=== PATIENT | male | born 1955 | race Hispanic/Latino ===

== ENCOUNTER 2017-01-11 10:29 | Emergency (ER) | payer MEDICARE, OTHER ==
[2017-01-11 10:30] VITALS: BMI 24.4
[2017-01-11 10:41] VITALS: BP 145/70; PULSE 89; RESP 20; TEMP 97.8; O2SAT 99
--- NOTE | 2017-01-11 11:17 | ED PDOC ---
Lower Extremity Pain/Injury Time Seen by Provider: 01/11/17 10:45 Chief Complaint (Nursing): Lower Extremity Problem/Injury Chief Complaint (Provider): Right Leg Pain History Per: Patient History/Exam Limitations: no limitations Current Symptoms Are (Timing): Still Present Additional Complaint(s): Delano Stone, a 61 year old male, who had a below the knee left leg amputation 6 weeks ago presents to the ED complaining of right foot pain. He states that he was at home when the pain started. The patient states he has gangrene in his right foot and pain in his right toes. Denies any other medical problems. PMD: Sudhakar Wesley Past Medical History Reviewed: Historical Data, Nursing Documentation, Vital Signs Vital Signs: Last Vital Signs Temp 97.8 F 01/11/17 10:40 Pulse 89 01/11/17 10:40 Resp 20 01/11/17 10:40 BP 145/70 01/11/17 10:40 Pulse Ox 99 01/11/17 10:40 - Medical History PMH: Anemia, Anxiety, Diabetes, HTN, Hypercholesterolemia, Peripheral Edema ( rle +1) Denies: Alzheimer's Disease, Depression, HIV, Chronic Kidney Disease Other PMH: Left leg below the knee amputation. - Surgical History Surgical History: CABG Other surgeries: 3 way bypass surgery. - Family History Family History: States: Unknown Family Hx - Social History Current smoker - smoking cessation education provided: Yes SMOKER/PACKS PER DAY:: 1 (1 pack per day for 42 years) Alcohol: None Drugs: Denies - Home Medications Home Medications: Ambulatory Orders Medication Instructions Recorded Oxycodone HCl [Oxycontin] 20 mg PO Q12 01/07/17 Zolpidem [Ambien] 10 mg PO HS 01/07/17 metFORMIN [glucOPHAGE] 500 mg PO BID 01/07/17 traMADol [Ultram] 50 mg PO Q8 PRN 01/07/17 Doxycycline Hyclate [Doryx] 100 mg PO Q12 #14 cap 01/09/17 Lisinopril [Zestril] 2.5 mg PO DAILY #30 tab 01/09/17 levoFLOXacin [Levaquin] 750 mg PO DAILY #7 tab 01/09/17 - Allergies Allergies/Adverse Reactions: Allergies Allergy/AdvReac Type Severity Reaction Status Date / Time No Known Allergies Allergy Verified 01/11/17 10:46 Review of Systems Musculoskeletal: Positive for: Foot Pain (Right foot pain) Physical Exam - Reviewed Nursing Documentation Reviewed: Yes Vital Signs Reviewed: Yes - Physical Exam Appears: Positive for: Non-toxic, No Acute Distress Head Exam: Positive for: ATRAUMATIC, NORMAL INSPECTION, NORMOCEPHALIC Skin: Positive for: Normal Color, Warm, Dry Eye Exam: Positive for: Normal appearance, EOMI, PERRL ENT: Positive for: Normal ENT Inspection (Edentulous) Neck: Positive for: Normal, Painless ROM, Supple Cardiovascular/Chest: Positive for: Regular Rate, Rhythm, Chest Non Tender. Negative for: Tachycardia Respiratory: Positive for: Normal Breath Sounds. Negative for: Wheezing, Respiratory Distress Gastrointestinal/Abdominal: Positive for: Normal Exam, Bowel Sounds, Soft. Negative for: Tenderness, Distended, Guarding, Rebound Back: Positive for: Normal Inspection Extremity: Positive for: Normal ROM, Other (Left leg below the knee amputation, no induration;No edema; Toes positive for gangrene). Negative for: Tenderness, Pedal Edema, Deformity, Swelling Neurologic/Psych: Positive for: Alert, Oriented - Laboratory Results Result Diagrams: 01/11/17 11:59 01/11/17 12:00 - ECG O2 Sat by Pulse Oximetry: 99 (RA) Pulse Ox Interpretation: Normal Medical Decision Making Medical Decision Makin Initial Impression: 61 year old male presenting with right foot pain Initial Plan: * EKG * Comp Metabolic Panel * CBC * Erythrocyte Sedimentation Rate * Partial thromboplastin time * Prothrombonin time * Toradol 30mg IV * Blood culture * [id number] * RAD right foot * Reevaluation Scribe Attestation Documented by Kanika King acting as a scribe for Charu Patel MD. Provider Attestation: All medical record entries made by the Scribe were at my direction and personally dictated by me. I have reviewed the chart and agree that the record accurately reflects my personal performance of the history, physical exam, medical decision making, and the department course for this patient. I have also personally directed, reviewed, and agree with the discharge instructions and disposition. Disposition - Clinical Impression Clinical Impression: Diabetic neuropathy - Patient ED Disposition Is Patient to be Admitted: No Doctor Will See Patient In The: Office Counseled Patient/Family Regarding: Diagnosis, Need For Followup - Disposition Referrals: Stew Murphy DO [Family Provider] - Disposition: Routine/Home Disposition Time: 16:43 Condition: STABLE Instructions: Diabetic Neuropathy (ED), Peripheral Artery Disease (ED) - POA Present On Arrival: None
[2017-01-11] MEDS ORDERED: Sodium Chloride 0.9% 1,000 ML IV STA (11:22)
[2017-01-11 12:03] LABS: BASO # 0.1 K/uL (0.0-0.2); EOS # 0.5 K/uL (0.0-0.7); EOS % 6.1 % (0.0-4.0); HEMOGLOBIN 11.2 g/dL (12.0-18.0); LYMPH # 1.8 K/uL (1.0-4.3); LYMPH % 22.6 % (20.0-40.0); MEAN CELL VOLUME 88.4 fl (80.0-94.0); MEAN CORPUSCULAR HEMOGLOBIN 29.6 pg (27.0-31.0); MEAN CORPUSCULAR HGB CONC 33.5 g/dL (33.0-37.0); MEAN PLATELET VOLUME 9.3 fl (7.2-11.7); MONO # 0.7 K/uL (0.0-0.8); MONO % 8.3 % (0.0-10.0); NEUT # 4.9 K/uL (1.8-7.0); NRBC % 0.1 % (0.0-0.0); RBC 3.79 Mil/uL (4.40-5.90); RED CELL DISTRIBUTION WIDTH 14.1 % (11.5-14.5)
[2017-01-11 12:10] LABS: ALB/GLOB RATIO 1.1 (1.0-2.1); ALBUMIN 3.6 g/dL (3.5-5.0); ALT/SGPT 33 U/L (21-72); AST/SGOT 22 U/L (17-59); BLOOD UREA NITROGEN 20 mg/dl (9-20); CALCIUM 8.9 mg/dL (8.4-10.2); GFR AFRICAN-AMERICAN > 60; GFR NON-AFRICAN AMERICAN > 60
[2017-01-11 12:45] LABS: PARTIAL THROMBOPLASTIN TIME 30.4 Seconds (25.6-37.1); PROTHROMBIN TIME 11.2 Seconds (9.8-13.1)
--- NOTE | 2017-01-11 14:47 | RAD ---
PROCEDURE: Right Foot Radiographs. HISTORY: pain COMPARISON: Comparison made with radiographs right foot 08/31/2016. The the the the FINDINGS: BONES: No evidence of acute displaced fracture nor dislocation. Questionable localized destructive changes of the medial aspect distal tuft distal phalanx great toe. There also appears to be localized soft tissue loss at this level region as well. Rule out ulceration. Osteomyelitis must be excluded. Mild overgrowth of the head of the 1st metatarsal and moderate DJD 1st MTP joint. There also moderate degenerative changes of the DIP joint 1st toe. Hammertoe deformities 2nd 3rd and 4th digits preclude adequate evaluation of the distal phalanges of these digits. Plantar and posterior calcaneal enthesophyte formation. JOINTS: As above SOFT TISSUES: As above OTHER FINDINGS: None. IMPRESSION: No evidence of acute displaced fracture nor dislocation. Questionable localized destructive changes of the medial aspect distal tuft distal phalanx great toe. There also appears to be localized soft tissue loss at this level region as well. Rule out ulceration. Osteomyelitis must be excluded consider followup MRI. Note this report was placed in PA review folder for followup.
== END 2017-01-11 17:19 | disposition home or self-care (01) ==
LOC: H.ER 10:29
DX: Z89.512 Acquired absence of left leg below knee (principal); E11.40 Type 2 diabetes mellitus with diabetic neuropathy, unspecified; F17.210 Nicotine dependence, cigarettes, uncomplicated; I10 Essential (primary) hypertension; Z79.84 Long term (current) use of oral hypoglycemic drugs; Z95.1 Presence of aortocoronary bypass graft
CPT/HCPCS: 73630; 80053; 82948; 85025; 85610; 85651; 85730; 87040; 96360; 99282; J1885; J7040

== ENCOUNTER 2017-02-02 18:59 | Observation (INO) | payer MEDICARE, OTHER ==
[2017-02-02] MEDS ORDERED: Piperacillin/Tazobact 3.375 GM in Sodium Chloride 0.9% 100 ML IVPB STA (19:29)
--- NOTE | 2017-02-02 19:51 | ED PDOC ---
HPI: General Adult Time Seen by Provider: 02/02/17 19:20 Chief Complaint (Nursing): Lower Extremity Problem/Injury Chief Complaint (Provider): Right foot and left shoulder pain History Per: Patient History/Exam Limitations: no limitations Onset/Duration Of Symptoms: Days (x 5) Current Symptoms Are (Timing): Still Present Additional Complaint(s): Delano is a 61 y/o male who states for the past 5 days hes had pain to the right foot, and that he currently has ulcers there. He is currently under the care of Dr. Bojorquez for diabetic foot ulcer, but is not on antibiotics. Further he states that 1 hour prior to arrival he had sudden onset of atraumatic left shoulder pain which is non-radiating. Denies chest pain, shortness of breath, and palpitations. PMD: Dr. Bojorquez Past Medical History Reviewed: Historical Data, Nursing Documentation, Vital Signs Vital Signs: Last Vital Signs Temp 98.2 F 02/02/17 19:04 Pulse 83 02/02/17 19:04 Resp 16 02/02/17 19:04 BP 141/73 02/02/17 19:04 Pulse Ox 100 02/02/17 21:40 - Medical History PMH: Anemia, Anxiety, Diabetes, HTN, Hypercholesterolemia, Peripheral Edema ( rle +1) Denies: Alzheimer's Disease, Depression, HIV, Chronic Kidney Disease - Surgical History Surgical History: CABG (x 3) Other surgeries: stress test done in 06/2016 - Family History Family History: States: Unknown Family Hx - Home Medications Home Medications: Ambulatory Orders Medication Instructions Recorded Oxycodone HCl [Oxycontin] 20 mg PO Q12 01/07/17 Zolpidem [Ambien] 10 mg PO HS 01/07/17 traMADol [Ultram] 50 mg PO Q8 PRN 01/07/17 Aspirin [Aspirin Chewable] 81 mg PO DAILY #14 01/26/17 Isosorbide Mononitrate [Imdur] 60 mg PO DAILY #14 tab 01/26/17 Lisinopril [Zestril] 2.5 mg PO DAILY #14 tab 01/26/17 Metformin HCl [Glucophage] 500 mg PO BID #30 tablet 01/26/17 - Allergies Allergies/Adverse Reactions: Allergies Allergy/AdvReac Type Severity Reaction Status Date / Time No Known Allergies Allergy Verified 01/25/17 14:21 Review of Systems ROS Statement: Except As Marked, All Systems Reviewed And Found Negative Cardiovascular: Negative for: Chest Pain, Palpitations Respiratory: Negative for: Shortness of Breath Musculoskeletal: Positive for: Shoulder Pain (Left), Foot Pain (Right) Physical Exam - Reviewed Nursing Documentation Reviewed: Yes Vital Signs Reviewed: Yes - Physical Exam Appears: Positive for: Non-toxic, No Acute Distress Head Exam: Positive for: ATRAUMATIC, NORMOCEPHALIC Skin: Positive for: Normal Color, Warm, Dry Eye Exam: Positive for: EOMI, Normal appearance, PERRL Neck: Positive for: Normal, Painless ROM, Supple Cardiovascular/Chest: Positive for: Regular Rate, Rhythm. Negative for: Murmur Respiratory: Positive for: Normal Breath Sounds. Negative for: Accessory Muscle Use, Respiratory Distress Pulses-Dorsalis Pedis (R): 2+ Gastrointestinal/Abdominal: Positive for: Normal Exam, Soft. Negative for: Tenderness Back: Positive for: Normal Inspection. Negative for: L CVA Tenderness, R CVA Tenderness, Vertebral Tenderness Extremity: Positive for: Deformity (Left BKA), Other (Wet gangrene on R 4th toe ; dry gangrene on right great toe) Neurologic/Psych: Positive for: Alert, Oriented - Laboratory Results Result Diagrams: 02/02/17 20:34 02/02/17 20:34 - ECG O2 Sat by Pulse Oximetry: 100 (RA) Pulse Ox Interpretation: Normal - Radiology X-Ray: Interpreted by Me (CXR, L shoulder x-ray) X-Ray Interpretation: No Acute Disease - Progress ED Course And Treament: Pt. evaluated by Mikki, podiatry resident, who spoke with Dr. Ríos and states R 4th toe gangrene is wet and pt. requires admission. Case d/w Dr. Gustafson, hospitalist, and arrangements made for admission. Medical Decision Making Medical Decision Making: Time: 19:29 Initial Plan: --Labs --CXR --EKG --Started Vancomycin and Zosyn --Pending X-Ray Right Foot and Left Shoulder Scribe Attestation: Documented by Jocelyne Joya, acting as a scribe for Tyrone Young PA-C. Provider Scribe Attestation: All medical record entries made by the Scribe were at my direction and personally dictated by me. I have reviewed the chart and agree that the record accurately reflects my personal performance of the history, physical exam, medical decision making, and the department course for this patient. I have also personally directed, reviewed, and agree with the discharge instructions and disposition. Disposition - Clinical Impression Clinical Impression: Toe gangrene - Patient ED Disposition Is Patient to be Admitted: No - Disposition Disposition Time: 21:38 Condition: STABLE
[2017-02-02 20:39] LABS: BASO # 0.1 K/uL (0.0-0.2); BASO % 0.5 % (0.0-2.0); EOS # 0.4 K/uL (0.0-0.7); EOS % 4.1 % (0.0-4.0); HEMATOCRIT 36.9 % (35.0-51.0); LYMPH # 1.8 K/uL (1.0-4.3); LYMPH % 17.6 % (20.0-40.0); MEAN CORPUSCULAR HEMOGLOBIN 29.9 pg (27.0-31.0); MEAN PLATELET VOLUME 10.1 fl (7.2-11.7); MONO # 0.7 K/uL (0.0-0.8); MONO % 6.3 % (0.0-10.0); NEUT # 7.5 K/uL (1.8-7.0); NEUT % 71.5 % (50.0-75.0); RED CELL DISTRIBUTION WIDTH 14.2 % (11.5-14.5); WHITE BLOOD COUNT 10.4 K/uL (4.8-10.8)
[2017-02-02 20:48] LABS: ALB/GLOB RATIO 1.1 (1.0-2.1); ALKALINE PHOSPHATASE 87 U/L (38-126); ALT/SGPT 30 U/L (21-72); AST/SGOT 22 U/L (17-59); BILIRUBIN,TOTAL 0.5 mg/dl (0.2-1.3); BLOOD UREA NITROGEN 29 mg/dl (9-20); CALCIUM 9.7 mg/dL (8.4-10.2); CARBON DIOXIDE 24 mmol/L (22-30); CHLORIDE 109 mmol/L (98-107); GFR AFRICAN-AMERICAN > 60; GLUCOSE,RANDOM 138 mg/dL (75-110); POTASSIUM 4.8 MMOL/L (3.6-5.0); SODIUM 142 mmol/l (132-148); TOTAL PROTEIN 7.9 G/DL (6.3-8.2)
[2017-02-02] MEDS ORDERED: Piperacillin/Tazobact 3.375 gm Inj IVPB ONE (20:56)
[2017-02-02] MEDS ORDERED: Vancomycin 1 g Inj ONE (20:56)
--- NOTE | 2017-02-02 21:09 | CP.PCM.CON ---
History of Present Illness - History of Present Illness History of Present Illness: 61 y/o male with PMHx of CAD s/p CABG, IVDA, Hepatitis C, DM, osteomyelitis, and L BKA seen at bedside today podiatry consult. Pt is well known to podiatry service at [facility] and was [place] [facility] [place] and advised to follow-up at the wound care center. He was also seen on 01/26 by podiatry at [place] and confirmed his appointment to follow up with his pulper operator Dr. Colunga. Patient states he came to [facility] today because he was in the area and he experienced sudden onset left arm pain. Pt seen resting comfortably in the bed at time of visit this afternoon. Pt complains of tenderness and pain to the right foot today, specifically the 4th digit. Pt denies F/C/N/V/SOB. Social: denies EtOH. Admits to 1 pack cigarettes/day. Denies illicit drug use. All: NKDA Review of Systems - Review of Systems All systems: reviewed and no additional remarkable complaints except (per HPI) Past Patient History - Infectious Disease Hx of Infectious Diseases: None - Tetanus Immunizations Tetanus Immunization: Up to Date (07/2014) - Past Medical History & Family History Past Medical History?: Yes - Past Social History Smoking Status: Current Some Days Smoker - CARDIAC Hx Hypercholesterolemia: Yes Hx Hypertension: Yes Hx Peripheral Edema: Yes (rle +1) - PULMONARY Hx Respiratory Disorders: Yes Other/Comment: smoke 1PPD - NEUROLOGICAL Hx Alzheimer's Disease: No - HEENT Hx HEENT Problems: No - RENAL Hx Chronic Kidney Disease: No - ENDOCRINE/METABOLIC Hx Endocrine Disorders: Yes Hx Diabetes Mellitus Type 2: Yes - HEMATOLOGICAL/ONCOLOGICAL Hx Anemia: Yes Hx Human Immunodeficiency Virus (HIV): No - INTEGUMENTARY Hx Dermatological Problems: Yes (SKIN DISCOLORATION) Other/Comment: l bka,rt 3RD,4TH TOES AND grt TOE - MUSCULOSKELETAL/RHEUMATOLOGICAL Hx Musculoskeletal Disorders: Yes Hx Falls: Yes Hx Osteomyelitis: Yes Hx Unsteady Gait: Yes Other/Comment: lbka - GASTROINTESTINAL Hx Gastrointestinal Disorders: No - GENITOURINARY/GYNECOLOGICAL Hx Genitourinary Disorders: Yes Hx Prostate Problems: Yes (PROSTATE ca) - PSYCHIATRIC Hx Anxiety: Yes Hx Depression: No - SURGICAL HISTORY Hx Coronary Artery Bypass Graft: Yes (x 3) - ANESTHESIA Hx Anesthesia: Yes Hx Anesthesia Reactions: No Hx Malignant Hyperthermia: No Meds Allergies/Adverse Reactions: Allergies Allergy/AdvReac Type Severity Reaction Status Date / Time No Known Allergies Allergy Verified 01/25/17 14:21 Physical Exam - Constitutional Appears: Well, Non-toxic, No Acute Distress - Extremities Exam Additional comments: Lower extremity focused examination: Left: BKA stump Right: Vasc: DP and PT pulses palpable 2/4, temperature gradient warm to cold from proximal to distal. CFT < 3 sec to all digits, no pedal edema Neuro: protective sensation grossly diminished Derm: Dry eschar on distal aspect of right hallux. No fluctuance, no malodor, no drainage, no erythema. Wet ulceration noted to distal aspect of 4th toe with fibronecrotic base. Localized erythema noted to 4th digit distally surrounding wound. No purulence, no fluctuance, no ascending cellulitis Ortho: Moderate pain on palpation to 4th digit. No tenderness to palpation of hallux - Neurological Exam Neurological exam: Alert, Oriented x3 - Psychiatric Exam Psychiatric exam: Normal Affect, Normal Mood Results - Vital Signs Recent Vital Signs: Last Vital Signs Temp 98.2 F 02/02/17 19:04 Pulse 83 02/02/17 19:04 Resp 16 02/02/17 19:04 BP 141/73 02/02/17 19:04 Pulse Ox 100 02/02/17 19:52 - Labs Result Diagrams: 02/02/17 20:34 02/02/17 20:34 Labs: Laboratory Results - last 24 hr 02/02/17 20:34 WBC 10.4 RBC 4.20 L Hgb 12.5 Hct 36.9 MCV 88.0 MCH 29.9 MCHC 34.0 RDW 14.2 Plt Count 324 MPV 10.1 Neut % (Auto) 71.5 Lymph % (Auto) 17.6 L [place] % (Auto) 6.3 Eos % (Auto) 4.1 H Baso % (Auto) 0.5 Neut # 7.5 H Lymph # 1.8 Price # 0.7 Eos # 0.4 Baso # 0.1 Assessment & Plan - Assessment and Plan (Free Text) Assessment: 61 year old male with right foot dry gangrene to hallux and diabetic foot ulceration to 4th toe Plan: Pt seen and evaluated in ED Discussed plan in detail with attending Dr. Rivreo Chart, labs and vitals were reviewed: afebrile, WBC 10.4 Stat dose of Vanco/Zosyn dispensed by ED Betadine and DSD applied to right foot wounds. Dressing to be kept C/D/I Pt to be admitted for left arm pain F/U ID for IV abx - recommendations appreciated Podiatry will continue to monitor closely while in house
[2017-02-02] MEDS ORDERED: Sodium Chloride 0.9% 1,000 ML IV STA (21:11)
[2017-02-02 21:14] LABS: VENOUS BLOOD GAS BASE EXCESS -10.3 mmol/L (0.0-2.0); VENOUS BLOOD GAS PCO2 63 mmHg (40-60); VENOUS BLOOD PH 7.11 (7.32-7.43)
--- NOTE | 2017-02-02 21:47 | CP.PCM.HP ---
History of Present Illness - History of Present Illness History of Present Illness: PCP: Dr Bojorquez Chief Complaint: Left shoulder and right foot pain HPI: 61 years old Homeless male who was discharged from [facility] on 01/23 diagnosed with Dry gangrene of the right foot has hx of PVD, DM II and diabetic foot ulcers, HLD, Smoker, CAD s/p CABG comes to the ED with one hr of sudden unset, non-radiating left shoulder pain which was continuous. He took no medication. He also complained of 5 days of right foot and leg pain, area of his ulceration. He is being followed by Dr Bojorquez for his Diabetic foot ulcer. No fever, Chills, Chest pain, SOB nor Palpitations. PMH: Anemia, Anxiety, DM II with Diabetic Neuropathy and Diabetic foot Ulcers; HTN; HLD; Peripheral Edema (rle +1); Hepatitis C; CAD; Osteomyelitis; Prostate Ca PSH: CABG x3 vessel disease; Left BKA SH: Hx Cocaine and IVDA; ETOH abuse; 1PPD smoking of cigarettes; Homeless FH: Unknown family Hx Allergies: NKDA Present on Admission - Present on Admission Any Indicators Present on Admission: No History of DVT/PE: No History of Uncontrolled Diabetes: No Urinary Catheter: No Decubitus Ulcer Present: No Review of Systems - Constitutional Constitutional: absent: Anorexia, Fever, Malaise, Night Sweats, Snoring - EENT Eyes: Requires Corrective Lenses. absent: Blurred Vision, Diplopia, Photophobia Ears: absent: Ear Pain, Tinnitus Nose/Mouth/Throat: absent: Epistaxis, Nasal Congestion, Nasal Discharge - Cardiovascular Cardiovascular: absent: Chest Pain, Dyspnea, Leg Edema - Respiratory Respiratory: absent: Cough, Dyspnea, Wheezing - Gastrointestinal Gastrointestinal: absent: Abdominal Pain, Constipation, Diarrhea, Nausea, Vomiting - Genitourinary Genitourinary: absent: Dysuria, Flank Pain, Hematuria - Musculoskeletal Additional comments: Pain to the right leg andfoor. left shoulder pain - Integumentary Integumentary: Skin Pain, Skin Ulcer - Neurological Neurological: absent: Confusion, Dizziness, Focal Weakness, Headaches - Psychiatric Psychiatric: Anxiety. absent: Depression, Panic Attacks - Endocrine Endocrine: absent: Palpitations, Polydipsia, Polyphagia, Polyuria - Hematologic/Lymphatic Hematologic: absent: Easy Bleeding, Easy Bruising Past Patient History - Infectious Disease Hx of Infectious Diseases: None - Tetanus Immunizations Tetanus Immunization: Up to Date (07/2014) - Past Medical History & Family History Past Medical History?: Yes - Past Social History Smoking Status: Current Some Days Smoker Chewing Tobacco Use: No Cigar Use: No Drugs: Cocaine, Opiates Home Situation {Lives}: Homeless - CARDIAC Hx Hypercholesterolemia: Yes Hx Hypertension: Yes Hx Peripheral Edema: Yes (rle +1) - PULMONARY Hx Respiratory Disorders: Yes Other/Comment: smoke 1PPD - NEUROLOGICAL Hx Alzheimer's Disease: No - HEENT Hx HEENT Problems: No - RENAL Hx Chronic Kidney Disease: No - ENDOCRINE/METABOLIC Hx Endocrine Disorders: Yes Hx Diabetes Mellitus Type 2: Yes - HEMATOLOGICAL/ONCOLOGICAL Hx Anemia: Yes Hx Human Immunodeficiency Virus (HIV): No - INTEGUMENTARY Hx Dermatological Problems: Yes (SKIN DISCOLORATION) Other/Comment: l bka,rt 3RD,4TH TOES AND grt TOE - MUSCULOSKELETAL/RHEUMATOLOGICAL Hx Musculoskeletal Disorders: Yes Hx Falls: Yes Hx Osteomyelitis: Yes Hx Unsteady Gait: Yes Other/Comment: lbka - GASTROINTESTINAL Hx Gastrointestinal Disorders: No - GENITOURINARY/GYNECOLOGICAL Hx Genitourinary Disorders: Yes Hx Prostate Problems: Yes (PROSTATE ca) - PSYCHIATRIC Hx Anxiety: Yes Hx Depression: No - SURGICAL HISTORY Hx Coronary Artery Bypass Graft: Yes (x 3) - ANESTHESIA Hx Anesthesia: Yes Hx Anesthesia Reactions: No Hx Malignant Hyperthermia: No Meds Allergies/Adverse Reactions: Allergies Allergy/AdvReac Type Severity Reaction Status Date / Time No Known Allergies Allergy Verified 01/25/17 14:21 Physical Exam - Constitutional Appears: No Acute Distress - Head Exam Head Exam: ATRAUMATIC, NORMAL INSPECTION, NORMOCEPHALIC - Eye Exam Eye Exam: EOMI, Normal appearance Pupil Exam: NORMAL ACCOMODATION, PERRL - ENT Exam ENT Exam: Mucous Membranes Dry, Normal Exam - Neck Exam Neck exam: Positive for: Full Rom, Normal Inspection. Negative for: Lymphadenopathy, Tenderness - Respiratory Exam Respiratory Exam: Clear to Auscultation Bilateral. absent: Rales, Rhonchi, Wheezes - Cardiovascular Exam Cardiovascular Exam: REGULAR RHYTHM, RRR, +S1, +S2 - GI/Abdominal Exam GI & Abdominal Exam: Normal Bowel Sounds, Soft. absent: Mass, Organomegaly - Rectal Exam Rectal Exam: Deferred - Extremities Exam Additional comments: L BKA Right foot and distal leg with wound dressing, clean and dry. recently done by Podiatry. - Back Exam Back exam: NORMAL INSPECTION. absent: CVA tenderness (L), CVA tenderness (R) - Neurological Exam Additional comments: Sleepy , arousable with pain but falls back to sleep. Says that he is tired. No facial droop, moving both upper extremities, Clear speech. - Skin Skin Exam: Intact, Normal Color, Warm Results - Vital Signs Recent Vital Signs: Last Vital Signs Temp 98.2 F 02/02/17 19:04 Pulse 83 02/02/17 19:04 Resp 16 02/02/17 19:04 BP 141/73 02/02/17 19:04 Pulse Ox 100 02/02/17 21:40 - Labs Result Diagrams: 02/02/17 20:34 02/02/17 20:34 Labs: Laboratory Results - last 24 hr 02/02/17 02/02/17 02/02/17 20:34 20:34 20:47 WBC 10.4 RBC 4.20 L Hgb 12.5 Hct 36.9 MCV 88.0 MCH 29.9 MCHC 34.0 RDW 14.2 Plt Count 324 MPV 10.1 Neut % (Auto) 71.5 Lymph % (Auto) 17.6 L [place] % (Auto) 6.3 Eos % (Auto) 4.1 H Baso % (Auto) 0.5 Neut # 7.5 H Lymph # 1.8 [place] # 0.7 Eos # 0.4 Baso # 0.1 pO2 VBG pH VBG pCO2 VBG HCO3 VBG Total CO2 VBG O2 Sat (Calc) VBG Base Excess Glucose Lactate FiO2 Crit Value Called To Crit Value Called By Crit Value Read Back Blood Gas Notified Time Sodium 142 Potassium 4.8 Chloride 109 H Carbon Dioxide 24 Anion Gap 14 BUN 29 H Creatinine 1.0 Est GFR ( Amer) > 60 Est GFR (Non-Af Amer) > 60 Random Glucose 138 H Calcium 9.7 Total Bilirubin 0.5 AST 22 ALT 30 Alkaline Phosphatase 87 Troponin I 0.0360 Total Protein 7.9 Albumin 4.2 Globulin 3.7 Albumin/Globulin Ratio 1.1 02/02/17 21:04 WBC RBC Hgb Hct MCV MCH MCHC RDW Plt Count MPV Neut % (Auto) Lymph % (Auto) [place] % (Auto) Eos % (Auto) Baso % (Auto) Neut # Lymph # [place] # Eos # Baso # pO2 36 VBG pH 7.11 L* VBG pCO2 63 H VBG HCO3 15.5 VBG Total CO2 21.9 L VBG O2 Sat (Calc) 60.9 VBG Base Excess -10.3 L Glucose 136 H Lactate 1.9 FiO2 21.0 Crit Value Called To Pepito persaud Crit Value Called By 23 Crit Value Read Back Y Blood Gas Notified Time 2112 Sodium 123.0 L Potassium Chloride 107.0 Carbon Dioxide Anion Gap BUN Creatinine Est GFR ( Amer) Est GFR (Non-Af Amer) Random Glucose Calcium Total Bilirubin AST ALT Alkaline Phosphatase Troponin I Total Protein Albumin Globulin Albumin/Globulin Ratio Assessment & Plan - Assessment and Plan (Free Text) Plan: 61 years old Homeless male who was discharged from [facility] on diagnosed with Dry gangrene of the right foot has hx of PVD, DM II and diabetic foot ulcers, HLD, Smoker, CAD s/p CABG comes to the ED with one hr of sudden unset, non-radiating left shoulder pain which was continuous.He also complained of 5 days of right foot and leg pain, area of his ulceration. #. Shoulder Pain r/o CAD as patient has significant hx of CAD, but probably it is muscular - Observation in Telemetry - Consult Dr Hidalgo cardiology - Serial Troponin - Serial EKG - ASA - Imdur #. Diabetic Foot Ulcee r/o Osteomyelitis - Consult Dr Ríos Podiatry - Vancomycin - zosyn - Tramadol for pain - Podiatry following #. DM II with diabetic neuropathy - Diabetic Diet - Regular Insulin sliding scall according to accucheck - Metformin - Follow HbA1c #. Dehydration - IV Fluids #. Hx of Hepatitis C #. Nicotine addiction - nicotine patch - DVT Prophylaxis with Lovenox #. Code Status: Full - Date & Time Date: 02/02/17 Time: 21:46
[2017-02-02] MEDS ORDERED: Naloxone 0.4 mg/ml Inj (Adult) IVP STA (22:01)
[2017-02-02] MEDS ORDERED: Sodium Chloride 0.45% 1,000 ML IV SCH (23:00)
[2017-02-03 02:05] VITALS: BMI 24.1
[2017-02-03] MEDS ORDERED: Piperacillin/Tazobact 3.375 GM in Sodium Chloride 0.9% 100 ML IVPB SCH (04:00)
[2017-02-03 05:20] LABS: BASO # 0.1 K/uL (0.0-0.2); BASO % 0.8 % (0.0-2.0); EOS # 0.5 K/uL (0.0-0.7); EOS % 6.3 % (0.0-4.0); HEMATOCRIT 33.2 % (35.0-51.0); LYMPH # 1.9 K/uL (1.0-4.3); LYMPH % 22.4 % (20.0-40.0); MEAN CELL VOLUME 88.8 fl (80.0-94.0); MEAN CORPUSCULAR HEMOGLOBIN 29.3 pg (27.0-31.0); MEAN PLATELET VOLUME 9.9 fl (7.2-11.7); MONO # 0.7 K/uL (0.0-0.8); MONO % 7.9 % (0.0-10.0); NEUT # 5.3 K/uL (1.8-7.0); NEUT % 62.6 % (50.0-75.0); RED CELL DISTRIBUTION WIDTH 13.9 % (11.5-14.5); WHITE BLOOD COUNT 8.5 K/uL (4.8-10.8)
[2017-02-03 05:31] LABS: BLOOD UREA NITROGEN 26 mg/dl (9-20); CALCIUM 8.7 mg/dL (8.4-10.2); CARBON DIOXIDE 22 mmol/L (22-30); CHLORIDE 110 mmol/L (98-107); GFR AFRICAN-AMERICAN > 60; GLUCOSE,RANDOM 132 mg/dL (75-110); POTASSIUM 4.1 MMOL/L (3.6-5.0); SODIUM 140 mmol/l (132-148)
[2017-02-03 05:46] LABS: PARTIAL THROMBOPLASTIN TIME 26.4 Seconds (25.6-37.1)
[2017-02-03] MEDS: Insulin Regular 100 units/ml SC SCH ×2 (06:30→11:43)
[2017-02-03 08:23] VITALS: RESP 12
--- NOTE | 2017-02-03 08:25 | CP.PCM.PN ---
Subjective - Date & Time of Evaluation Date of Evaluation: 02/03/17 Time of Evaluation: 08:00 - Subjective Subjective: 61 year old male seen at bedside today for right hallux and 4th digit dry gangrene. Patient seen resting comfortably, AAO x3 and in NAD. Patient states that he is in a lot of pain today to the right foot. Denies n/v/sob/cp/chills or f. No other pedal complaint at this time. Objective - Vital Signs/Intake and Output Vital Signs (last 24 hours): Temp Pulse Resp BP Pulse Ox 97.5 F L 60 12 158/75 H 99 02/03/17 08:00 02/03/17 08:11 02/03/17 08:00 02/03/17 08:11 02/03/17 08:00 Intake and Output: 02/03/17 02/03/17 06:59 18:59 Intake Total 1250 Output Total 500 Balance 750 - Medications Medications: Current Medications Aspirin (Ecotrin) 81 mg PO DAILY [facility] Last Admin: 02/03/17 08:10 Dose: 81 mg Enoxaparin Sodium (Lovenox) 40 mg SC DAILY [facility] PRN Reason: Protocol Sodium Chloride (Sodium Chloride 0.45%) 1,000 mls @ 100 mls/hr IV .Q10H [facility] Stop: 02/03/17 22:52 Last Admin: 02/03/17 01:00 Dose: 100 mls/hr Insulin Human Regular (Humulin R) 0 units SC ACHS [facility] PRN Reason: Protocol Last Admin: 02/03/17 06:30 Dose: Not Given Isosorbide Mononitrate (Imdur) 60 mg PO DAILY [facility] Last Admin: 02/03/17 08:10 Dose: 60 mg Ketorolac Tromethamine (Toradol) 15 mg IVP Q6 PRN PRN Reason: Pain, severe (8-10) Lisinopril (Zestril) 2.5 mg PO DAILY [facility] Last Admin: 02/03/17 08:11 Dose: 2.5 mg Metformin HCl (Glucophage) 500 mg PO BID [facility] Last Admin: 02/03/17 08:10 Dose: 500 mg Nicotine (Nicoderm Cq) 1 patch TD DAILY [facility] Last Admin: 02/03/17 08:10 Dose: 1 patch Tramadol HCl (Ultram) 50 mg PO Q8 PRN PRN Reason: Pain (4-10) Last Admin: 02/02/17 23:45 Dose: 50 mg - Labs Labs: 02/03/17 04:20 02/03/17 04:20 PT 11.4 Seconds (9.8-13.1) 02/03/17 04:20 INR 1.0 (0.9-1.2) 02/03/17 04:20 APTT 26.4 Seconds (25.6-37.1) 02/03/17 04:20 - Constitutional Appears: Well, Non-toxic, No Acute Distress - Extremities Exam Additional comments: Vasc: DP and PT pulses palpable 2/4, temperature gradient warm to cold from proximal to distal. IRON MINER < 3 sec to all digits, no edema noted Neuro: protective sensation grossly diminished Derm: Dry eschar noted to the distal aspect of right hallux. No fluctuance, no malodor, no drainage, no erythema, no purulence noted. Wet ulceration noted to distal aspect of 4th toe with fibronecrotic base. Localized erythema noted to 4th digit distally surrounding wound. No purulence, no fluctuance, no ascending cellulitis Ortho: Moderate pain on palpation to 4th digit. No tenderness to palpation of hallux - Neurological Exam Neurological Exam: Alert, Awake, Oriented x3 - Psychiatric Exam Psychiatric exam: Normal Affect, Normal Mood Assessment and Plan - Assessment and Plan (Free Text) Assessment: 61 year old male with right foot dry gangrene to hallux and diabetic foot ulceration to 4th toe Plan: Pt seen and evaluated at bedside Discussed plan in detail with attending Dr. Rivero Chart, labs and vitals were reviewed: afebrile, WBC 8.5 Betadine and DSD applied to right foot wounds. Dressing to be kept C/D/I X-rays reviewed- no gas noted, no bony abnormalities noted at the area of concern Podiatry will continue to follow while in house
[2017-02-03 08:30] LABS: RBC URINE 32 /hpf (0-3); URINE BACTERIA RARE (<OCC); URINE BILIRUBIN NEGATIVE (NEGATIVE); URINE BLOOD MODERATE (NEGATIVE); URINE COLOR YELLOW (YELLOW); URINE GLUCOSE (UA) 50 mg/dL (Normal); URINE KETONE NEGATIVE (NEGATIVE); URINE LEUKOCYTE ESTERASE LARGE Leu/uL (Negative); URINE PROTEIN 30 mg/dL (NEGATIVE); URINE UROBILINOGEN 0.2-1.0 mg/dL (0.2-1.0); WBC URINE 364 /hpf (0-5)
[2017-02-03] MEDS ORDERED: Enoxaparin 40 mg Syringe SC SCH (09:00)
[2017-02-03] MEDS ORDERED: Patient's Own Med (Lisinopril [Zestril] 2.5 MG) PO SCH (09:00)
--- NOTE | 2017-02-03 09:04 | CP.PCM.DIS ---
Provider - Provider Date of Admission: 02/02/17 19:28 Attending physician: Eric Gustafson Primary care physician: Dr. Abraham Consults: podiatry consult Time Spent in preparation of Discharge (in minutes): 15 Hospital Course - Lab Results Lab Results: Most Recent Lab Values WBC 8.5 K/uL (4.8-10.8) 02/03/17 04:20 RBC 3.73 Mil/uL (4.40-5.90) L 02/03/17 04:20 Hgb 10.9 g/dL (12.0-18.0) L 02/03/17 04:20 Hct 33.2 % (35.0-51.0) L 02/03/17 04:20 MCV 88.8 fl (80.0-94.0) 02/03/17 04:20 MCH 29.3 pg (27.0-31.0) 02/03/17 04:20 MCHC 33.0 g/dL (33.0-37.0) 02/03/17 04:20 RDW 13.9 % (11.5-14.5) 02/03/17 04:20 Plt Count 261 K/uL (130-400) 02/03/17 04:20 MPV 9.9 fl (7.2-11.7) 02/03/17 04:20 Neut % (Auto) 62.6 % (50.0-75.0) 02/03/17 04:20 Lymph % (Auto) 22.4 % (20.0-40.0) 02/03/17 04:20 [place] % (Auto) 7.9 % (0.0-10.0) 02/03/17 04:20 Eos % (Auto) 6.3 % (0.0-4.0) H 02/03/17 04:20 Baso % (Auto) 0.8 % (0.0-2.0) 02/03/17 04:20 Neut # 5.3 K/uL (1.8-7.0) 02/03/17 04:20 Lymph # 1.9 K/uL (1.0-4.3) 02/03/17 04:20 [place] # 0.7 K/uL (0.0-0.8) 02/03/17 04:20 Eos # 0.5 K/uL (0.0-0.7) 02/03/17 04:20 Baso # 0.1 K/uL (0.0-0.2) 02/03/17 04:20 PT 11.4 Seconds (9.8-13.1) 02/03/17 04:20 INR 1.0 (0.9-1.2) 02/03/17 04:20 APTT 26.4 Seconds (25.6-37.1) 02/03/17 04:20 pO2 36 mm/Hg (30-55) 02/02/17 21:04 VBG pH 7.11 (7.32-7.43) L* 02/02/17 21:04 VBG pCO2 63 mmHg (40-60) H 02/02/17 21:04 VBG HCO3 15.5 mmol/L 02/02/17 21:04 VBG Total CO2 21.9 mmol/L (22-28) L 02/02/17 21:04 VBG O2 Sat (Calc) 60.9 % (40-65) 02/02/17 21:04 VBG Base Excess -10.3 mmol/L (0.0-2.0) L 02/02/17 21:04 Sodium 123.0 mmol/L (132-148) L 02/02/17 21:04 Chloride 107.0 mmol/L (98-107) 02/02/17 21:04 Glucose 136 mg/dL (75-110) H 02/02/17 21:04 Lactate 1.9 mmol/L (0.7-2.1) 02/02/17 21:04 FiO2 21.0 % 02/02/17 21:04 Crit Value Called To Pepito persaud 02/02/17 21:04 Crit Value Called By 23 02/02/17 21:04 Crit Value Read Back Y 02/02/17 21:04 Blood Gas Notified Time 211202/02/17 21:04 Sodium 140 mmol/l (132-148) 02/03/17 04:20 Potassium 4.1 MMOL/L (3.6-5.0) 02/03/17 04:20 Chloride 110 mmol/L (98-107) H 02/03/17 04:20 Carbon Dioxide 22 mmol/L (22-30) 02/03/17 04:20 Anion Gap 12 (10-20) 02/03/17 04:20 BUN 26 mg/dl (9-20) H 02/03/17 04:20 Creatinine 1.0 mg/dL (0.8-1.5) 02/03/17 04:20 Est GFR ( Amer) > 60 02/03/17 04:20 Est GFR (Non-Af Amer) > 60 02/03/17 04:20 POC Glucose (mg/dL) 124 mg/dL (65-110) H 02/03/17 04:30 Random Glucose 132 mg/dL (75-110) H 02/03/17 04:20 Calcium 8.7 mg/dL (8.4-10.2) 02/03/17 04:20 Total Bilirubin 0.5 mg/dl (0.2-1.3) 02/02/17 20:34 AST 22 U/L (17-59) 02/02/17 20:34 ALT 30 U/L (21-72) 02/02/17 20:34 Alkaline Phosphatase 87 U/L (38-126) 02/02/17 20:34 Troponin I 0.0420 ng/mL (0.00-0.120) 02/03/17 04:20 Total Protein 7.9 G/DL (6.3-8.2) 02/02/17 20:34 Albumin 4.2 g/dL (3.5-5.0) 02/02/17 20:34 Globulin 3.7 gm/dL (2.2-3.9) 02/02/17 20:34 Albumin/Globulin Ratio 1.1 (1.0-2.1) 02/02/17 20:34 Urine Color Yellow (YELLOW) 02/03/17 07:30 Urine Clarity Cloudy (Clear) 02/03/17 07:30 Urine pH 5.0 (5.0-8.0) 02/03/17 07:30 Ur Specific [place] 1.020 (1.003-1.030) 02/03/17 07:30 Urine Protein 30 mg/dL (NEGATIVE) 02/03/17 07:30 Urine Glucose (UA) 50 mg/dL (Normal) 02/03/17 07:30 Urine Ketones Negative mg/dL (NEGATIVE) 02/03/17 07:30 Urine Blood Moderate (NEGATIVE) 02/03/17 07:30 Urine Nitrate Negative (NEGATIVE) 02/03/17 07:30 Urine Bilirubin Negative (NEGATIVE) 02/03/17 07:30 Urine Urobilinogen 0.2-1.0 mg/dL (0.2-1.0) 02/03/17 07:30 Ur Leukocyte Esterase Large Brandon/uL (Negative) 02/03/17 07:30 Urine RBC (Auto) 32 /hpf (0-3) H 02/03/17 07:30 Urine Microscopic WBC 364 /hpf (0-5) H 02/03/17 07:30 Ur Squamous Epith Cells < 1 /hpf (0-5) 02/03/17 07:30 Urine Bacteria Rare (<OCC) 02/03/17 07:30 Urine Yeast (Budding) Few /hpf (NEGATIVE) H 02/03/17 07:30 - Hospital Course Hospital Course: 61 years old male with PMH of PVD, DM II and diabetic foot ulcers, HLD, Smoker , CAD s/p CABG who was discharged from [facility] on 01/27 for chest pain after ruling out ACS and 01/23 for foot pain and chronic Dry gangrene of the right foot , came to ER with sudden onset of non-radiating left shoulder pain which was continuous.He also complained of right foot and leg pain, that is chronic. Due to his history of CAD patient was placed under observation for shoulder pain / chest pain to rule out ACS Troponin x2 were negative, EKG showed NSR with no ST-T wave changes. patient with no pain at present, hemodynamically stable Left shoulder Xray showed no acute pathology , no fracture no dislocation Podiatry was consulted for right foot dry gangrene and case was discussed . patient will need to follow up with her drying can worker as out patient . no surgical intervention or IV antibiotics needed at this time patient is hemodynamically stable for discharge Advise follow up with his drying can worker and PMD 1. ACS ruled out 2. Shoulder Pain probably is muscular 3. Diabetic Foot Ulcer-- chronic dry gangrene no need for any surgicakl intervention or IV antibiotics. Follow up with his drying can worker 4. DM II with diabetic neuropathy 5. History left BKA 6. Hx of Hepatitis C 7. Nicotine addiction - nicotine patch Discharge Exam - Head Exam Head Exam: ATRAUMATIC, NORMAL INSPECTION, NORMOCEPHALIC - Eye Exam Eye Exam: EOMI, Normal appearance, PERRL Pupil Exam: NORMAL ACCOMODATION - ENT Exam ENT Exam: Mucous Membranes Moist, Normal Exam - Neck Exam Neck exam: Full Rom, Normal Inspection - Respiratory Exam Respiratory Exam: Clear to PA & Lateral, NORMAL BREATHING PATTERN. absent: Rhonchi, Wheezes, Respiratory Distress - Cardiovascular Exam Cardiovascular Exam: REGULAR RHYTHM, RRR, +S1, +S2. absent: JVD - GI/Abdominal Exam GI & Abdominal Exam: Normal Bowel Sounds, Soft. absent: Distended, Guarding, Rebound, Tenderness - Rectal Exam Rectal Exam: Deferred - Extremities Exam Additional comments: left BKA Dry eschar to the distal aspect of right hallux. No fluctuance, no malodor, no drainage, no erythema, no purulence noted. Wet ulceration noted to distal aspect of 4th toe with fibronecrotic base. Localized erythema noted to 4th digit distally surrounding wound. No purulence, no fluctuance, no ascending cellulitis Moderate pain on palpation to 4th digit. No tenderness to palpation of hallux - Neurological Exam Neurological exam: Alert, CN II-XII Intact, Oriented x3 - Psychiatric Exam Psychiatric exam: Agitated, Flat Affect - Skin Skin Exam: Dry, Warm Discharge Plan - Follow Up Plan Condition: STABLE Disposition: HOME/ ROUTINE Patient education suggested?: Yes Referrals: Isidro Colunga DPM [Non-Staff] -
--- NOTE | 2017-02-03 10:13 | RAD ---
PROCEDURE: CHEST RADIOGRAPH, 1 VIEW HISTORY: L shoulder pain COMPARISON: None available. FINDINGS: LUNGS: Clear. PLEURA: No pneumothorax or pleural fluid seen. CARDIOVASCULAR: No radiographic findings to suggest acute or significant cardiovascular disease.Incidental Finding(s): Postoperative changes related to sternotomy. OSSEOUS STRUCTURES: No significant abnormalities. Healed left clavicular fracture VISUALIZED UPPER ABDOMEN: Normal. OTHER FINDINGS: None. IMPRESSION: No active disease.
--- NOTE | 2017-02-03 11:59 | RAD ---
PROCEDURE: Radiographs of the Left Shoulder HISTORY: pain COMPARISON: No prior. FINDINGS: BONES: No acute fracture. Old, healed clavicular fracture. JOINTS: Normal. Glenohumeral and acromioclavicular joints preserved. No osteoarthritis. SOFT TISSUES: Normal. OTHER FINDINGS: None. IMPRESSION: No acute findings related to/accounting for the clinical presentation. Additional benign and/or incidental findings described above. No preliminary report provided by emergency department personnel.
[2017-02-03 12:27] VITALS: TEMP 98.1; O2SAT 100
--- NOTE | 2017-02-03 13:14 | RAD ---
PROCEDURE: Right Foot Radiographs. HISTORY: pain COMPARISON: None. FINDINGS: BONES: No acute fractures. Plantar and Achilles Tendon insertion calcaneal spurs. Erosive changes distal phalanx 1st digit. Hammertoe deformities noted. JOINTS: Normal. SOFT TISSUES: Normal. OTHER FINDINGS: None. IMPRESSION: No acute findings related to/accounting for the clinical presentation. No preliminary report provided by emergency department personnel.
[2017-02-03 14:38] VITALS: BP 135/62; PULSE 100
--- NOTE | 2017-02-04 18:10 | CARD ---
APPROVED REPORT EKG Measurement Heart [id number] <Conclusion> Sinus bradycardia Otherwise normal ECG
--- NOTE | 2017-02-04 18:22 | CARD ---
APPROVED REPORT EKG Measurement Heart [id number] <Conclusion> Normal sinus rhythm Normal ECG
== END 2017-02-03 14:39 | disposition home or self-care (01) ==
LOC: H.ER 18:59 → H.ERHOLD 19:28 → INTOOBSV 19:28 → OBSVTOIN 19:28 → H.EROBSV 19:28 → H.ICU/CCU 02-03 00:03
PROVIDERS: ADMIT Internal Medicine; ATTEND Internal Medicine
DX: E11.52 Type 2 diabetes mellitus with diabetic peripheral angiopathy with gangrene (principal); Z86.19 Personal history of other infectious and parasitic diseases; E11.40 Type 2 diabetes mellitus with diabetic neuropathy, unspecified; E11.621 Type 2 diabetes mellitus with foot ulcer; L97.519 Non-pressure chronic ulcer of other part of right foot with unspecified severity; Z89.512 Acquired absence of left leg below knee; E78.00 Pure hypercholesterolemia, unspecified; E78.5 Hyperlipidemia, unspecified; F17.200 Nicotine dependence, unspecified, uncomplicated; I10 Essential (primary) hypertension; I25.10 Atherosclerotic heart disease of native coronary artery without angina pectoris; Z59.0 Homelessness; Z85.46 Personal history of malignant neoplasm of prostate; Z95.1 Presence of aortocoronary bypass graft; D64.9 Anemia, unspecified; F10.10 Alcohol abuse, uncomplicated; F41.9 Anxiety disorder, unspecified; Z79.84 Long term (current) use of oral hypoglycemic drugs; M25.512 Pain in left shoulder; R26.81 Unsteadiness on feet
CPT/HCPCS: 71010; 73030; 73630; 80048; 80053; 81003; 82803; 82948; 83036; 84484; 85025; 85610; 85730; 87040; 87081; 93005; 99285; G0378; J1885; J2543; J7030; J7040

== ENCOUNTER 2017-02-28 09:48 | Inpatient (IN) | payer MEDICARE, OTHER ==
[2017-02-28 09:48] VITALS: BMI 24.1
[2017-02-28] MEDS ORDERED: Sodium Chloride 0.9% 1,000 ML IV STA (10:15)
--- NOTE | 2017-02-28 10:20 | ED PDOC ---
Lower Extremity Pain/Injury Time Seen by Provider: 02/28/17 09:53 Chief Complaint (Nursing): Lower Extremity Problem/Injury Chief Complaint (Provider): Lower Extremity Problem/Injury History Per: Patient History/Exam Limitations: no limitations Onset/Duration Of Symptoms: Days (x3 days) Current Symptoms Are (Timing): Still Present Additional Complaint(s): 61 y/o female with a past medical history of diabetes who presents to the emergency department with a complaint of pain and swelling to the right foot and toes x3 days. Associated with drainage. Denies fever. Past Medical History Reviewed: Historical Data, Nursing Documentation, Vital Signs Vital Signs: Last Vital Signs Temp 98 F 02/28/17 09:51 Pulse 81 02/28/17 09:51 Resp BP 165/72 H 02/28/17 09:51 Pulse Ox 98 02/28/17 09:51 - Medical History PMH: Anemia, Anxiety, CAD, Diabetes, HTN, Hypercholesterolemia, Peripheral Edema Denies: Alzheimer's Disease, Depression, HIV, Chronic Kidney Disease - Surgical History Surgical History: CABG (x 3) - Family History Family History: States: Unknown Family Hx - Immunization History Hx Influenza Vaccination: No - Home Medications Home Medications: Ambulatory Orders Medication Instructions Recorded metFORMIN [glucOPHAGE] 500 mg PO BID tab 02/09/17 metFORMIN [glucOPHAGE] 500 mg PO BID #60 tab 02/25/17 traZODone [Desyrel] 50 mg PO HS #30 tab 02/25/17 - Allergies Allergies/Adverse Reactions: Allergies Allergy/AdvReac Type Severity Reaction Status Date / Time No Known Allergies Allergy Verified 02/28/17 10:00 Review of Systems ROS Statement: Except As Marked, All Systems Reviewed And Found Negative Constitutional: Negative for: Fever Musculoskeletal: Positive for: Foot Pain (Right foot and toes with swelling and drainage) Physical Exam - Reviewed Nursing Documentation Reviewed: Yes Vital Signs Reviewed: Yes - Physical Exam Appears: Positive for: Non-toxic, No Acute Distress Head Exam: Positive for: ATRAUMATIC, NORMAL INSPECTION, NORMOCEPHALIC Skin: Positive for: Normal Color, Warm, Dry Extremity: Positive for: Normal ROM, Swelling (Swelling of the right foot), Other (1st and 4th toes with necrotic and drainage with foul smelling discharge. ) Neurologic/Psych: Positive for: Alert, Oriented (x3) - ECG O2 Sat by Pulse Oximetry: 98 (RA) Pulse Ox Interpretation: Normal Medical Decision Making Medical Decision Making: Time: 09:57 Initial impression: Right foot pain and swelling Initial plan: --VBG --CMP --CBC w/ diff --Blood Culture --Reevaluation Scribe Attestation: Documented by Kristie Owens, acting as a scribe for Costa Billings MD. Provider Scribe Attestation: All medical record entries made by the Scribe were at my direction and personally dictated by me. I have reviewed the chart and agree that the record accurately reflects my personal performance of the history, physical exam, medical decision making, and the department course for this patient. I have also personally directed, reviewed, and agree with the discharge instructions and disposition. Disposition - Clinical Impression Clinical Impression: Diabetes, Diabetic foot infection - Patient ED Disposition Is Patient to be Admitted: Yes - Disposition Disposition Time: 10:26 Condition: FAIR - Pt Status Changed To: Hospital Disposition Of: Inpatient - Admit Certification Admit to Inpatient:: After my assessment, the patient will require hospitalization for at least two midnights. This is because of the severity of symptoms shown, intensity of services needed, and/or the medical risk in this patient being treated as an outpatient. - POA Present On Arrival: Poor Glycemic Control
[2017-02-28 10:40] LABS: VENOUS BLOOD GAS BASE EXCESS 0.6 mmol/L (0.0-2.0); VENOUS BLOOD GAS PCO2 55 mmHg (40-60); VENOUS BLOOD PH 7.31 (7.32-7.43)
[2017-02-28 10:45] LABS: BASO # 0.1 K/uL (0.0-0.2); BASO % 0.6 % (0.0-2.0); EOS # 0.5 K/uL (0.0-0.7); EOS % 4.6 % (0.0-4.0); HEMATOCRIT 33.7 % (35.0-51.0); LYMPH # 1.3 K/uL (1.0-4.3); LYMPH % 13.5 % (20.0-40.0); MEAN CELL VOLUME 87.9 fl (80.0-94.0); MEAN CORPUSCULAR HEMOGLOBIN 29.6 pg (27.0-31.0); MEAN CORPUSCULAR HGB CONC 33.6 g/dL (33.0-37.0); MEAN PLATELET VOLUME 8.8 fl (7.2-11.7); MONO # 0.6 K/uL (0.0-0.8); NEUT # 7.4 K/uL (1.8-7.0); NEUT % 75.3 % (50.0-75.0); WHITE BLOOD COUNT 9.9 K/uL (4.8-10.8)
[2017-02-28 10:58] LABS: ALKALINE PHOSPHATASE 77 U/L (38-126); ALT/SGPT 20 U/L (21-72); AST/SGOT 23 U/L (17-59); BILIRUBIN,TOTAL 0.3 mg/dl (0.2-1.3); BLOOD UREA NITROGEN 33 mg/dl (9-20); CALCIUM 9.3 mg/dL (8.4-10.2); CARBON DIOXIDE 26 mmol/L (22-30); CHLORIDE 101 mmol/L (98-107); GFR AFRICAN-AMERICAN > 60; GLUCOSE,RANDOM 158 mg/dL (75-110); POTASSIUM 4.7 MMOL/L (3.6-5.0); SODIUM 136 mmol/l (132-148); TOTAL PROTEIN 7.7 G/DL (6.3-8.2)
[2017-02-28] MEDS ORDERED: Vancomycin 1 g Inj ONE (10:58)
--- NOTE | 2017-02-28 11:10 | RAD ---
HISTORY: COMPARISON: 02/02/2017. TECHNIQUE: Chest PA and lateral FINDINGS: LINES AND TUBES: None. LUNG AND PLEURA: The lungs are well inflated and clear. HEART AND MEDIASTINUM: The heart is not enlarged. Status post CABG. The hilar and mediastinal contours are within normal limits. SKELETAL STRUCTURES: The bony structures are within normal limits for the patient's age. VISUALIZED UPPER ABDOMEN: Normal. OTHER FINDINGS: None. IMPRESSION: No active pulmonary disease.
--- NOTE | 2017-02-28 11:15 | RAD ---
PROCEDURE: Right Foot Radiographs. HISTORY: cellulitis COMPARISON: 02/02/2017. FINDINGS: BONES: There is diffuse bone demineralization. There is no acute fracture or bone destruction. There is a large plantar calcaneal spur. JOINTS: Normal. SOFT TISSUES: There is moderate soft tissue swelling at the dorsal foot. OTHER FINDINGS: None. IMPRESSION: Moderate dorsal soft tissue swelling most compatible with cellulitis with the stated clinical history. No radiographic evidence for osteomyelitis. If clinically indicated, an MRI may be performed.
--- NOTE | 2017-02-28 12:58 | CP.PCM.CON ---
History of Present Illness - History of Present Illness History of Present Illness: 61 y/o male with PMHx of seen at bedside in ED complaining of pain and swelling in his right lower extremity. Patient appears in NAD. Patient is a poor historian is not responding to verbal commands. Patient appears to be sleeping for the most of the time. Patient states that he follows up with Dr. Colunga at [facility] for his foot pain. Patient denied of any recent F/N/V/C/SOB today. PMHx: PSHx: Allergies: N.K.D.A Review of Systems - EENT Eyes: As Per HPI Past Patient History - Infectious Disease Hx of Infectious Diseases: None - Tetanus Immunizations Tetanus Immunization: Up to Date (07/2014) - Past Medical History & Family History Past Medical History?: Yes - Past Social History Smoking Status: Heavy Smoker > 10 Cigarettes Daily - CARDIAC Hx Cardiac Disorders: Yes (CABG, HTN, HIGH CHOLESTEROL) - PULMONARY Hx Respiratory Disorders: No - NEUROLOGICAL Hx Alzheimer's Disease: No - HEENT Hx HEENT Problems: No - RENAL Hx Chronic Kidney Disease: No - ENDOCRINE/METABOLIC Hx Endocrine Disorders: Yes (DM) - HEMATOLOGICAL/ONCOLOGICAL Hx Blood Disorders: Yes (ANEMIA) - INTEGUMENTARY Hx Dermatological Problems: Yes (SKIN DISCOLORATION) Other/Comment: l bka,rt 3RD,4TH TOES AND grt TOE - MUSCULOSKELETAL/RHEUMATOLOGICAL Hx Musculoskeletal Disorders: Yes (degenerative disorder) - GASTROINTESTINAL Hx Gastrointestinal Disorders: No - GENITOURINARY/GYNECOLOGICAL Hx Genitourinary Disorders: Yes (Prrostate CA) - PSYCHIATRIC Hx Psychophysiologic Disorder: Yes (anxiety) - SURGICAL HISTORY Hx Coronary Artery Bypass Graft: Yes (x 3) - ANESTHESIA Hx Anesthesia: Yes Hx Anesthesia Reactions: No Hx Malignant Hyperthermia: No Meds Allergies/Adverse Reactions: Allergies Allergy/AdvReac Type Severity Reaction Status Date / Time No Known Allergies Allergy Verified 02/28/17 10:00 - Medications Medications: Current Medications Sodium Chloride (Sodium Chloride 0.9%) 1,000 mls @ 100 mls/hr IV .Q10H [facility] Stop: 02/28/17 20:14 Last Admin: 02/28/17 11:05 Dose: 100 mls/hr Physical Exam - Constitutional Appears: Well, Non-toxic, No Acute Distress - Extremities Exam Additional comments: VASC: DP/PT pulses are palpable 1/4 on the right, STAPLE CUTTER: > 3 sec to digits, TG: cool to cool from proximal to distal, +1 pitting edema noted on the dorsum of the right foot DERM: Distal tip of right hallux as well as 4th digit is necrotic with no active drainage, no malodor and appears dry, on the medial aspect of the 4th digit, very minimal serous/purulent drainage on the medial aspect of the 4th digit in the interspace with distal medial tip maceration, dorsal digits appears to be erythematous, no probe to bone, no undermining, no tunneling NEURO: Protective sensation mildly diminished ORTHO: Pain on palpation of the distal tip of the 1st and 4th digit on the right , left BKA - Psychiatric Exam Psychiatric exam: Normal Affect, Normal Mood Results - Vital Signs Recent Vital Signs: Last Vital Signs Temp 97.2 F L 02/28/17 12:36 Pulse 59 L 02/28/17 12:36 Resp 16 02/28/17 12:36 BP 167/77 H 02/28/17 12:36 Pulse Ox 100 02/28/17 12:36 - Labs Result Diagrams: 02/28/17 10:40 02/28/17 10:40 Labs: Laboratory Results - last 24 hr 02/28/17 02/28/17 10:40 10:40 WBC 9.9 RBC 3.83 L Hgb 11.3 L Hct 33.7 L MCV 87.9 MCH 29.6 MCHC 33.6 RDW 14.0 Plt Count 287 MPV 8.8 Neut % (Auto) 75.3 H Lymph % (Auto) 13.5 L Dixon % (Auto) 6.0 Eos % (Auto) 4.6 H Baso % (Auto) 0.6 Neut # 7.4 H Lymph # 1.3 Dixon # 0.6 Eos # 0.5 Baso # 0.1 Sodium 136 Potassium 4.7 Chloride 101 Carbon Dioxide 26 Anion Gap 14 BUN 33 H Creatinine 1.1 Est GFR ( Amer) > 60 Est GFR (Non-Af Amer) > 60 Random Glucose 158 H Calcium 9.3 Total Bilirubin 0.3 AST 23 ALT 20 L D Alkaline Phosphatase 77 Total Protein 7.7 Albumin 3.8 Globulin 3.8 Albumin/Globulin Ratio 1.0 Assessment & Plan - Assessment and Plan (Free Text) Assessment: 61 y/o male seen at bedside in ED for 1st and 4th digit dry gangrene with cellulitis Plan: Patient evaluated and chart reviewed Patient discussed in details with attending Dr. Almazan Labs and vitals reviewed (afebrile, WBC @ 9.9) Dressing applied using betadine, DSD Patient to receive oral abx augmentin 875mg PO BID for 10 days Patient to follow up in wound care center Patient educated to return to ED if any systemic symptoms arises Patient demonstrated verbal understanding Thank you for the podiatry consult - Date & Time Date: 02/28/17 Time: 11:50
[2017-02-28] MEDS: Sodium Chloride 0.45% 1,000 ML IV SCH (17:18)
[2017-02-28] MEDS: Piperacillin/Tazobact 3.375 GM in Sodium Chloride 0.9% 100 ML IVPB SCH (17:28)
[2017-02-28] MEDS ORDERED: Pneumococcal 23-Valent Vaccine IM ONE (21:00)
[2017-03-01] MEDS: Piperacillin/Tazobact 3.375 GM in Sodium Chloride 0.9% 100 ML IVPB SCH ×3 (01:32→17:12)
[2017-03-01] MEDS: Sodium Chloride 0.45% 1,000 ML IV SCH ×2 (01:36→10:21)
--- NOTE | 2017-03-01 08:08 | CP.PCM.HP ---
History of Present Illness - History of Present Illness History of Present Illness: CC: PAin and Swelling of Right Foot History of Present Illness: A 61 y/o male with PMHx of seen at bedside in ED complaining of pain and swelling in his right foot with necrotic distal tip of the 1st and 4th digit. Patient appears in NAD. Patient is a poor historian. Patient states that he follows up with Dr. Colunga at [place] for his foot pain. Patient denied of any recent F/N/V/C/SOB today. Heavy Tobacco use 1 PPD. Present on Admission - Present on Admission Any Indicators Present on Admission: No Review of Systems - Review of Systems All systems: reviewed and no additional remarkable complaints except Past Patient History - Infectious Disease Hx of Infectious Diseases: None - Tetanus Immunizations Tetanus Immunization: Up to Date (07/2014) - Past Medical History & Family History Past Medical History?: Yes Past Family History: Reviewed and not pertinent - Past Social History Smoking Status: Heavy Smoker > 10 Cigarettes Daily Alcohol: None Drugs: Cannabis - CARDIAC Hx Cardiac Disorders: Yes (CABG, HTN, HIGH CHOLESTEROL) Hx Hypercholesterolemia: Yes Hx Hypertension: Yes Other/Comment: Cardiac stress test 06/20. ABG-3 vessels - PULMONARY Hx Respiratory Disorders: Yes Other/Comment: smokes 1 pack per day - NEUROLOGICAL Hx Neurological Disorder: No Hx Alzheimer's Disease: No - HEENT Hx HEENT Problems: No - RENAL Hx Chronic Kidney Disease: No - ENDOCRINE/METABOLIC Hx Endocrine Disorders: Yes (DM) Hx Diabetes Mellitus Type 2: Yes - HEMATOLOGICAL/ONCOLOGICAL Hx Blood Disorders: Yes (ANEMIA) Hx AIDS: No Hx Anemia: Yes Hx Cancer: Yes (PROSTATE) Hx Hepatitis C: Yes Hx Human Immunodeficiency Virus (HIV): No - INTEGUMENTARY Hx Dermatological Problems: Yes (SKIN DISCOLORATION) Other/Comment: l bka,rt 3RD,4TH TOES AND grt TOE - MUSCULOSKELETAL/RHEUMATOLOGICAL Hx Musculoskeletal Disorders: Yes (degenerative disorder) Hx Falls: Yes Hx Osteomyelitis: Yes - GASTROINTESTINAL Hx Gastrointestinal Disorders: No - GENITOURINARY/GYNECOLOGICAL Hx Genitourinary Disorders: Yes (Prostate CA) Hx Prostate Cancer: Yes Hx Prostate Problems: Yes - PSYCHIATRIC Hx Psychophysiologic Disorder: Yes (anxiety) Hx Anxiety: Yes Hx Substance Use: Yes - SURGICAL HISTORY Hx Surgeries: Yes Hx Amputation: Yes (LBKA) Hx Coronary Artery Bypass Graft: Yes (x 3) Hx Femoral-Popliteal Bypass Graft: Yes - ANESTHESIA Hx Anesthesia: Yes Hx Anesthesia Reactions: No Hx Malignant Hyperthermia: No Has any member of the family had a problem w/ anesthesia?: No Meds Allergies/Adverse Reactions: Allergies Allergy/AdvReac Type Severity Reaction Status Date / Time No Known Allergies Allergy Verified 02/28/17 10:00 Physical Exam - Constitutional Appears: Well, No Acute Distress - Head Exam Head Exam: ATRAUMATIC, NORMAL INSPECTION, NORMOCEPHALIC - Eye Exam Eye Exam: EOMI, Normal appearance, PERRL Pupil Exam: NORMAL ACCOMODATION, PERRL - ENT Exam Additional comments: Poor oral Hygiene - Neck Exam Neck exam: Positive for: Normal Inspection - Respiratory Exam Respiratory Exam: Clear to Auscultation Bilateral, NORMAL BREATHING PATTERN - Cardiovascular Exam Cardiovascular Exam: REGULAR RHYTHM, +S1, +S2 - GI/Abdominal Exam GI & Abdominal Exam: Normal Bowel Sounds, Soft. absent: Tenderness - Rectal Exam Rectal Exam: NORMAL INSPECTION - Exam Bimanual exam: NORMAL BIMANUAL EXAM - Extremities Exam Additional comments: -Distal tip of right Hallux as well as 4th digit is necrotic with no active drainage, no malodor and appears dry, on the medial aspect of the 4th digit, very minimal serous/purulent drainage on the medial aspect of the 4th digit in the inter-space with distal medial tip maceration, dorsal digits appears to be erythematous, no probe to bone, no undermining, no tunneling -Left BKA - Back Exam Back exam: NORMAL INSPECTION. absent: CVA tenderness (L), CVA tenderness (R) - Neurological Exam Neurological exam: Alert, CN II-XII Intact, Normal Gait, Oriented x3, Reflexes Normal - Psychiatric Exam Psychiatric exam: Normal Affect, Normal Mood - Skin Skin Exam: Normal Color Results - Vital Signs Recent Vital Signs: Last Vital Signs Temp 98.3 F 03/01/17 01:00 Pulse 71 03/01/17 01:00 Resp 18 03/01/17 01:00 BP 138/76 03/01/17 01:00 Pulse Ox 97 03/01/17 01:00 - Labs Result Diagrams: 02/28/17 10:40 02/28/17 10:40 Labs: Laboratory Results - last 24 hr 02/28/17 02/28/17 02/28/17 10:40 10:40 16:08 WBC 9.9 RBC 3.83 L Hgb 11.3 L Hct 33.7 L MCV 87.9 MCH 29.6 MCHC 33.6 RDW 14.0 Plt Count 287 MPV 8.8 Neut % (Auto) 75.3 H Lymph % (Auto) 13.5 L [place] % (Auto) 6.0 Eos % (Auto) 4.6 H Baso % (Auto) 0.6 Neut # 7.4 H Lymph # 1.3 [place] # 0.6 Eos # 0.5 Baso # 0.1 Sodium 136 Potassium 4.7 Chloride 101 Carbon Dioxide 26 Anion Gap 14 BUN 33 H Creatinine 1.1 Est GFR ( Amer) > 60 Est GFR (Non-Af Amer) > 60 POC Glucose (mg/dL) 136 H Random Glucose 158 H Calcium 9.3 Total Bilirubin 0.3 AST 23 ALT 20 L D Alkaline Phosphatase 77 Total Protein 7.7 Albumin 3.8 Globulin 3.8 Albumin/Globulin Ratio 1.0 02/28/17 03/01/17 21:24 06:41 WBC RBC Hgb Hct MCV MCH MCHC RDW Plt Count MPV Neut % (Auto) Lymph % (Auto) [place] % (Auto) Eos % (Auto) Baso % (Auto) Neut # Lymph # [place] # Eos # Baso # Sodium Potassium Chloride Carbon Dioxide Anion Gap BUN Creatinine Est GFR ( Amer) Est GFR (Non-Af Amer) POC Glucose (mg/dL) 103 86 Random Glucose Calcium Total Bilirubin AST ALT Alkaline Phosphatase Total Protein Albumin Globulin Albumin/Globulin Ratio - Imaging and Cardiology Right Foot X-Ray: Status: Report reviewed by me Additional comment: IMPRESSION: Moderate dorsal soft tissue swelling most compatible with cellulitis with the stated clinical history. No radiographic evidence for osteomyelitis. If clinically indicated, an MRI may be performed. 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
[2017-03-01] MEDS: Enoxaparin 40 mg Syringe SC SCH (08:50)
--- NOTE | 2017-03-01 12:43 | CP.PCM.CON ---
History of Present Illness - History of Present Illness History of Present Illness: - History of Present Illness History of Present Illness: 61 y/o male admitted with severe necrotizing infection right first and fourth toes associated with pain and swelling of foot Started on empiric IV rx PMHx: DM, HTN, Hypercholesterolemia, Anemia, Anxiety, CAD, Peripheral Edema PSHx: CABG left BKA PSHx: Allergies: N.K.D.A Review of Systems - Constitutional Constitutional: As Per HPI - EENT Eyes: absent: As Per HPI, Blind Spots, Blurred Vision, Change in Vision, Decreased Night Vision, Diplopia, Discharge, Dry Eye, Exophthalmos, Floaters, Irritation, Itchy Eyes, Loss of Peripheral Vision, Pain, Photophobia, Requires Corrective Lenses, Sees Flashes, Spots in Vision, Tunnel Vision, Other Visual Disturbances, Loss of Vision, Other Ears: absent: As Per HPI, Decreased Hearing, Ear Discharge, Ear Pain, Tinnitus, Abnormal Hearing, Disequilibrium, Dizziness, Other Nose/Mouth/Throat: absent: As Per HPI, Epistaxis, Nasal Congestion, Nasal Discharge, Nasal Obstruction, Nasal Trauma, Nose Pain, Post Nasal Drip, Sinus Pain, Sinus Pressure, Bleeding Gums, Change in Voice, Dental Pain, Dry Mouth, Dysphagia, Halitosis, Hoarsness, Lip Swelling, Mouth Lesions, Mouth Pain, Odynophagia, Sore Throat, Throat Swelling, Tongue Swelling, Facial Pain, Neck Pain, Neck Mass, Other - Cardiovascular Cardiovascular: As Per HPI - Respiratory Respiratory: absent: As Per HPI, Cough, Dyspnea, Hemoptysis, Dyspnea on Exertion , Wheezing, Snoring, Stridor, Pain on Inspiration, Chest Congestion, Excessive Mucous Production, Change in Mucous Color, Pain with Coughing, Other - Gastrointestinal Gastrointestinal: absent: As Per HPI, Abdominal Pain, Belching, Bloating, Change in Bowel Habits, Change in Stool Character, Coffee Ground Emesis, Constipation, Cramping, Diarrhea, Dyspepsia, Dysphagia, Early Satiety, Excessive Flatus, Fecal Incontinence, Heartburn, Hematemesis, Hematochezia, Loose Stools, Melena, Nausea, Odynophagia, Temesmus, Vomiting, Other - Genitourinary Genitourinary: absent: As Per HPI, Change in Urinary Stream, Difficulty Urinating, Dysuria, Flank Pain, Hematuria, Pyuria, Nocturia, Urinary Incontinence, Urinary Frequency, Urinary Hesitance, Urinary Urgency, Voiding Freq/Small Amts, Freq UTI, Hx Renal/Bladder Calculi, Hx /Renal Surgery, Bladder Distension, Other - Musculoskeletal Musculoskeletal: As Per HPI - Integumentary Integumentary: As Per HPI, Skin Pain, Wounds - Neurological Neurological: absent: As Per HPI, Abnormal Gait, Abnormal Hearing, Abnormal Movements, Abnormal Speech, Behavioral Changes, Burning Sensations, Confusion, Convulsions, Disequilibrium, Dizziness, Numbness, Focal Weakness, Frequent Falls , Headaches, Lack of Coordination, Loss of Vision, Memory Loss, Paresthesias, Radicular Pain, Restless Legs, Sensory Deficit, Syncope, Tingling, Tremor, Vertigo, Weakness, Other Visual Disturbances, Other - Psychiatric Psychiatric: absent: As Per HPI, Abnormal Sleep Pattern, Anhedonia, Anxiety, Auditory Hallucinations, Behavioral Changes, Change in Appetite, Change in Libido, Confusion, Depression, Difficulty Concentrating, Hallucinations, Homicidal Ideation, Hopelessness, Irritability, Memory Loss, Mood Swings, Panic Attacks, Paranoia, Suicidal Ideation, Visual Hallucinations, Tactile Hallucinations, Other - Endocrine Endocrine: absent: As Per HPI, Change in Body Appearance, Change in Libido, Cold Intolorance, Deepening of Voice, Excessive Sweating, Fatigue, Flushing, Heat Intolorance, Increase in Ring/Shoe/Hat Size, Palpitations, Polydipsia, Polyphagia, Polyuria, Other - Hematologic/Lymphatic Hematologic: absent: As Per HPI, Easy Bleeding, Easy Bruising, Lymphadenopathy, Other Past Patient History - Infectious Disease Hx of Infectious Diseases: None - Tetanus Immunizations Tetanus Immunization: Up to Date (07/2014) - Past Medical History & Family History Past Medical History?: Yes - Past Social History Smoking Status: Heavy Smoker > 10 Cigarettes Daily - CARDIAC Hx Cardiac Disorders: Yes (CABG, HTN, HIGH CHOLESTEROL) Hx Hypercholesterolemia: Yes Hx Hypertension: Yes Other/Comment: Cardiac stress test 06/20. ABG-3 vessels - PULMONARY Hx Respiratory Disorders: Yes Other/Comment: smokes 1 pack per day - NEUROLOGICAL Hx Neurological Disorder: No Hx Alzheimer's Disease: No - HEENT Hx HEENT Problems: No - RENAL Hx Chronic Kidney Disease: No - ENDOCRINE/METABOLIC Hx Endocrine Disorders: Yes (DM) Hx Diabetes Mellitus Type 2: Yes - HEMATOLOGICAL/ONCOLOGICAL Hx Blood Disorders: Yes (ANEMIA) Hx AIDS: No Hx Anemia: Yes Hx Cancer: Yes (PROSTATE) Hx Hepatitis C: Yes Hx Human Immunodeficiency Virus (HIV): No - INTEGUMENTARY Hx Dermatological Problems: Yes (SKIN DISCOLORATION) Other/Comment: l bka,rt 3RD,4TH TOES AND grt TOE - MUSCULOSKELETAL/RHEUMATOLOGICAL Hx Musculoskeletal Disorders: Yes (degenerative disorder) Hx Falls: Yes Hx Osteomyelitis: Yes - GASTROINTESTINAL Hx Gastrointestinal Disorders: No - GENITOURINARY/GYNECOLOGICAL Hx Genitourinary Disorders: Yes (Prostate CA) Hx Prostate Cancer: Yes Hx Prostate Problems: Yes - PSYCHIATRIC Hx Psychophysiologic Disorder: Yes (anxiety) Hx Anxiety: Yes Hx Substance Use: Yes - SURGICAL HISTORY Hx Surgeries: Yes Hx Amputation: Yes (LBKA) Hx Coronary Artery Bypass Graft: Yes (x 3) Hx Femoral-Popliteal Bypass Graft: Yes - ANESTHESIA Hx Anesthesia: Yes Hx Anesthesia Reactions: No Hx Malignant Hyperthermia: No Has any member of the family had a problem w/ anesthesia?: No Meds Allergies/Adverse Reactions: Allergies Allergy/AdvReac Type Severity Reaction Status Date / Time No Known Allergies Allergy Verified 02/28/17 10:00 - Medications Medications: Current Medications Acetaminophen (Tylenol 325mg Tab) 650 mg PO Q6 PRN PRN Reason: Pain, Mild (1-3) Enoxaparin Sodium (Lovenox) 40 mg SC DAILY [facility] PRN Reason: Protocol Last Admin: 03/01/17 08:50 Dose: 40 mg Vancomycin HCl 1 gm/ Sodium (Chloride) 250 mls @ 166.667 mls/hr IVPB Q12 [facility] Last Admin: 03/01/17 10:20 Dose: 166.667 mls/hr Sodium Chloride (Sodium Chloride 0.45%) 1,000 mls @ 100 mls/hr IV .Q10H [facility] Stop: 03/01/17 14:14 Last Admin: 03/01/17 10:21 Dose: Not Given Piperacillin Sod/Tazobactam (Sod 3.375 gm/ Sodium Chloride) 100 mls @ 100 mls/ hr IVPB Q8 [facility] Last Admin: 03/01/17 10:20 Dose: 100 mls/hr Metformin HCl (Glucophage) 500 mg PO BID [facility] Last Admin: 03/01/17 08:50 Dose: 500 mg Morphine Sulfate (Morphine) 1 mg IVP Q4 PRN PRN Reason: Pain, moderate (4-7) Last Admin: 02/28/17 16:19 Dose: 1 mg Morphine Sulfate (Morphine) 2 mg IVP Q4 PRN PRN Reason: Pain, severe (8-10) Last Admin: 03/01/17 10:24 Dose: 2 mg Nicotine (Nicoderm Cq) 1 patch TD DAILY [facility] Trazodone HCl (Desyrel) 50 mg PO HS [facility] Last Admin: 02/28/17 22:51 Dose: 50 mg Physical Exam - Constitutional Appears: Non-toxic, In Acute Distress - Head Exam Head Exam: NORMOCEPHALIC - Eye Exam Eye Exam: absent: Scleral icterus - ENT Exam ENT Exam: Mucous Membranes Dry, Normal External Ear Exam - Neck Exam Neck exam: Negative for: Lymphadenopathy - Respiratory Exam Respiratory Exam: Decreased Breath Sounds, Clear to Auscultation Bilateral - Cardiovascular Exam Cardiovascular Exam: REGULAR RHYTHM, +S1, +S2 - GI/Abdominal Exam GI & Abdominal Exam: Diminished Bowel Sounds, Soft. absent: Tenderness - Rectal Exam Rectal Exam: Deferred - Exam Exam: NORMAL INSPECTION - Extremities Exam Extremities exam: Positive for: pedal edema, tenderness. 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: > 3 sec to digits, TG: cool to cool from proximal to distal, +1 pitting edema noted on the dorsum of the right foot DERM: Distal tip of right hallux as well as 4th digit is necrotic with no active drainage, no malodor and appears dry, on the medial aspect of the 4th digit, very minimal serous/purulent drainage on the medial aspect of the 4th digit in the interspace with distal medial tip maceration, dorsal digits appears to be erythematous, no probe to bone, no undermining, no tunneling NEURO: Protective sensation mildly diminished ORTHO: Pain on palpation of the distal tip of the 1st and 4th digit on the right , left BKA - Back Exam Back exam: absent: CVA tenderness (L), CVA tenderness (R), paraspinal tenderness - Neurological Exam Neurological exam: Alert, CN II-XII Intact, Oriented x3, Reflexes Normal - Psychiatric Exam Psychiatric exam: Normal Mood - Skin Skin Exam: Dry, Intact Results - Vital Signs Recent Vital Signs: Last Vital Signs Temp 97.9 F 03/01/17 08:29 Pulse 51 L 03/01/17 08:29 Resp 20 03/01/17 08:29 BP 162/65 H 03/01/17 08:29 Pulse Ox 97 03/01/17 08:29 - Labs Result Diagrams: 02/28/17 10:40 02/28/17 10:40 Labs: Laboratory Results - last 24 hr 02/28/17 02/28/17 03/01/17 16:08 21:24 06:41 POC Glucose (mg/dL) 136 H 103 86 03/01/17 11:39 POC Glucose (mg/dL) 110 Assessment & Plan - Assessment and Plan (Free Text) Assessment: severe necrotic infection right 1st and 4th toes needs MRI/ vascular eval and cultures IV rx to cont empirically to cover staph strep anaerobes and pseudomonas unfortunately may require amputation
--- NOTE | 2017-03-01 12:45 | CP.PCM.PN ---
Subjective - Date & Time of Evaluation Date of Evaluation: 03/01/17 Time of Evaluation: 11:00 - Subjective Subjective: Podiatry note for Dr. Joyce 61 y/o male seen at bedside this morning for necrotic distal tip of the 1st and 4th digit on the right foot. Patient is AAOx3 and is in NAD. Patient appears to be resting comfortably in bed. Patient states that he has pain in his digits when touched but states that he is managing it well. Patient denies of any other pedal complains. Patient denies of any F/N/V/C/SOB/CP. Objective - Vital Signs/Intake and Output Vital Signs (last 24 hours): Temp Pulse Resp BP Pulse Ox 97.9 F 51 L 20 162/65 H 97 03/01/17 08:29 03/01/17 08:29 03/01/17 08:29 03/01/17 08:29 03/01/17 08:29 - Medications Medications: Current Medications Acetaminophen (Tylenol 325mg Tab) 650 mg PO Q6 PRN PRN Reason: Pain, Mild (1-3) Enoxaparin Sodium (Lovenox) 40 mg SC DAILY [facility] PRN Reason: Protocol Last Admin: 03/01/17 08:50 Dose: 40 mg Vancomycin HCl 1 gm/ Sodium (Chloride) 250 mls @ 166.667 mls/hr IVPB Q12 [facility] Last Admin: 03/01/17 10:20 Dose: 166.667 mls/hr Sodium Chloride (Sodium Chloride 0.45%) 1,000 mls @ 100 mls/hr IV .Q10H [facility] Stop: 03/01/17 14:14 Last Admin: 03/01/17 10:21 Dose: Not Given Piperacillin Sod/Tazobactam (Sod 3.375 gm/ Sodium Chloride) 100 mls @ 100 mls/ hr IVPB Q8 [facility] Last Admin: 03/01/17 10:20 Dose: 100 mls/hr Metformin HCl (Glucophage) 500 mg PO BID [facility] Last Admin: 03/01/17 08:50 Dose: 500 mg Morphine Sulfate (Morphine) 1 mg IVP Q4 PRN PRN Reason: Pain, moderate (4-7) Last Admin: 02/28/17 16:19 Dose: 1 mg Morphine Sulfate (Morphine) 2 mg IVP Q4 PRN PRN Reason: Pain, severe (8-10) Last Admin: 03/01/17 10:24 Dose: 2 mg Nicotine (Nicoderm Cq) 1 patch TD DAILY [facility] Trazodone HCl (Desyrel) 50 mg PO HS [facility] Last Admin: 02/28/17 22:51 Dose: 50 mg - Labs Labs: 02/28/17 10:40 02/28/17 10:40 - Constitutional Appears: Well, Non-toxic, No Acute Distress - Extremities Exam Additional comments: VASC: DP/PT pulses are palpable 1/4 on the right, MEAT STOCKER: > 3 sec to digits, TG: cool to cool from proximal to distal, +1 pitting edema noted on the dorsum of the right foot DERM: Distal tip of right hallux as well as 4th digit is necrotic with no active drainage, no malodor and appears dry, on the medial aspect of the 4th digit, very minimal serous drainage on the medial aspect of the 4th digit in the interspace with distal medial tip maceration, dorsal digits appears to be erythematous, no probe to bone, no undermining, no tunneling NEURO: Protective sensation mildly diminished ORTHO: Pain on palpation of the distal tip of the 1st and 4th digit on the right , left BKA - Neurological Exam Neurological Exam: Alert, Awake, Oriented x3 - Psychiatric Exam Psychiatric exam: Normal Affect, Normal Mood Assessment and Plan - Assessment and Plan (Free Text) Assessment: 61 y/o male seen at bedside for 1st and 4th digit dry gangrene with cellulitis Plan: Patient evaluated and chart reviewed Patient discussed in details with attending Dr. Joyce Labs and vitals reviewed (afebrile, WBC @ 9.9 as of yesterday) Dressing applied using betadine, DSD IV abx as per ID Cultures (Prelim): G+ cocci Podiatry to follow patient while patient is in house
[2017-03-01] MEDS: Insulin Lispro (humaLOG) 100 Units/ml Inj SC SCH (22:54)
[2017-03-02] MEDS: Piperacillin/Tazobact 3.375 GM in Sodium Chloride 0.9% 100 ML IVPB SCH ×3 (00:47→16:08)
[2017-03-02] MEDS: Insulin Lispro (humaLOG) 100 Units/ml Inj SC SCH ×4 (06:53→22:15)
[2017-03-02 07:16] LABS: BASO # 0.1 K/uL (0.0-0.2); BASO % 0.9 % (0.0-2.0); EOS # 0.5 K/uL (0.0-0.7); EOS % 7.5 % (0.0-4.0); LYMPH # 1.4 K/uL (1.0-4.3); LYMPH % 21.9 % (20.0-40.0); MEAN CELL VOLUME 88.3 fl (80.0-94.0); MEAN CORPUSCULAR HGB CONC 32.9 g/dL (33.0-37.0); MEAN PLATELET VOLUME 8.9 fl (7.2-11.7); MONO # 0.6 K/uL (0.0-0.8); MONO % 8.9 % (0.0-10.0); NEUT # 3.8 K/uL (1.8-7.0); NEUT % 60.8 % (50.0-75.0); RED CELL DISTRIBUTION WIDTH 13.6 % (11.5-14.5); WHITE BLOOD COUNT 6.3 K/uL (4.8-10.8)
[2017-03-02 07:31] LABS: BLOOD UREA NITROGEN 21 mg/dl (9-20); CALCIUM 8.9 mg/dL (8.4-10.2); CARBON DIOXIDE 23 mmol/L (22-30); CHLORIDE 106 mmol/L (98-107); CHOLESTEROL 182 mg/dL (0-199); GFR AFRICAN-AMERICAN > 60; GLUCOSE,RANDOM 91 mg/dL (75-110); POTASSIUM 4.6 MMOL/L (3.6-5.0); SODIUM 137 mmol/l (132-148)
[2017-03-02 08:00] LABS: THYROID STIMULATING HORMONE 2.56 mIU/ML (0.46-4.68)
--- NOTE | 2017-03-02 08:02 | CP.PCM.PN ---
Subjective - Date & Time of Evaluation Date of Evaluation: 03/02/17 Time of Evaluation: 08:00 - Subjective Subjective: Podiatry note for Dr. Joyce 61 y/o male seen at bedside this morning for necrotic distal tip of the 1st and 4th digit on the right foot. Patient is AAOx3 and is in NAD. Patient appears to be resting comfortably in bed. Patient states that he has pain in his digits when touched but states that he is managing it well. Patient denies of any other pedal complains. Patient denies of any F/N/V/C/SOB/CP. Objective - Vital Signs/Intake and Output Vital Signs (last 24 hours): Temp Pulse Resp BP Pulse Ox 98.3 F 50 L 20 156/70 H 97 03/02/17 07:26 03/02/17 07:26 03/02/17 07:26 03/02/17 07:26 03/02/17 07:26 - Medications Medications: Current Medications Acetaminophen (Tylenol 325mg Tab) 650 mg PO Q6 PRN PRN Reason: Pain, Mild (1-3) Aspirin (Aspirin Chewable) 81 mg PO DAILY [facility] Enoxaparin Sodium (Lovenox) 40 mg SC DAILY [facility] PRN Reason: Protocol Last Admin: 03/01/17 08:50 Dose: 40 mg Vancomycin HCl 1 gm/ Sodium (Chloride) 250 mls @ 166.667 mls/hr IVPB Q12 [facility] Last Admin: 03/01/17 21:27 Dose: 166.667 mls/hr Piperacillin Sod/Tazobactam (Sod 3.375 gm/ Sodium Chloride) 100 mls @ 100 mls/ hr IVPB Q8 [facility] Last Admin: 03/02/17 00:47 Dose: 100 mls/hr Insulin Human Lispro (Humalog) 0 units SC ACHS [facility] PRN Reason: Protocol Last Admin: 03/02/17 06:53 Dose: Not Given Metformin HCl (Glucophage) 500 mg PO BID [facility] Last Admin: 03/01/17 17:12 Dose: 500 mg Morphine Sulfate (Morphine) 1 mg IVP Q4 PRN PRN Reason: Pain, moderate (4-7) Last Admin: 02/28/17 16:19 Dose: 1 mg Morphine Sulfate (Morphine) 2 mg IVP Q4 PRN PRN Reason: Pain, severe (8-10) Last Admin: 03/02/17 06:18 Dose: 2 mg Nicotine (Nicoderm Cq) 1 patch TD DAILY [facility] Last Admin: 03/01/17 13:39 Dose: 1 patch Trazodone HCl (Desyrel) 50 mg PO HS [facility] Last Admin: 03/01/17 21:32 Dose: 50 mg - Labs Labs: 03/02/17 06:25 03/02/17 06:25 - Constitutional Appears: Well, Non-toxic, No Acute Distress - Extremities Exam Additional comments: VASC: DP/PT pulses are palpable 1/4 on the right, BAY STOCKER: > 3 sec to digits, TG: cool to cool from proximal to distal, +1 pitting edema noted on the dorsum of the right foot DERM: Distal tip of right hallux as well as 4th digit is necrotic with no active drainage, no malodor and appears dry, on the medial aspect of the 4th digit, very minimal serous drainage on the medial aspect of the 4th digit in the interspace with distal medial tip maceration, dorsal digits appears to be erythematous, no probe to bone, no undermining, no tunneling. Cellulitic changes noted to be resolving NEURO: Protective sensation mildly diminished ORTHO: Pain on palpation of the distal tip of the 1st and 4th digit on the right , left BKA - Neurological Exam Neurological Exam: Alert, Awake, Oriented x3 - Psychiatric Exam Psychiatric exam: Normal Affect, Normal Mood Assessment and Plan - Assessment and Plan (Free Text) Assessment: 61 y/o male seen at bedside for 1st and 4th digit dry gangrene with cellulitis Plan: Patient evaluated and chart reviewed Patient discussed in detail with attending Dr. Joyce Labs and vitals reviewed; afebrile, WBC 6.3 Dressing applied using betadine, DSD IV abx as per ID Cultures (Prelim) on 02/28: G+ cocci R foot xray: No evidence of OM No plan for surgical intervention at this time Podiatry to follow patient while patient is in house
[2017-03-02] MEDS: Enoxaparin 40 mg Syringe SC SCH (08:31)
--- NOTE | 2017-03-02 11:08 | CARD ---
APPROVED REPORT EKG Measurement Heart [id number] <Conclusion> Sinus rhythm with occasional premature ventricular complexes Possible Left atrial enlargement Borderline ECG
--- NOTE | 2017-03-02 23:10 | CP.PCM.PN ---
Subjective - Date & Time of Evaluation Date of Evaluation: 03/02/17 Time of Evaluation: 07:40 - Subjective Subjective: +Pain to the Gangrene site despite the pain medications.Denies fever or chills. Objective - Vital Signs/Intake and Output Vital Signs (last 24 hours): Temp Pulse Resp BP Pulse Ox 97.7 F 85 20 147/78 92 L 03/02/17 16:08 03/02/17 16:08 03/02/17 16:08 03/02/17 16:08 03/02/17 16:08 - Medications Medications: Current Medications Acetaminophen (Tylenol 325mg Tab) 650 mg PO Q6 PRN PRN Reason: Pain, Mild (1-3) Aspirin (Aspirin Chewable) 81 mg PO DAILY [facility] Last Admin: 03/02/17 08:34 Dose: 81 mg Enoxaparin Sodium (Lovenox) 40 mg SC DAILY [facility] PRN Reason: Protocol Last Admin: 03/02/17 08:31 Dose: 40 mg Vancomycin HCl 1 gm/ Sodium (Chloride) 250 mls @ 166.667 mls/hr IVPB Q12 [facility] Last Admin: 03/02/17 22:00 Dose: 166.667 mls/hr Piperacillin Sod/Tazobactam (Sod 3.375 gm/ Sodium Chloride) 100 mls @ 100 mls/ hr IVPB Q8 [facility] Last Admin: 03/02/17 16:08 Dose: 100 mls/hr Insulin Human Lispro (Humalog) 0 units SC ACHS [facility] PRN Reason: Protocol Last Admin: 03/02/17 22:15 Dose: Not Given Metformin HCl (Glucophage) 500 mg PO BID [facility] Last Admin: 03/02/17 16:10 Dose: 500 mg Morphine Sulfate (Morphine) 1 mg IVP Q3 PRN PRN Reason: Pain, moderate (4-7) Morphine Sulfate (Morphine) 2 mg IVP Q3 PRN PRN Reason: Pain, severe (8-10) Last Admin: 03/02/17 20:13 Dose: 2 mg Nicotine (Nicoderm Cq) 1 patch TD DAILY [facility] Last Admin: 03/02/17 08:31 Dose: 1 patch Trazodone HCl (Desyrel) 50 mg PO HS [facility] Last Admin: 03/02/17 22:16 Dose: 50 mg - Labs Labs: 03/02/17 06:25 03/02/17 06:25 - Extremities Exam Additional comments: Distal tip of right Hallux as well as 4th digit is necrotic with no active drainage, no malodor and appears dry, on the medial aspect of the 4th digit, very minimal serous/purulent drainage on the medial aspect of the 4th digit in the inter-space with distal medial tip maceration, dorsal digits appears to be erythematous, no probe to bone, no undermining, no tunneling. -Left BKA Assessment and Plan (1) Diabetic foot infection Assessment & Plan: R/O OM IVF IV Vancomycin/Zosyn Pain Medication PRN Inventory Checker on board Status: Acute Priority: Medium (2) COPD (chronic obstructive pulmonary disease) Assessment and Plan: Duoneb Q6 PRN Status: Chronic Priority: Low (3) DM2 (diabetes mellitus, type 2) Assessment and Plan: Accu-check with Low coverage HgA1C- 7.4 Status: Chronic Priority: Low (4) PVD (peripheral vascular disease) Status: Chronic Priority: Low ASA Add Lipitor Quit smoking B/L LE arterial Duplex (5) Tobacco abuse Counselled to Quit smoking Status: Acute
[2017-03-03] MEDS: Piperacillin/Tazobact 3.375 GM in Sodium Chloride 0.9% 100 ML IVPB SCH ×3 (00:14→16:17)
[2017-03-03 06:56] LABS: BASO # 0.1 K/uL (0.0-0.2); BASO % 1.2 % (0.0-2.0); EOS # 0.6 K/uL (0.0-0.7); EOS % 8.3 % (0.0-4.0); HEMATOCRIT 31.9 % (35.0-51.0); LYMPH # 1.6 K/uL (1.0-4.3); LYMPH % 23.9 % (20.0-40.0); MEAN CORPUSCULAR HEMOGLOBIN 29.6 pg (27.0-31.0); MEAN CORPUSCULAR HGB CONC 33.6 g/dL (33.0-37.0); MEAN PLATELET VOLUME 8.7 fl (7.2-11.7); MONO # 0.6 K/uL (0.0-0.8); MONO % 9.6 % (0.0-10.0); NEUT # 3.8 K/uL (1.8-7.0); RED CELL DISTRIBUTION WIDTH 13.7 % (11.5-14.5); WHITE BLOOD COUNT 6.6 K/uL (4.8-10.8)
[2017-03-03 07:03] LABS: BLOOD UREA NITROGEN 21 mg/dl (9-20); CARBON DIOXIDE 22 mmol/L (22-30); CHLORIDE 107 mmol/L (98-107); GFR AFRICAN-AMERICAN > 60; GLUCOSE,RANDOM 98 mg/dL (75-110); POTASSIUM 4.9 MMOL/L (3.6-5.0); SODIUM 138 mmol/l (132-148)
[2017-03-03] MEDS: Insulin Lispro (humaLOG) 100 Units/ml Inj SC SCH ×4 (09:29→22:33)
[2017-03-03] MEDS: Enoxaparin 40 mg Syringe SC SCH (09:31)
--- NOTE | 2017-03-03 10:12 | CP.PCM.PN ---
Subjective - Date & Time of Evaluation Date of Evaluation: 03/03/17 Time of Evaluation: 09:55 - Subjective Subjective: Podiatry note for Dr. Joyce 61 y/o male seen at bedside this morning for necrotic distal tip of the 1st and 4th digit on the right foot. Patient is AAOx3 and is in NAD. Patient appears to be resting comfortably in bed. Patient states that he has pain in his digits when touched but states that he is managing it well. Patient denies of any other pedal complains. Patient denies of any F/N/V/C/SOB/CP. Objective - Vital Signs/Intake and Output Vital Signs (last 24 hours): Temp Pulse Resp BP Pulse Ox 98.8 F 63 18 162/64 H 97 03/03/17 07:43 03/03/17 09:29 03/03/17 09:29 03/03/17 09:29 03/03/17 09:29 - Medications Medications: Current Medications Acetaminophen (Tylenol 325mg Tab) 650 mg PO Q6 PRN PRN Reason: Pain, Mild (1-3) Aspirin (Aspirin Chewable) 81 mg PO DAILY [facility] Last Admin: 03/03/17 09:31 Dose: 81 mg Enoxaparin Sodium (Lovenox) 40 mg SC DAILY [facility] PRN Reason: Protocol Last Admin: 03/03/17 09:31 Dose: 40 mg Vancomycin HCl 1 gm/ Sodium (Chloride) 250 mls @ 166.667 mls/hr IVPB Q12 [facility] Last Admin: 03/02/17 22:00 Dose: 166.667 mls/hr Piperacillin Sod/Tazobactam (Sod 3.375 gm/ Sodium Chloride) 100 mls @ 100 mls/ hr IVPB Q8 [facility] Last Admin: 03/03/17 09:35 Dose: 100 mls/hr Insulin Human Lispro (Humalog) 0 units SC ACHS [facility] PRN Reason: Protocol Last Admin: 03/03/17 09:29 Dose: Not Given Metformin HCl (Glucophage) 500 mg PO BID [facility] Last Admin: 03/03/17 09:31 Dose: 500 mg Morphine Sulfate (Morphine) 1 mg IVP Q3 PRN PRN Reason: Pain, moderate (4-7) Morphine Sulfate (Morphine) 2 mg IVP Q3 PRN PRN Reason: Pain, severe (8-10) Last Admin: 03/03/17 07:57 Dose: 2 mg Nicotine (Nicoderm Cq) 1 patch TD DAILY [facility] Last Admin: 03/03/17 09:32 Dose: 1 patch Trazodone HCl (Desyrel) 50 mg PO HS [facility] Last Admin: 03/02/17 22:16 Dose: 50 mg - Labs Labs: 03/03/17 06:40 03/03/17 06:40 - Constitutional Appears: Well, Non-toxic, No Acute Distress - Extremities Exam Additional comments: LE focused exam: VASC: DP/PT pulses are palpable 1/4 on the right, MANAGER WIND: > 3 sec to non- gangrenous digits, TG: cool to cool from proximal to distal, +1 pitting edema noted on the dorsum of the right foot DERM: Distal tip of right hallux as well as 4th digit is necrotic with no active drainage, no malodor and appears dry, on the medial aspect of the 4th digit, very minimal serous drainage on the medial aspect of the 4th digit in the interspace with distal medial tip maceration, no probe to bone, no undermining, no tunneling. No cellulitic changes noted at this time NEURO: Protective sensation mildly diminished ORTHO: Pain on palpation of the distal tip of the 1st and 4th digit on the right , left BKA - Neurological Exam Neurological Exam: Alert, Awake, Oriented x3 - Psychiatric Exam Psychiatric exam: Normal Affect, Normal Mood Assessment and Plan - Assessment and Plan (Free Text) Assessment: 61 y/o male seen at bedside for 1st and 4th digit dry gangrene with cellulitis Plan: Patient evaluated and chart reviewed Patient discussed in detail with attending Dr. Joyce Labs and vitals reviewed; WBC 6.6 Dressing applied using betadine, DSD IV abx as per ID Cultures from toe: Staph aureus, coagulase negative staph R foot xray: No evidence of OM Awaiting read on LE duplex scan No plan for surgical intervention at this time Podiatry to follow patient while patient is in house
--- NOTE | 2017-03-03 10:14 | CP.PCM.PN ---
Subjective - Date & Time of Evaluation Date of Evaluation: 03/03/17 Time of Evaluation: 09:00 - Subjective Subjective: Continue to complain pain to the foot 8/10 despite pain medication PRN. Denies fever or chills. Arterial Duplex done and waiting for the result. Objective - Vital Signs/Intake and Output Vital Signs (last 24 hours): Temp Pulse Resp BP Pulse Ox 98.8 F 63 18 162/64 H 97 03/03/17 07:43 03/03/17 09:29 03/03/17 09:29 03/03/17 09:29 03/03/17 09:29 - Medications Medications: Current Medications Acetaminophen (Tylenol 325mg Tab) 650 mg PO Q6 PRN PRN Reason: Pain, Mild (1-3) Aspirin (Aspirin Chewable) 81 mg PO DAILY [facility] Last Admin: 03/03/17 09:31 Dose: 81 mg Atorvastatin Calcium (Lipitor) 20 mg PO DAILY [facility] Enoxaparin Sodium (Lovenox) 40 mg SC DAILY [facility] PRN Reason: Protocol Last Admin: 03/03/17 09:31 Dose: 40 mg Vancomycin HCl 1 gm/ Sodium (Chloride) 250 mls @ 166.667 mls/hr IVPB Q12 [facility] Last Admin: 03/02/17 22:00 Dose: 166.667 mls/hr Piperacillin Sod/Tazobactam (Sod 3.375 gm/ Sodium Chloride) 100 mls @ 100 mls/ hr IVPB Q8 [facility] Last Admin: 03/03/17 09:35 Dose: 100 mls/hr Insulin Human Lispro (Humalog) 0 units SC ACHS [facility] PRN Reason: Protocol Last Admin: 03/03/17 09:29 Dose: Not Given Metformin HCl (Glucophage) 500 mg PO BID [facility] Last Admin: 03/03/17 09:31 Dose: 500 mg Morphine Sulfate (Morphine) 1 mg IVP Q3 PRN PRN Reason: Pain, moderate (4-7) Morphine Sulfate (Morphine) 2 mg IVP Q3 PRN PRN Reason: Pain, severe (8-10) Last Admin: 03/03/17 07:57 Dose: 2 mg Nicotine (Nicoderm Cq) 1 patch TD DAILY [facility] Last Admin: 03/03/17 09:32 Dose: 1 patch Trazodone HCl (Desyrel) 50 mg PO HS [facility] Last Admin: 03/02/17 22:16 Dose: 50 mg - Labs Labs: 03/03/17 06:40 03/03/17 06:40 - Constitutional Appears: Well - Head Exam Head Exam: ATRAUMATIC, NORMAL INSPECTION, NORMOCEPHALIC - Eye Exam Eye Exam: EOMI, Normal appearance, PERRL Pupil Exam: NORMAL ACCOMODATION, PERRL - ENT Exam ENT Exam: Mucous Membranes Moist, Normal Exam - Neck Exam Neck Exam: Full ROM, Normal Inspection. absent: Lymphadenopathy - Respiratory Exam Respiratory Exam: Clear to Ausculation Bilateral, NORMAL BREATHING PATTERN - Cardiovascular Exam Cardiovascular Exam: REGULAR RHYTHM, +S1, +S2. absent: Murmur - GI/Abdominal Exam GI & Abdominal Exam: Soft, Normal Bowel Sounds. absent: Tenderness - Extremities Exam Extremities Exam: absent: Joint Swelling, Pedal Edema Additional comments: Distal tip of right Hallux as well as 4th digit is necrotic with no active drainage, no malodor and appears dry, on the medial aspect of the 4th digit, very minimal serous/purulent drainage on the medial aspect of the 4th digit in the inter-space with distal medial tip maceration, dorsal digits appears to be erythematous, no probe to bone, no undermining, no tunneling -Left BKA - Back Exam Back Exam: NORMAL INSPECTION - Neurological Exam Neurological Exam: Alert, Awake, CN II-XII Intact, Oriented x3 - Psychiatric Exam Psychiatric exam: Normal Affect, Normal Mood Assessment and Plan (1) Diabetic foot infection Assessment & Plan: OM, Gangrene of the Right 1st and 4th Toes IVF IV Vancomycin/Zosyn Pain Medication PRN Insole Channeler on board Status: Acute Priority: Medium (2) COPD (chronic obstructive pulmonary disease) Assessment and Plan: Duoneb Q6 PRN Status: Chronic Priority: Low (3) DM2 (diabetes mellitus, type 2) Assessment and Plan: Accu-check with Low coverage HgA1C- 7.4 Status: Chronic Priority: Low (4) PVD (peripheral vascular disease) Status: Chronic Priority: Low ASA Add Lipitor Quit smoking B/L LE arterial Duplex (5) Tobacco abuse Counselled to Quit smoking Status: Acute
--- NOTE | 2017-03-03 11:19 | US ---
PROCEDURE: Duplex ultrasound of the right lower extremity arteries. HISTORY: right leg diabetic ulcer COMPARISON: None available. TECHNIQUE: Grayscale and duplex Doppler evaluation of the right common femoral, superficial femoral, popliteal, posterior tibial and dorsalis pedis arteries was performed.. FINDINGS: COMMON FEMORAL ARTERY: Patent demonstrate moderate atherosclerotic disease. The artery demonstrate biphasic waveform. Maximal flow velocity of 121.3 cm/s. SUPERFICIAL FEMORAL ARTERY:The proximal portion of the right superficial femoral artery is patent demonstrate monophasic waveform and peak systolic velocity of 97.1 centimeter/second . The patient is status post graft to the popliteal artery. The mid and distal [place] superficial femoral artery is occluded. The graft is patent. POPLITEAL ARTERY:Patent demonstrate monophasic waveform. Maximal flow velocity of 164 cm/s. POSTERIOR TIBIAL ARTERY: Patent. Maximal flow velocity of 88.1 cm/s. DORSALIS PEDIS ARTERY: Was not visualized. OTHER FINDINGS: None. IMPRESSION: Moderate atherosclerotic disease. Status post graft in between the femoral artery and the popliteal artery. The graft is patent. Occluded mid and distal [place] superficial femoral artery.
--- NOTE | 2017-03-03 11:42 | CP.PCM.PN ---
Subjective - Date & Time of Evaluation Date of Evaluation: 03/03/17 Time of Evaluation: 08:00 - Subjective Subjective: admitted with severe necrotizing infection right first and fourth toes associated with pain and swelling of foot Started on empiric IV rx Objective - Vital Signs/Intake and Output Vital Signs (last 24 hours): Temp Pulse Resp BP Pulse Ox 98.8 F 63 18 162/64 H 97 03/03/17 07:43 03/03/17 09:29 03/03/17 09:29 03/03/17 09:29 03/03/17 09:29 - Medications Medications: Current Medications Acetaminophen (Tylenol 325mg Tab) 650 mg PO Q6 PRN PRN Reason: Pain, Mild (1-3) Aspirin (Aspirin Chewable) 81 mg PO DAILY [facility] Last Admin: 03/03/17 09:31 Dose: 81 mg Atorvastatin Calcium (Lipitor) 20 mg PO DAILY [facility] Enoxaparin Sodium (Lovenox) 40 mg SC DAILY [facility] PRN Reason: Protocol Last Admin: 03/03/17 09:31 Dose: 40 mg Vancomycin HCl 1 gm/ Sodium (Chloride) 250 mls @ 166.667 mls/hr IVPB Q12 [facility] Last Admin: 03/03/17 11:17 Dose: 166.667 mls/hr Piperacillin Sod/Tazobactam (Sod 3.375 gm/ Sodium Chloride) 100 mls @ 100 mls/ hr IVPB Q8 [facility] Last Admin: 03/03/17 09:35 Dose: 100 mls/hr Insulin Human Lispro (Humalog) 0 units SC ACHS [facility] PRN Reason: Protocol Last Admin: 03/03/17 09:29 Dose: Not Given Metformin HCl (Glucophage) 500 mg PO BID [facility] Last Admin: 03/03/17 09:31 Dose: 500 mg Morphine Sulfate (Morphine) 1 mg IVP Q3 PRN PRN Reason: Pain, moderate (4-7) Morphine Sulfate (Morphine) 2 mg IVP Q3 PRN PRN Reason: Pain, severe (8-10) Last Admin: 03/03/17 07:57 Dose: 2 mg Nicotine (Nicoderm Cq) 1 patch TD DAILY [facility] Last Admin: 03/03/17 09:32 Dose: 1 patch Trazodone HCl (Desyrel) 50 mg PO HS [facility] Last Admin: 03/02/17 22:16 Dose: 50 mg - Labs Labs: 03/03/17 06:40 03/03/17 06:40 - Constitutional Appears: Non-toxic, Chronically Ill - Head Exam Head Exam: NORMOCEPHALIC - Eye Exam Eye Exam: PERRL - ENT Exam ENT Exam: Mucous Membranes Dry - Neck Exam Neck Exam: absent: Lymphadenopathy - Respiratory Exam Respiratory Exam: Decreased Breath Sounds - Cardiovascular Exam Cardiovascular Exam: REGULAR RHYTHM - GI/Abdominal Exam GI & Abdominal Exam: Distended, Soft - Rectal Exam Rectal Exam: Deferred Assessment and Plan - Assessment and Plan (Free Text) Plan: admitted with severe necrotizing infection right first and fourth toes associated with pain and swelling of foot Started on empiric IV rx cont iv antibiotics and wound care
[2017-03-03] MEDS: Sodium Chloride 0.45% 1,000 ML IV SCH (13:30)
[2017-03-03] MEDS ORDERED: Sodium Chloride 0.9% 50 ML IV ONE (14:25)
[2017-03-03] MEDS ORDERED: Iodixanol 320 MG/ML 100 ML BOTTLE IV ONE (14:25)
--- NOTE | 2017-03-03 16:43 | CT ---
PROCEDURE: CT Angiography Abdomen, Pelvis and Lower Extremity with Contrast HISTORY: PVD COMPARISON: Right lower extremity arterial Doppler 03/01/2017 TECHNIQUE: Technique: CT angiography of the abdomen, pelvis and bilateral lower extremities performed in the arterial phase of enhancement. Coronal and sagittal reformats, and well as rotating MIP images of the vessels generated at the workstation. Intravenous contrast dose: Visipaque 320, 100 cc Radiation dose: Total exam DLP = 1541 mGy-cm. This CT exam was performed using one or more of the following dose reduction techniques: Automated exposure control, adjustment of the mA and/or kV according to patient size, and/or use of iterative reconstruction technique. FINDINGS: CT ANGIOGRAPHY: ABDOMINAL AORTA:: The abdominal aorta is patent through its bifurcation with moderate atherosclerosis related but without significant stenosis or aneurysm development. MAJOR AORTIC BRANCHES: Celiac [place]: Unremarkable. Superior mesenteric artery: Unremarkable. Inferior mesenteric artery: Unremarkable. Renal arteries: Unremarkable. PELVIC ARTERIES: Right Common Iliac: Mildly atherosclerotic but without significant stenosis. Patent from origin to bifurcation. Right External Iliac: Appears mildly atherosclerotic but without significant stenosis and patent from margin through its bifurcation. Right Internal Iliac: Occluded at its proximal and mid segments with limited distal reconstitution. Left Common Iliac: Mildly atherosclerotic but also without significant stenosis. It appears patent from origin to bifurcation. Left External Iliac: Unremarkable. Left Internal Iliac: Moderately atherosclerotic with occlusion noted distally. RIGHT LOWER EXTREMITY ARTERIES: Right Common Femoral: Mildly stenosis proximally with the proximal anastomosis of the femoral popliteal graft appearing unremarkable. The graft appears patent to its distal anastomosis at the popliteal artery. Right Superficial Femoral: Occluded at the proximal to mid segments up to the proximal portion of the distal segment. There is likely an element of reflux from the popliteal artery into the distal right SFA. Collateralized flow is possible here is well. Right Profunda Femoris: Unremarkable. Right Popliteal:Patent without significant stenosis. Opacification is via femoral popliteal graft and potentially secondarily by collateralized distal SFA flow. Right Anterior Tibial: Unremarkable. Right Tibioperoneal Trunk: A moderate to high-grade stenosis at the proximal and mid segments is noted with the remainder patent to the bifurcation. Right Posterior Tibial: A moderate or severe stenosis likely at its origin though it appears patent to the ankle. Right Peroneal: A moderate stenosis is noted proximally just distal to the origin with limited mid and distal arterial disease. It appears patent to the ankle. Right dorsalis pedis : Unremarkable. LEFT LOWER EXTREMITY ARTERIES: Left Common Femoral: Mildly atherosclerotic and widely patent. Left Superficial Femoral: Occluded throughout. Left Profunda Femoris: Unremarkable. Left Popliteal: Occluded. Patient status post [id number] amputation. A left femoral popliteal bypass graft is occluded from proximal to distal anastomosis. NON-ANGIOGRAPHIC ASPECT OF THE EXAM: LOWER THORAX: Partially calcific fibrosis is seen at the left lower lobe base with some thickening at the distal esophagus also noted. Clinically correlate. LIVER: Unremarkable. No gross lesion or ductal dilatation. GALLBLADDER AND BILE DUCTS: Unremarkable. PANCREAS: Unremarkable. No gross lesion or ductal dilatation. SPLEEN: Unremarkable. ADRENALS: Unremarkable. No mass. KIDNEYS AND URETERS: No hydronephrosis. No solid mass. Nonspecific perinephric streaky changes seen bilaterally. STOMACH AND BOWEL: Stomach is distended with retained food. Dominates the stomach and bowel is limited by lack of oral contrast, however, no bowel obstruction is appreciated. There is moderate fecal loading throughout the colon. APPENDIX: Normal appendix. PERITONEUM: Unremarkable. No free fluid. No free air. LYMPH NODES: Unremarkable. No enlarged lymph nodes. BLADDER: Unremarkable. REPRODUCTIVE: Unremarkable. BONES: No acute fracture. OTHER FINDINGS: None. IMPRESSION: 1. Right lower extremity femoral popliteal bypass graft is widely patent from proximal distal anastomosis with the right SFA remaining occluded from its origin to the proximal portion of the distal 3rd. Primary runoff to the foot is by the anterior tibial artery with moderate disease seen at the perineal and posterior tibial arteries which appear patent to the ankle nevertheless. 2. Prior below the knee amputation with occluded left femoral popliteal bypass graft and left SFA.
--- NOTE | 2017-03-03 17:33 | CP.PCM.CON ---
History of Present Illness - History of Present Illness History of Present Illness: I was asked to see patient by Dr Oneal. Patient is a 61 year old male with PMH HTN, PAD, s/p L BKA, s/p R fem pop bypass who presents with gangrene of the great toe of the R foot. Patient has noted changes to the foot for the last 2 weeks. He has had pain of the R foot . The patient presents for further evaluation. Review of Systems - Constitutional Constitutional: absent: As Per HPI, Anorexia, Chills, Daytime Sleepiness, Excessive Sweating, Fatigue, Fever, Frequent Falls, Headache, Increased Appetite , Lethargy, Malaise, Night Sweats, Snoring, Sleep Apnea, Weight Gain, Weight Loss, Weakness, Other - EENT Eyes: absent: As Per HPI, Blind Spots, Blurred Vision, Change in Vision, Decreased Night Vision, Diplopia, Discharge, Dry Eye, Exophthalmos, Floaters, Irritation, Itchy Eyes, Loss of Peripheral Vision, Pain, Photophobia, Requires Corrective Lenses, Sees Flashes, Spots in Vision, Tunnel Vision, Other Visual Disturbances, Loss of Vision, Other Ears: absent: As Per HPI, Decreased Hearing, Ear Discharge, Ear Pain, Tinnitus, Abnormal Hearing, Disequilibrium, Dizziness, Other Nose/Mouth/Throat: absent: As Per HPI, Epistaxis, Nasal Congestion, Nasal Discharge, Nasal Obstruction, Nasal Trauma, Nose Pain, Post Nasal Drip, Sinus Pain, Sinus Pressure, Bleeding Gums, Change in Voice, Dental Pain, Dry Mouth, Dysphagia, Halitosis, Hoarsness, Lip Swelling, Mouth Lesions, Mouth Pain, Odynophagia, Sore Throat, Throat Swelling, Tongue Swelling, Facial Pain, Neck Pain, Neck Mass, Other - Cardiovascular Cardiovascular: Radiating Pain - Respiratory Respiratory: absent: As Per HPI, Cough, Dyspnea, Hemoptysis, Dyspnea on Exertion , Wheezing, Snoring, Stridor, Pain on Inspiration, Chest Congestion, Excessive Mucous Production, Change in Mucous Color, Pain with Coughing, Other - Gastrointestinal Gastrointestinal: absent: As Per HPI, Abdominal Pain, Belching, Bloating, Change in Bowel Habits, Change in Stool Character, Coffee Ground Emesis, Constipation, Cramping, Diarrhea, Dyspepsia, Dysphagia, Early Satiety, Excessive Flatus, Fecal Incontinence, Heartburn, Hematemesis, Hematochezia, Loose Stools, Melena, Nausea, Odynophagia, Temesmus, Vomiting, Other - Genitourinary Genitourinary: absent: As Per HPI, Change in Urinary Stream, Difficulty Urinating, Dysuria, Flank Pain, Hematuria, Pyuria, Nocturia, Urinary Incontinence, Urinary Frequency, Urinary Hesitance, Urinary Urgency, Voiding Freq/Small Amts, Freq UTI, Hx Renal/Bladder Calculi, Hx /Renal Surgery, Bladder Distension, Other - Musculoskeletal Musculoskeletal: Radiating Pain into Limb - Integumentary Integumentary: Skin Ulcer - Neurological Neurological: absent: As Per HPI, Abnormal Gait, Abnormal Hearing, Abnormal Movements, Abnormal Speech, Behavioral Changes, Burning Sensations, Confusion, Convulsions, Disequilibrium, Dizziness, Numbness, Focal Weakness, Frequent Falls , Headaches, Lack of Coordination, Loss of Vision, Memory Loss, Paresthesias, Radicular Pain, Restless Legs, Sensory Deficit, Syncope, Tingling, Tremor, Vertigo, Weakness, Other Visual Disturbances, Other - Psychiatric Psychiatric: absent: As Per HPI, Abnormal Sleep Pattern, Anhedonia, Anxiety, Auditory Hallucinations, Behavioral Changes, Change in Appetite, Change in Libido, Confusion, Depression, Difficulty Concentrating, Hallucinations, Homicidal Ideation, Hopelessness, Irritability, Memory Loss, Mood Swings, Panic Attacks, Paranoia, Suicidal Ideation, Visual Hallucinations, Tactile Hallucinations, Other - Endocrine Endocrine: absent: As Per HPI, Change in Body Appearance, Change in Libido, Cold Intolorance, Deepening of Voice, Excessive Sweating, Fatigue, Flushing, Heat Intolorance, Increase in Ring/Shoe/Hat Size, Palpitations, Polydipsia, Polyphagia, Polyuria, Other - Hematologic/Lymphatic Hematologic: absent: As Per HPI, Easy Bleeding, Easy Bruising, Lymphadenopathy, Other Past Patient History - Infectious Disease Hx of Infectious Diseases: None - Tetanus Immunizations Tetanus Immunization: Up to Date (07/2014) - Past Medical History & Family History Past Medical History?: Yes Past Family History: Reviewed and not pertinent - Past Social History Smoking Status: Heavy Smoker > 10 Cigarettes Daily Alcohol: None Drugs: Cannabis - CARDIAC Hx Cardiac Disorders: Yes (CABG, HTN, HIGH CHOLESTEROL) Hx Hypercholesterolemia: Yes Hx Hypertension: Yes Other/Comment: Cardiac stress test 06/20. ABG-3 vessels - PULMONARY Hx Respiratory Disorders: Yes Other/Comment: smokes 1 pack per day - NEUROLOGICAL Hx Neurological Disorder: No Hx Alzheimer's Disease: No - HEENT Hx HEENT Problems: No - RENAL Hx Chronic Kidney Disease: No - ENDOCRINE/METABOLIC Hx Endocrine Disorders: Yes (DM) Hx Diabetes Mellitus Type 2: Yes - HEMATOLOGICAL/ONCOLOGICAL Hx Blood Disorders: Yes (ANEMIA) Hx AIDS: No Hx Anemia: Yes Hx Cancer: Yes (PROSTATE) Hx Hepatitis C: Yes Hx Human Immunodeficiency Virus (HIV): No - INTEGUMENTARY Hx Dermatological Problems: Yes (SKIN DISCOLORATION) Other/Comment: l bka,rt 3RD,4TH TOES AND grt TOE - MUSCULOSKELETAL/RHEUMATOLOGICAL Hx Musculoskeletal Disorders: Yes (degenerative disorder) Hx Falls: Yes Hx Osteomyelitis: Yes - GASTROINTESTINAL Hx Gastrointestinal Disorders: No - GENITOURINARY/GYNECOLOGICAL Hx Genitourinary Disorders: Yes (Prostate CA) Hx Prostate Cancer: Yes Hx Prostate Problems: Yes - PSYCHIATRIC Hx Psychophysiologic Disorder: Yes (anxiety) Hx Anxiety: Yes Hx Substance Use: Yes - SURGICAL HISTORY Hx Surgeries: Yes Hx Amputation: Yes (LBKA) Hx Coronary Artery Bypass Graft: Yes (x 3) Hx Femoral-Popliteal Bypass Graft: Yes - ANESTHESIA Hx Anesthesia: Yes Hx Anesthesia Reactions: No Hx Malignant Hyperthermia: No Has any member of the family had a problem w/ anesthesia?: No Meds Allergies/Adverse Reactions: Allergies Allergy/AdvReac Type Severity Reaction Status Date / Time No Known Allergies Allergy Verified 02/28/17 10:00 - Medications Medications: Current Medications Acetaminophen (Tylenol 325mg Tab) 650 mg PO Q6 PRN PRN Reason: Pain, Mild (1-3) Aspirin (Aspirin Chewable) 81 mg PO DAILY [facility] Last Admin: 03/03/17 09:31 Dose: 81 mg Atorvastatin Calcium (Lipitor) 20 mg PO DAILY [facility] Enoxaparin Sodium (Lovenox) 40 mg SC DAILY [facility] PRN Reason: Protocol Last Admin: 03/03/17 09:31 Dose: 40 mg Vancomycin HCl 1 gm/ Sodium (Chloride) 250 mls @ 166.667 mls/hr IVPB Q12 [facility] Last Admin: 03/03/17 11:17 Dose: 166.667 mls/hr Piperacillin Sod/Tazobactam (Sod 3.375 gm/ Sodium Chloride) 100 mls @ 100 mls/ hr IVPB Q8 [facility] Last Admin: 03/03/17 16:17 Dose: 100 mls/hr Sodium Chloride (Sodium Chloride 0.45%) 1,000 mls @ 60 mls/hr IV .[id number] COUNT [facility]CLUDES [facility] Stop: 03/04/17 11:55 Last Admin: 03/03/17 13:30 Dose: Not Given Insulin Human Lispro (Humalog) 0 units SC ACHS [facility] PRN Reason: Protocol Last Admin: 03/03/17 13:29 Dose: 1 units Metformin HCl (Glucophage) 500 mg PO BID [facility] Last Admin: 03/03/17 16:17 Dose: 500 mg Morphine Sulfate (Morphine) 1 mg IVP Q3 PRN PRN Reason: Pain, moderate (4-7) Morphine Sulfate (Morphine) 2 mg IVP Q3 PRN PRN Reason: Pain, severe (8-10) Last Admin: 03/03/17 16:16 Dose: 2 mg Nicotine (Nicoderm Cq) 1 patch TD DAILY [facility] Last Admin: 03/03/17 09:32 Dose: 1 patch Trazodone HCl (Desyrel) 50 mg PO HS [facility] Last Admin: 03/02/17 22:16 Dose: 50 mg Physical Exam - Constitutional Appears: Non-toxic - Head Exam Head Exam: NORMAL INSPECTION - Eye Exam Eye Exam: Normal appearance - ENT Exam ENT Exam: Mucous Membranes Moist - Neck Exam Neck exam: Positive for: Normal Inspection - Respiratory Exam Respiratory Exam: NORMAL BREATHING PATTERN - Cardiovascular Exam Cardiovascular Exam: REGULAR RHYTHM - GI/Abdominal Exam GI & Abdominal Exam: Normal Bowel Sounds - Rectal Exam Rectal Exam: Deferred - Extremities Exam Additional comments: L BKA - Back Exam Back exam: NORMAL INSPECTION - Neurological Exam Neurological exam: Alert - Skin Skin Exam: Normal Color Results - Vital Signs Recent Vital Signs: Last Vital Signs Temp 98.4 F 03/03/17 16:11 Pulse 60 03/03/17 16:11 Resp 20 03/03/17 16:11 BP 150/65 03/03/17 16:11 Pulse Ox 99 03/03/17 16:11 - Labs Result Diagrams: 03/03/17 06:40 03/03/17 06:40 Labs: Laboratory Results - last 24 hr 03/02/17 03/03/17 03/03/17 21:24 06:18 06:40 WBC 6.6 RBC 3.63 L Hgb 10.7 L Hct 31.9 L MCV 88.0 MCH 29.6 MCHC 33.6 RDW 13.7 Plt Count 259 MPV 8.7 Neut % (Auto) 57.0 Lymph % (Auto) 23.9 [place] % (Auto) 9.6 Eos % (Auto) 8.3 H Baso % (Auto) 1.2 Neut # 3.8 Lymph # 1.6 [place] # 0.6 Eos # 0.6 Baso # 0.1 Sodium Potassium Chloride Carbon Dioxide Anion Gap BUN Creatinine Est GFR ( Amer) Est GFR (Non-Af Amer) POC Glucose (mg/dL) 122 H 91 Random Glucose Calcium 03/03/17 03/03/17 06:40 11:03 WBC RBC Hgb Hct MCV MCH MCHC RDW Plt Count MPV Neut % (Auto) Lymph % (Auto) [place] % (Auto) Eos % (Auto) Baso % (Auto) Neut # Lymph # [place] # Eos # Baso # Sodium 138 Potassium 4.9 Chloride 107 Carbon Dioxide 22 Anion Gap 13 BUN 21 H Creatinine 1.0 Est GFR ( Amer) > 60 Est GFR (Non-Af Amer) > 60 POC Glucose (mg/dL) 192 H Random Glucose 98 Calcium 9.0 Assessment & Plan (1) Gangrene Assessment and Plan: recommend CT angiogram to assess graft patency and distal perfusion. Status: Acute (2) CAD (coronary artery disease) Assessment and Plan: antiplatelet therapy Status: Chronic (3) HTN (hypertension) Assessment and Plan: blood pressure control Status: Chronic Priority: Medium
[2017-03-04] MEDS: Piperacillin/Tazobact 3.375 GM in Sodium Chloride 0.9% 100 ML IVPB SCH ×3 (01:48→16:35)
[2017-03-04] MEDS: Sodium Chloride 0.45% 1,000 ML IV SCH (06:26)
[2017-03-04] MEDS: Insulin Lispro (humaLOG) 100 Units/ml Inj SC SCH ×4 (07:57→22:40)
[2017-03-04] MEDS: Enoxaparin 40 mg Syringe SC SCH (07:59)
--- NOTE | 2017-03-04 09:04 | CP.PCM.PN ---
Subjective - Date & Time of Evaluation Date of Evaluation: 03/04/17 Time of Evaluation: 08:01 - Subjective Subjective: Podiatry note for Dr. Joyce 61 y/o male seen at bedside this morning for necrotic distal tip of the 1st and 4th digit on the right foot. Patient is AAOx3 and is in NAD. Patient appears to be resting comfortably in bed. Patient states that he has pain in his digits when touched but states that he is managing it well. Patient denies of any other pedal complains. Patient denies of any F/N/V/C/SOB/CP. Objective - Vital Signs/Intake and Output Vital Signs (last 24 hours): Temp Pulse Resp BP Pulse Ox 97.6 F 59 L 20 143/77 98 03/04/17 07:38 03/04/17 07:38 03/04/17 07:38 03/04/17 07:38 03/04/17 07:38 - Medications Medications: Current Medications Acetaminophen (Tylenol 325mg Tab) 650 mg PO Q6 PRN PRN Reason: Pain, Mild (1-3) Aspirin (Aspirin Chewable) 81 mg PO DAILY [facility] Last Admin: 03/04/17 07:59 Dose: 81 mg Atorvastatin Calcium (Lipitor) 20 mg PO DAILY [facility] Last Admin: 03/04/17 07:59 Dose: 20 mg Enoxaparin Sodium (Lovenox) 40 mg SC DAILY [facility] PRN Reason: Protocol Last Admin: 03/04/17 07:59 Dose: 40 mg Vancomycin HCl 1 gm/ Sodium (Chloride) 250 mls @ 166.667 mls/hr IVPB Q12 [facility] Last Admin: 03/04/17 08:00 Dose: 166.667 mls/hr Piperacillin Sod/Tazobactam (Sod 3.375 gm/ Sodium Chloride) 100 mls @ 100 mls/ hr IVPB Q8 [facility] Last Admin: 03/04/17 07:59 Dose: 100 mls/hr Sodium Chloride (Sodium Chloride 0.45%) 1,000 mls @ 60 mls/hr IV .[id number] COUNT [facility]CLUDES [facility] Stop: 03/04/17 11:55 Last Admin: 03/04/17 06:26 Dose: Not Given Insulin Human Lispro (Humalog) 0 units SC ACHS [facility] PRN Reason: Protocol Last Admin: 03/04/17 07:57 Dose: Not Given Metformin HCl (Glucophage) 500 mg PO BID COUNT [facility] Last Admin: 03/04/17 07:59 Dose: 500 mg Morphine Sulfate (Morphine) 1 mg IVP Q3 PRN PRN Reason: Pain, moderate (4-7) Morphine Sulfate (Morphine) 2 mg IVP Q3 PRN PRN Reason: Pain, severe (8-10) Last Admin: 03/04/17 07:55 Dose: 2 mg Nicotine (Nicoderm Cq) 1 patch TD DAILY [facility] Last Admin: 03/04/17 07:59 Dose: 1 patch Trazodone HCl (Desyrel) 50 mg PO HS COUNT [facility] Last Admin: 03/03/17 22:06 Dose: 50 mg - Labs Labs: 03/03/17 06:40 03/03/17 06:40 - Constitutional Appears: Well, Non-toxic, No Acute Distress - Extremities Exam Additional comments: LE focused exam: VASC: DP/PT pulses are palpable 1/4 on the right, [employer]: > 3 sec to non- gangrenous digits, TG: cool to cool from proximal to distal, +1 pitting edema noted on the dorsum of the right foot DERM: Distal tip of right hallux as well as 4th digit is necrotic with no active drainage, no malodor and appears dry, on the medial aspect of the 4th digit, very minimal serous drainage on the medial aspect of the 4th digit in the interspace with distal medial tip maceration, no probe to bone, no undermining, no tunneling. No cellulitic changes noted at this time NEURO: Protective sensation mildly diminished ORTHO: Pain on palpation of the distal tip of the 1st and 4th digit on the right , left BKA - Neurological Exam Neurological Exam: Alert, Awake, Oriented x3 - Psychiatric Exam Psychiatric exam: Normal Affect, Normal Mood Assessment and Plan - Assessment and Plan (Free Text) Assessment: 61 y/o male seen at bedside for 1st and 4th digit dry gangrene with cellulitis Plan: Patient evaluated and chart reviewed Patient discussed in detail with attending Dr. Joyce Labs and vitals reviewed Dressing applied using betadine, DSD IV abx as per ID Cultures from toe: Staph aureus, coagulase negative staph R foot xray: No evidence of OM Abdominal angio: Moderate disease of PT and peroneal arteries LE arterial duplex: Moderate atherosclerotic, occluded mid and distal [place] SFA No plan for surgical intervention at this time Podiatry to follow patient while patient is in house
--- NOTE | 2017-03-04 12:43 | CP.PCM.PN ---
Subjective - Date & Time of Evaluation Date of Evaluation: 03/04/17 Time of Evaluation: 09:00 - Subjective Subjective: c/o pain cont iv rx Objective - Vital Signs/Intake and Output Vital Signs (last 24 hours): Temp Pulse Resp BP Pulse Ox 97.6 F 59 L 20 143/77 98 03/04/17 07:38 03/04/17 07:38 03/04/17 07:38 03/04/17 07:38 03/04/17 07:38 - Medications Medications: Current Medications Acetaminophen (Tylenol 325mg Tab) 650 mg PO Q6 PRN PRN Reason: Pain, Mild (1-3) Aspirin (Aspirin Chewable) 81 mg PO DAILY [facility] Last Admin: 03/04/17 07:59 Dose: 81 mg Atorvastatin Calcium (Lipitor) 20 mg PO DAILY [facility] Last Admin: 03/04/17 07:59 Dose: 20 mg Enoxaparin Sodium (Lovenox) 40 mg SC DAILY [facility] PRN Reason: Protocol Last Admin: 03/04/17 07:59 Dose: 40 mg Vancomycin HCl 1 gm/ Sodium (Chloride) 250 mls @ 166.667 mls/hr IVPB Q12 [facility] Last Admin: 03/04/17 08:00 Dose: 166.667 mls/hr Piperacillin Sod/Tazobactam (Sod 3.375 gm/ Sodium Chloride) 100 mls @ 100 mls/ hr IVPB Q8 [facility] Last Admin: 03/04/17 07:59 Dose: 100 mls/hr Insulin Human Lispro (Humalog) 0 units SC ACHS [facility] PRN Reason: Protocol Last Admin: 03/04/17 11:30 Dose: Not Given Metformin HCl (Glucophage) 500 mg PO BID [facility] Last Admin: 03/04/17 07:59 Dose: 500 mg Morphine Sulfate (Morphine) 1 mg IVP Q3 PRN PRN Reason: Pain, moderate (4-7) Morphine Sulfate (Morphine) 2 mg IVP Q3 PRN PRN Reason: Pain, severe (8-10) Last Admin: 03/04/17 12:03 Dose: 2 mg Nicotine (Nicoderm Cq) 1 patch TD DAILY [facility] Last Admin: 03/04/17 07:59 Dose: 1 patch Trazodone HCl (Desyrel) 50 mg PO HS [facility] Last Admin: 03/03/17 22:06 Dose: 50 mg - Labs Labs: 08/29/17 06:40 03/03/17 06:40 - Constitutional Appears: Non-toxic, Chronically Ill - Head Exam Head Exam: NORMOCEPHALIC - Eye Exam Eye Exam: PERRL. absent: Scleral icterus - ENT Exam ENT Exam: Mucous Membranes Dry, Normal External Ear Exam - Neck Exam Neck Exam: absent: Lymphadenopathy - Respiratory Exam Respiratory Exam: Decreased Breath Sounds - Cardiovascular Exam Cardiovascular Exam: REGULAR RHYTHM - GI/Abdominal Exam GI & Abdominal Exam: Distended Assessment and Plan - Assessment and Plan (Free Text) Plan: OM right 1st and 4th toes cont iv rx
[2017-03-04 13:25] LABS: BLOOD UREA NITROGEN 18 mg/dl (9-20); CALCIUM 9.2 mg/dL (8.4-10.2); CARBON DIOXIDE 24 mmol/L (22-30); CHLORIDE 104 mmol/L (98-107); GFR AFRICAN-AMERICAN > 60; GLUCOSE,RANDOM 108 mg/dL (75-110); POTASSIUM 4.8 MMOL/L (3.6-5.0); SODIUM 137 mmol/l (132-148)
--- NOTE | 2017-03-04 17:54 | CP.PCM.PN ---
Subjective - Date & Time of Evaluation Date of Evaluation: 03/04/17 Time of Evaluation: 17:25 - Subjective Subjective: patient has no current pain. s/p CT angiogram Objective - Vital Signs/Intake and Output Vital Signs (last 24 hours): Temp Pulse Resp BP Pulse Ox 98.6 F 63 18 161/69 H 97 03/04/17 16:15 03/04/17 16:15 03/04/17 16:15 03/04/17 16:15 03/04/17 16:15 - Medications Medications: Current Medications Acetaminophen (Tylenol 325mg Tab) 650 mg PO Q6 PRN PRN Reason: Pain, Mild (1-3) Aspirin (Aspirin Chewable) 81 mg PO DAILY [facility] Last Admin: 03/04/17 07:59 Dose: 81 mg Atorvastatin Calcium (Lipitor) 20 mg PO DAILY [facility] Last Admin: 03/04/17 07:59 Dose: 20 mg Enoxaparin Sodium (Lovenox) 40 mg SC DAILY [facility] PRN Reason: Protocol Last Admin: 03/04/17 07:59 Dose: 40 mg Vancomycin HCl 1 gm/ Sodium (Chloride) 250 mls @ 166.667 mls/hr IVPB Q12 [facility] Last Admin: 03/04/17 08:00 Dose: 166.667 mls/hr Piperacillin Sod/Tazobactam (Sod 3.375 gm/ Sodium Chloride) 100 mls @ 100 mls/ hr IVPB Q8 [facility] Last Admin: 03/04/17 16:35 Dose: 100 mls/hr Insulin Human Lispro (Humalog) 0 units SC ACHS [facility] PRN Reason: Protocol Last Admin: 03/04/17 16:35 Dose: Not Given Metformin HCl (Glucophage) 500 mg PO BID [facility] Last Admin: 03/04/17 16:35 Dose: 500 mg Morphine Sulfate (Morphine) 1 mg IVP Q3 PRN PRN Reason: Pain, moderate (4-7) Morphine Sulfate (Morphine) 2 mg IVP Q3 PRN PRN Reason: Pain, severe (8-10) Last Admin: 03/04/17 15:14 Dose: 2 mg Nicotine (Nicoderm Cq) 1 patch TD DAILY [facility] Last Admin: 03/04/17 07:59 Dose: 1 patch Trazodone HCl (Desyrel) 50 mg PO HS [facility] Last Admin: 03/03/17 22:06 Dose: 50 mg - Labs Labs: 03/03/17 06:40 03/04/17 13:10 - Constitutional Appears: Non-toxic - Head Exam Head Exam: NORMAL INSPECTION - Eye Exam Eye Exam: Normal appearance - ENT Exam ENT Exam: Mucous Membranes Moist - Neck Exam Neck Exam: Full ROM - Respiratory Exam Respiratory Exam: Decreased Breath Sounds - Cardiovascular Exam Cardiovascular Exam: REGULAR RHYTHM - GI/Abdominal Exam GI & Abdominal Exam: Normal Bowel Sounds - Rectal Exam Rectal Exam: Deferred - Extremities Exam Additional comments: dry gangrene - Back Exam Back Exam: NORMAL INSPECTION - Neurological Exam Neurological Exam: Alert - Psychiatric Exam Psychiatric exam: Normal Affect - Skin Skin Exam: Normal Color Assessment and Plan (1) Gangrene Assessment & Plan: CT angiogram reviewed. There appears to be high grade stenosis of the tiboperoneal vessl. I recommend peripehral angiogram. patient may be a candidate for endovascular therapy. Status: Acute (2) CAD (coronary artery disease) Assessment & Plan: no current angina Status: Chronic (3) HTN (hypertension) Assessment & Plan: blood pressure is controlled Status: Chronic
--- NOTE | 2017-03-04 19:37 | CP.PCM.PN ---
Subjective - Date & Time of Evaluation Date of Evaluation: 03/04/17 Time of Evaluation: 18:50 - Subjective Subjective: Seen and examined at the bed side. C/O Pain to the Toes. S/P CT angiography with a good flow to the feet as per the CV specialist. Objective - Vital Signs/Intake and Output Vital Signs (last 24 hours): Temp Pulse Resp BP Pulse Ox 98.6 F 63 18 161/69 H 97 03/04/17 16:15 03/04/17 16:15 03/04/17 16:15 03/04/17 16:15 03/04/17 16:15 - Medications Medications: Current Medications Acetaminophen (Tylenol 325mg Tab) 650 mg PO Q6 PRN PRN Reason: Pain, Mild (1-3) Aspirin (Aspirin Chewable) 81 mg PO DAILY [facility] Last Admin: 03/04/17 07:59 Dose: 81 mg Atorvastatin Calcium (Lipitor) 20 mg PO DAILY [facility] Last Admin: 03/04/17 07:59 Dose: 20 mg Enoxaparin Sodium (Lovenox) 40 mg SC DAILY [facility] PRN Reason: Protocol Last Admin: 03/04/17 07:59 Dose: 40 mg Vancomycin HCl 1 gm/ Sodium (Chloride) 250 mls @ 166.667 mls/hr IVPB Q12 [facility] Last Admin: 03/04/17 08:00 Dose: 166.667 mls/hr Piperacillin Sod/Tazobactam (Sod 3.375 gm/ Sodium Chloride) 100 mls @ 100 mls/ hr IVPB Q8 [facility] Last Admin: 03/04/17 16:35 Dose: 100 mls/hr Insulin Human Lispro (Humalog) 0 units SC ACHS [facility] PRN Reason: Protocol Last Admin: 03/04/17 16:35 Dose: Not Given Metformin HCl (Glucophage) 500 mg PO BID [facility] Last Admin: 03/04/17 16:35 Dose: 500 mg Morphine Sulfate (Morphine) 1 mg IVP Q3 PRN PRN Reason: Pain, moderate (4-7) Morphine Sulfate (Morphine) 2 mg IVP Q3 PRN PRN Reason: Pain, severe (8-10) Last Admin: 03/04/17 15:14 Dose: 2 mg Nicotine (Nicoderm Cq) 1 patch TD DAILY [facility] Last Admin: 03/04/17 07:59 Dose: 1 patch Trazodone HCl (Desyrel) 50 mg PO HS [facility] Last Admin: 03/03/17 22:06 Dose: 50 mg - Labs Labs: 03/03/17 06:40 03/04/17 13:10 - Constitutional Appears: No Acute Distress - Head Exam Head Exam: ATRAUMATIC, NORMAL INSPECTION, NORMOCEPHALIC - Eye Exam Eye Exam: EOMI, Normal appearance, PERRL Pupil Exam: NORMAL ACCOMODATION, PERRL - ENT Exam ENT Exam: Mucous Membranes Moist, Normal Exam - Neck Exam Neck Exam: Full ROM, Normal Inspection. absent: Lymphadenopathy - Respiratory Exam Respiratory Exam: Clear to Ausculation Bilateral, NORMAL BREATHING PATTERN - Cardiovascular Exam Cardiovascular Exam: REGULAR RHYTHM, +S1, +S2. absent: Murmur - GI/Abdominal Exam GI & Abdominal Exam: Soft, Normal Bowel Sounds. absent: Tenderness - Extremities Exam Extremities Exam: Tenderness Additional comments: Distal tip of right Hallux as well as 4th digit is necrotic with no active drainage, no malodor and appears dry, on the medial aspect of the 4th digit, very minimal serous drainage on the medial aspect of the 4th digit in the interspace with distal medial tip maceration, no probe to bone, no undermining, no tunneling. No cellulitic changes noted at this time Left BKA - Back Exam Back Exam: NORMAL INSPECTION - Neurological Exam Neurological Exam: Abnormal Gait, Alert, Awake, CN II-XII Intact, Oriented x3, Reflexes Normal - Psychiatric Exam Psychiatric exam: Normal Affect, Normal Mood - Skin Skin Exam: Dry, Intact, Normal Color, Warm - Additional Findings Additional findings: Accession No. : [id number] Patient Name / ID : HERMINIA HERBERT / [id number] Exam Date : 03/03/2017 14:42:59 ( Approved ) Study Comment : Sex / Age : M / 61Y Creator : Gio Baez MD Dictator : Gio Baez MD Resident Care Director : Bog Worker : Gio Baez MD Approver2 : Report Date : 03/03/2017 16:38:08 My Comment : PROCEDURE: CT Angiography Abdomen, Pelvis and Lower Extremity with Contrast HISTORY: PVD COMPARISON: Right lower extremity arterial Doppler 03/01/2017 TECHNIQUE: Technique: CT angiography of the abdomen, pelvis and bilateral lower extremities performed in the arterial phase of enhancement. Coronal and sagittal reformats, and well as rotating MIP images of the vessels generated at the workstation. Intravenous contrast dose: Visipaque 320, 100 cc Radiation dose: Total exam DLP = 1541 mGy-cm. This CT exam was performed using one or more of the following dose reduction techniques: Automated exposure control, adjustment of the mA and/or kV according to patient size, and/or use of iterative reconstruction technique. FINDINGS: CT ANGIOGRAPHY: ABDOMINAL AORTA:: The abdominal aorta is patent through its bifurcation with moderate atherosclerosis related but without significant stenosis or aneurysm development. MAJOR AORTIC BRANCHES: Celiac [place]: Unremarkable. Superior mesenteric artery: Unremarkable. Inferior mesenteric artery: Unremarkable. Renal arteries: Unremarkable. PELVIC ARTERIES: Right Common Iliac: Mildly atherosclerotic but without significant stenosis. Patent from origin to bifurcation. Right External Iliac: Appears mildly atherosclerotic but without significant stenosis and patent from margin through its bifurcation. Right Internal Iliac: Occluded at its proximal and mid segments with limited distal reconstitution. Left Common Iliac: Mildly atherosclerotic but also without significant stenosis. It appears patent from origin to bifurcation. Left External Iliac: Unremarkable. Left Internal Iliac: Moderately atherosclerotic with occlusion noted distally. RIGHT LOWER EXTREMITY ARTERIES: Right Common Femoral: Mildly stenosis proximally with the proximal anastomosis of the femoral popliteal graft appearing unremarkable. The graft appears patent to its distal anastomosis at the popliteal artery. Right Superficial Femoral: Occluded at the proximal to mid segments up to the proximal portion of the distal segment. There is likely an element of reflux from the popliteal artery into the distal right SFA. Collateralized flow is possible here is well. Right Profunda Femoris: Unremarkable. Right Popliteal:Patent without significant stenosis. Opacification is via femoral popliteal graft and potentially secondarily by collateralized distal SFA flow. Right Anterior Tibial: Unremarkable. Right Tibioperoneal Trunk: A moderate to high-grade stenosis at the proximal and mid segments is noted with the remainder patent to the bifurcation. Right Posterior Tibial: A moderate or severe stenosis likely at its origin though it appears patent to the ankle. Right Peroneal: A moderate stenosis is noted proximally just distal to the origin with limited mid and distal arterial disease. It appears patent to the ankle. Right dorsalis pedis : Unremarkable. LEFT LOWER EXTREMITY ARTERIES: Left Common Femoral: Mildly atherosclerotic and widely patent. Left Superficial Femoral: Occluded throughout. Left Profunda Femoris: Unremarkable. Left Popliteal: Occluded. Patient status post [id number] amputation. A left femoral popliteal bypass graft is occluded from proximal to distal anastomosis. NON-ANGIOGRAPHIC ASPECT OF THE EXAM: LOWER THORAX: Partially calcific fibrosis is seen at the left lower lobe base with some thickening at the distal esophagus also noted. Clinically correlate. LIVER: Unremarkable. No gross lesion or ductal dilatation. GALLBLADDER AND BILE DUCTS: Unremarkable. PANCREAS: Unremarkable. No gross lesion or ductal dilatation. SPLEEN: Unremarkable. ADRENALS: Unremarkable. No mass. KIDNEYS AND URETERS: No hydronephrosis. No solid mass. Nonspecific perinephric streaky changes seen bilaterally. STOMACH AND BOWEL: Stomach is distended with retained food. Dominates the stomach and bowel is limited by lack of oral contrast, however, no bowel obstruction is appreciated. There is moderate fecal loading throughout the colon. APPENDIX: Normal appendix. PERITONEUM: Unremarkable. No free fluid. No free air. LYMPH NODES: Unremarkable. No enlarged lymph nodes. BLADDER: Unremarkable. REPRODUCTIVE: Unremarkable. BONES: No acute fracture. OTHER FINDINGS: None. IMPRESSION: 1. Right lower extremity femoral popliteal bypass graft is widely patent from proximal distal anastomosis with the right SFA remaining occluded from its origin to the proximal portion of the distal 3rd. Primary runoff to the foot is by the anterior tibial artery with moderate disease seen at the perineal and posterior tibial arteries which appear patent to the ankle nevertheless. 2. Prior below the knee amputation with occluded left femoral popliteal bypass graft and left SFA. 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 Status: Acute
[2017-03-05] MEDS: Piperacillin/Tazobact 3.375 GM in Sodium Chloride 0.9% 100 ML IVPB SCH ×3 (01:27→16:23)
[2017-03-05 06:17] LABS: HEMATOCRIT 34.7 % (35.0-51.0); MEAN CELL VOLUME 88.6 fl (80.0-94.0); MEAN CORPUSCULAR HEMOGLOBIN 29.2 pg (27.0-31.0); RED CELL DISTRIBUTION WIDTH 13.9 % (11.5-14.5); WHITE BLOOD COUNT 6.9 K/uL (4.8-10.8)
[2017-03-05 06:25] LABS: ALKALINE PHOSPHATASE 62 U/L (38-126); ALT/SGPT 23 U/L (21-72); AST/SGOT 18 U/L (17-59); BILIRUBIN,TOTAL 0.3 mg/dl (0.2-1.3); BLOOD UREA NITROGEN 21 mg/dl (9-20); CALCIUM 9.4 mg/dL (8.4-10.2); CARBON DIOXIDE 23 mmol/L (22-30); CHLORIDE 106 mmol/L (98-107); GFR AFRICAN-AMERICAN > 60; GLUCOSE,RANDOM 99 mg/dL (75-110); POTASSIUM 4.7 MMOL/L (3.6-5.0); SODIUM 137 mmol/l (132-148); TOTAL PROTEIN 7.2 G/DL (6.3-8.2)
[2017-03-05] MEDS: Insulin Lispro (humaLOG) 100 Units/ml Inj SC SCH ×4 (08:37→21:31)
--- NOTE | 2017-03-05 11:42 | CP.PCM.PN ---
Subjective - Date & Time of Evaluation Date of Evaluation: 03/05/17 Time of Evaluation: 11:40 - Subjective Subjective: Seen and examined at the side. C/O Right foot pain at the Gangrene site. No fever or chills. Objective - Vital Signs/Intake and Output Vital Signs (last 24 hours): Temp Pulse Resp BP Pulse Ox 98.5 F 55 L 19 152/72 H 96 03/05/17 00:32 03/05/17 00:32 03/05/17 00:32 03/05/17 00:32 03/05/17 00:32 - Medications Medications: Current Medications Acetaminophen (Tylenol 325mg Tab) 650 mg PO Q6 PRN PRN Reason: Pain, Mild (1-3) Aspirin (Aspirin Chewable) 81 mg PO DAILY [facility] Last Admin: 03/05/17 08:37 Dose: Not Given Atorvastatin Calcium (Lipitor) 20 mg PO DAILY [facility] Last Admin: 03/05/17 08:37 Dose: Not Given Enoxaparin Sodium (Lovenox) 40 mg SC DAILY [facility] PRN Reason: Protocol Last Admin: 03/04/17 07:59 Dose: 40 mg Vancomycin HCl 1 gm/ Sodium (Chloride) 250 mls @ 166.667 mls/hr IVPB Q12 [facility] Last Admin: 03/05/17 08:37 Dose: Not Given Piperacillin Sod/Tazobactam (Sod 3.375 gm/ Sodium Chloride) 100 mls @ 100 mls/ hr IVPB Q8 [facility] Last Admin: 03/05/17 08:37 Dose: Not Given Insulin Human Lispro (Humalog) 0 units SC ACHS [facility] PRN Reason: Protocol Last Admin: 03/05/17 08:37 Dose: Not Given Metformin HCl (Glucophage) 500 mg PO BID [facility] Last Admin: 03/05/17 08:37 Dose: Not Given Morphine Sulfate (Morphine) 1 mg IVP Q3 PRN PRN Reason: Pain, moderate (4-7) Morphine Sulfate (Morphine) 2 mg IVP Q3 PRN PRN Reason: Pain, severe (8-10) Last Admin: 03/05/17 05:39 Dose: 2 mg Nicotine (Nicoderm Cq) 1 patch TD DAILY [facility] Last Admin: 03/05/17 08:37 Dose: Not Given Trazodone HCl (Desyrel) 50 mg PO HS [facility] Last Admin: 03/04/17 22:11 Dose: 50 mg - Labs Labs: 03/05/17 05:50 03/05/17 05:50 PT 11.4 Seconds (9.8-13.1) 03/05/17 05:50 INR 1.1 (0.9-1.2) 03/05/17 05:50 APTT 30.0 Seconds (25.6-37.1) 03/05/17 05:50 - Constitutional Appears: No Acute Distress - Head Exam Head Exam: ATRAUMATIC, NORMAL INSPECTION, NORMOCEPHALIC - Eye Exam Eye Exam: EOMI, Normal appearance, PERRL Pupil Exam: NORMAL ACCOMODATION, PERRL - ENT Exam ENT Exam: Mucous Membranes Moist, Normal Exam - Neck Exam Neck Exam: Full ROM, Normal Inspection. absent: Lymphadenopathy - Respiratory Exam Respiratory Exam: Clear to Ausculation Bilateral, NORMAL BREATHING PATTERN - Cardiovascular Exam Cardiovascular Exam: REGULAR RHYTHM, +S1, +S2. absent: Murmur - GI/Abdominal Exam GI & Abdominal Exam: Soft, Normal Bowel Sounds. absent: Tenderness - Extremities Exam Additional comments: Distal tip of right Hallux as well as 4th digit is necrotic with no active drainage, no malodor and appears dry, on the medial aspect of the 4th digit, very minimal serous drainage on the medial aspect of the 4th digit in the interspace with distal medial tip maceration, no probe to bone, no undermining, no tunneling. 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 Status: Acute
--- NOTE | 2017-03-05 14:45 | CP.PCM.PN ---
Subjective - Date & Time of Evaluation Date of Evaluation: 03/05/17 Time of Evaluation: 14:43 - Subjective Subjective: Podiatry note for Dr. Joyce 61 y/o male seen at bedside this morning for necrotic distal tip of the 1st and 4th digit on the right foot. Patient is AAOx3 and is in NAD. Patient appears to be resting comfortably in bed. Patient states that he has pain in his digits when touched but states that he is managing it well. Patient also states that his peripheral angiogram with Dr. Arango that occurred this morning at [facility] went well. Patient denies of any other pedal complaints. Patient denies of any F/N/V/C/SOB/CP. Objective - Vital Signs/Intake and Output Vital Signs (last 24 hours): Temp Pulse Resp BP Pulse Ox 97.9 F 64 18 143/68 98 03/05/17 13:12 03/05/17 13:12 03/05/17 13:12 03/05/17 13:12 03/05/17 13:12 - Medications Medications: Current Medications Acetaminophen (Tylenol 325mg Tab) 650 mg PO Q6 PRN PRN Reason: Pain, Mild (1-3) Aspirin (Aspirin Chewable) 81 mg PO DAILY [facility] Last Admin: 03/05/17 08:37 Dose: Not Given Atorvastatin Calcium (Lipitor) 20 mg PO DAILY [facility] Last Admin: 03/05/17 08:37 Dose: Not Given Enoxaparin Sodium (Lovenox) 40 mg SC DAILY [facility] PRN Reason: Protocol Last Admin: 03/04/17 07:59 Dose: 40 mg Vancomycin HCl 1 gm/ Sodium (Chloride) 250 mls @ 166.667 mls/hr IVPB Q12 [facility] Last Admin: 03/05/17 08:37 Dose: Not Given Piperacillin Sod/Tazobactam (Sod 3.375 gm/ Sodium Chloride) 100 mls @ 100 mls/ hr IVPB Q8 [facility] Last Admin: 03/05/17 08:37 Dose: Not Given Insulin Human Lispro (Humalog) 0 units SC ACHS [facility] PRN Reason: Protocol Last Admin: 03/05/17 11:45 Dose: Not Given Metformin HCl (Glucophage) 500 mg PO BID [facility] Last Admin: 03/05/17 08:37 Dose: Not Given Morphine Sulfate (Morphine) 1 mg IVP Q3 PRN PRN Reason: Pain, moderate (4-7) Morphine Sulfate (Morphine) 2 mg IVP Q3 PRN PRN Reason: Pain, severe (8-10) Last Admin: 03/05/17 13:04 Dose: 2 mg Nicotine (Nicoderm Cq) 1 patch TD DAILY [facility] Last Admin: 03/05/17 08:37 Dose: Not Given Trazodone HCl (Desyrel) 50 mg PO HS [facility] Last Admin: 03/04/17 22:11 Dose: 50 mg - Labs Labs: 03/05/17 05:50 03/05/17 05:50 PT 11.4 Seconds (9.8-13.1) 03/05/17 05:50 INR 1.1 (0.9-1.2) 03/05/17 05:50 APTT 30.0 Seconds (25.6-37.1) 03/05/17 05:50 - Constitutional Appears: Well, Non-toxic, No Acute Distress - Extremities Exam Additional comments: LE focused exam: VASC: DP/PT pulses are palpable 1/4 on the right, MIDDLE CARD TENDER: > 3 sec to non- gangrenous digits, TG: cool to cool from proximal to distal, +1 pitting edema noted on the dorsum of the right foot DERM: Distal tip of right hallux as well as 4th digit is necrotic with no active drainage, no malodor and appears dry, on the medial aspect of the 4th digit, very minimal serous drainage on the medial aspect of the 4th digit in the interspace with distal medial tip maceration, no probe to bone, no undermining, no tunneling. No cellulitic changes noted at this time NEURO: Protective sensation mildly diminished ORTHO: Pain on palpation of the distal tip of the 1st and 4th digit on the right , left BKA - Neurological Exam Neurological Exam: Alert, Awake, Oriented x3 - Psychiatric Exam Psychiatric exam: Normal Affect, Normal Mood Assessment and Plan - Assessment and Plan (Free Text) Assessment: 61 y/o male seen at bedside for 1st and 4th digit dry gangrene Plan: Patient evaluated and chart reviewed Patient discussed in detail with attending Dr. Joyce Labs and vitals reviewed Dressing applied using betadine, DSD IV abx as per ID Cultures from toe: Staph aureus, coagulase negative staph R foot xray: No evidence of OM Abdominal angio: Moderate disease of PT and peroneal arteries LE arterial duplex: Moderate atherosclerotic, occluded mid and distal tribal SFA Patient underwent peripheral angiogram with Dr. Arango at [facility] today; awaiting results No plan for surgical intervention at this time Podiatry to follow patient while patient is in house
[2017-03-05 15:32] LABS: RBC URINE 2 /hpf (0-3); URINE BILIRUBIN NEGATIVE (NEGATIVE); URINE BLOOD NEGATIVE (NEGATIVE); URINE COLOR STRAW (YELLOW); URINE GLUCOSE (UA) NEG (Normal); URINE KETONE NEGATIVE (NEGATIVE); URINE LEUKOCYTE ESTERASE TRACE Leu/uL (Negative); URINE PROTEIN NEGATIVE (NEGATIVE); URINE UROBILINOGEN 0.2-1.0 mg/dL (0.2-1.0); WBC URINE 4 /hpf (0-5)
[2017-03-06] MEDS: Piperacillin/Tazobact 3.375 GM in Sodium Chloride 0.9% 100 ML IVPB SCH ×2 (00:45→09:21)
[2017-03-06] MEDS: Insulin Lispro (humaLOG) 100 Units/ml Inj SC SCH ×3 (06:35→17:06)
--- NOTE | 2017-03-06 06:53 | CP.PCM.PN ---
Subjective - Date & Time of Evaluation Date of Evaluation: 03/06/17 Time of Evaluation: 06:53 - Subjective Subjective: Podiatry note for Dr. Joyce 61 y/o male seen at bedside this morning for necrotic distal tip of the 1st and 4th digit on the right foot. Patient is AAOx3 and is in NAD. Patient appears to be resting comfortably in bed. Patient states that he has pain in his digits when touched but states that he is managing it well. Pt went for peripheral angio procedure yesterday at [facility] and then says he returned here in the afternoon. Pt slept well overnight. Patient denies of any other pedal complaints. Patient denies of any F/N/V/C/SOB/CP. Objective - Vital Signs/Intake and Output Vital Signs (last 24 hours): Temp Pulse Resp BP Pulse Ox 98.8 F 55 L 20 156/54 H 98 03/06/17 01:26 03/06/17 01:26 03/06/17 01:26 03/06/17 01:26 03/06/17 01:26 - Medications Medications: Current Medications Acetaminophen (Tylenol 325mg Tab) 650 mg PO Q6 PRN PRN Reason: Pain, Mild (1-3) Aspirin (Aspirin Chewable) 81 mg PO DAILY [facility] Last Admin: 03/05/17 08:37 Dose: Not Given Atorvastatin Calcium (Lipitor) 20 mg PO DAILY [facility] Last Admin: 03/05/17 08:37 Dose: Not Given Enoxaparin Sodium (Lovenox) 40 mg SC DAILY [facility] PRN Reason: Protocol Last Admin: 03/04/17 07:59 Dose: 40 mg Piperacillin Sod/Tazobactam (Sod 3.375 gm/ Sodium Chloride) 100 mls @ 100 mls/ hr IVPB Q8 [facility] Last Admin: 03/06/17 00:45 Dose: 100 mls/hr Vancomycin HCl 1 gm/ Sodium (Chloride) 250 mls @ 166.667 mls/hr IVPB DAILY [facility] Insulin Human Lispro (Humalog) 0 units SC ACHS [facility] PRN Reason: Protocol Last Admin: 03/06/17 06:35 Dose: Not Given Metformin HCl (Glucophage) 500 mg PO BID [facility] Last Admin: 03/05/17 08:37 Dose: Not Given Morphine Sulfate (Morphine) 1 mg IVP Q3 PRN PRN Reason: Pain, moderate (4-7) Morphine Sulfate (Morphine) 2 mg IVP Q3 PRN PRN Reason: Pain, severe (8-10) Last Admin: 03/06/17 04:13 Dose: 2 mg Nicotine (Nicoderm Cq) 1 patch TD DAILY [facility] Last Admin: 03/05/17 08:37 Dose: Not Given Trazodone HCl (Desyrel) 50 mg PO HS [facility] Last Admin: 03/05/17 21:04 Dose: 50 mg - Labs Labs: 03/05/17 05:50 03/05/17 05:50 PT 11.4 Seconds (9.8-13.1) 03/05/17 05:50 INR 1.1 (0.9-1.2) 03/05/17 05:50 APTT 30.0 Seconds (25.6-37.1) 03/05/17 05:50 - Constitutional Appears: Well, Non-toxic, No Acute Distress - Extremities Exam Additional comments: RLE focused exam: VASC: DP/PT pulses are palpable 1/4, LUMBER SALVAGER: > 3 sec to non-gangrenous digits (1, 2 and 5), TGcool to cool from proximal to distal, +1 pitting edema noted on the dorsum of foot DERM: Distal tip of hallux as well as 4th digit is necrotic with no active drainage, no malodor and appears dry. On the medial aspect of the 4th digit, very minimal serous drainage noted in the interspace with distal medial tip maceration, no probe to bone, no undermining, no tunneling. No cellulitic changes noted at this time NEURO: Protective sensation mildly diminished ORTHO: Pain on palpation of the distal tip of the 1st and 4th digit. - Neurological Exam Neurological Exam: Alert, Awake, Oriented x3 - Psychiatric Exam Psychiatric exam: Normal Affect, Normal Mood Assessment and Plan - Assessment and Plan (Free Text) Assessment: 61 y/o male seen at bedside for 1st and 4th digit dry gangrene Plan: Patient evaluated and chart reviewed Patient discussed in detail with attending Dr. Joyce Chart, labs and vitals reviewed Dressing applied using betadine, DSD IV abx as per ID Cultures from toe: Staph aureus, coagulase negative staph R foot xray: No evidence of OM Abdominal angio: Moderate disease of PT and peroneal arteries LE arterial duplex: Moderate atherosclerotic, occluded mid and distal wales SFA Patient underwent peripheral angiogram with Dr. Keller [facility] yesterday; patient has good 3 vessel run off Podiatry to refrain from surgical intervention due to extensive patient history of noncompliance and risk of infection should he not follow up Patient is stable to D/C from podiatry standpoint and should follow up in [facility] as outpatient for dry gangrene of digits Podiatry to continue to follow patient while patient is in house
[2017-03-06] MEDS: Enoxaparin 40 mg Syringe SC SCH (09:19)
--- NOTE | 2017-03-06 11:51 | CP.PCM.PN ---
Subjective - Date & Time of Evaluation Date of Evaluation: 03/06/17 Time of Evaluation: 08:00 - Subjective Subjective: tolerating iv rx wound care in progress Objective - Vital Signs/Intake and Output Vital Signs (last 24 hours): Temp Pulse Resp BP Pulse Ox 97.4 F L 44 L 20 148/66 99 03/06/17 08:09 03/06/17 08:09 03/06/17 08:09 03/06/17 08:09 03/06/17 08:09 - Medications Medications: Current Medications Acetaminophen (Tylenol 325mg Tab) 650 mg PO Q6 PRN PRN Reason: Pain, Mild (1-3) Aspirin (Aspirin Chewable) 81 mg PO DAILY [facility] Last Admin: 03/06/17 09:20 Dose: 81 mg Atorvastatin Calcium (Lipitor) 20 mg PO DAILY [facility] Last Admin: 03/06/17 09:19 Dose: 20 mg Enoxaparin Sodium (Lovenox) 40 mg SC DAILY [facility] PRN Reason: Protocol Last Admin: 03/06/17 09:19 Dose: 40 mg Piperacillin Sod/Tazobactam (Sod 3.375 gm/ Sodium Chloride) 100 mls @ 100 mls/ hr IVPB Q8 [facility] Last Admin: 03/06/17 09:21 Dose: 100 mls/hr Vancomycin HCl 1 gm/ Sodium (Chloride) 250 mls @ 166.667 mls/hr IVPB DAILY [facility] Last Admin: 03/06/17 09:20 Dose: 166.667 mls/hr Insulin Human Lispro (Humalog) 0 units SC ACHS [facility] PRN Reason: Protocol Last Admin: 03/06/17 06:35 Dose: Not Given Metformin HCl (Glucophage) 500 mg PO BID [facility] Last Admin: 03/05/17 08:37 Dose: Not Given Morphine Sulfate (Morphine) 1 mg IVP Q3 PRN PRN Reason: Pain, moderate (4-7) Morphine Sulfate (Morphine) 2 mg IVP Q3 PRN PRN Reason: Pain, severe (8-10) Last Admin: 03/06/17 11:24 Dose: 2 mg Nicotine (Nicoderm Cq) 1 patch TD DAILY [facility] Last Admin: 03/06/17 09:19 Dose: 1 patch Trazodone HCl (Desyrel) 50 mg PO HS [facility] Last Admin: 03/05/17 21:04 Dose: 50 mg - Labs Labs: 03/05/17 05:50 03/05/17 05:50 PT 11.4 Seconds (9.8-13.1) 03/05/17 05:50 INR 1.1 (0.9-1.2) 03/05/17 05:50 APTT 30.0 Seconds (25.6-37.1) 03/05/17 05:50 - Constitutional Appears: Non-toxic, Chronically Ill - Head Exam Head Exam: NORMOCEPHALIC - Eye Exam Eye Exam: PERRL. absent: Scleral icterus - ENT Exam ENT Exam: Mucous Membranes Dry, Normal External Ear Exam - Neck Exam Neck Exam: absent: Lymphadenopathy - Respiratory Exam Respiratory Exam: Decreased Breath Sounds - Cardiovascular Exam Cardiovascular Exam: REGULAR RHYTHM - GI/Abdominal Exam GI & Abdominal Exam: Distended, Soft - Rectal Exam Rectal Exam: Deferred - Exam Exam: NORMAL INSPECTION - Extremities Exam Extremities Exam: absent: Pedal Edema - Back Exam Back Exam: absent: CVA tenderness (L), CVA tenderness (R) - Neurological Exam Neurological Exam: Alert, Awake, Oriented x3 Assessment and Plan - Assessment and Plan (Free Text) Plan: cont iv rx for om pain mangement
[2017-03-06] MEDS: Cefepime 1 GM in Sodium Chloride 0.9% 100 ML IVPB SCH (15:30)
--- NOTE | 2017-03-06 23:46 | CP.PCM.PN ---
Subjective - Date & Time of Evaluation Date of Evaluation: 03/06/17 Time of Evaluation: 19:05 - Subjective Subjective: No New complaint Objective - Vital Signs/Intake and Output Vital Signs (last 24 hours): Temp Pulse Resp BP Pulse Ox 98.1 F 60 18 119/54 L 100 03/06/17 16:59 03/06/17 16:59 03/06/17 16:59 03/06/17 16:59 03/06/17 16:59 - Medications Medications: Current Medications Acetaminophen (Tylenol 325mg Tab) 650 mg PO Q6 PRN PRN Reason: Pain, Mild (1-3) Aspirin (Aspirin Chewable) 81 mg PO DAILY [facility] Last Admin: 03/06/17 09:20 Dose: 81 mg Atorvastatin Calcium (Lipitor) 20 mg PO DAILY [facility] Last Admin: 03/06/17 09:19 Dose: 20 mg Enoxaparin Sodium (Lovenox) 40 mg SC DAILY [facility] PRN Reason: Protocol Last Admin: 03/06/17 09:19 Dose: 40 mg Vancomycin HCl 1 gm/ Sodium (Chloride) 250 mls @ 166.667 mls/hr IVPB DAILY [facility] Last Admin: 03/06/17 09:20 Dose: 166.667 mls/hr Cefepime HCl 1 gm/ Sodium (Chloride) 100 mls @ 100 mls/hr IVPB DAILY [facility] Last Admin: 03/06/17 15:30 Dose: 100 mls/hr Insulin Human Lispro (Humalog) 0 units SC ACHS [facility] PRN Reason: Protocol Last Admin: 03/06/17 17:06 Dose: Not Given Metformin HCl (Glucophage) 500 mg PO BID [facility] Last Admin: 03/05/17 08:37 Dose: Not Given Morphine Sulfate (Morphine) 1 mg IVP Q3 PRN PRN Reason: Pain, moderate (4-7) Morphine Sulfate (Morphine) 2 mg IVP Q3 PRN PRN Reason: Pain, severe (8-10) Last Admin: 03/06/17 23:29 Dose: 2 mg Nicotine (Nicoderm Cq) 1 patch TD DAILY [facility] Last Admin: 03/06/17 09:19 Dose: 1 patch Trazodone HCl (Desyrel) 50 mg PO [facility] Last Admin: 03/06/17 21:38 Dose: 50 mg - Labs Labs: 03/05/17 05:50 03/05/17 05:50 PT 11.4 Seconds (9.8-13.1) 03/05/17 05:50 INR 1.1 (0.9-1.2) 03/05/17 05:50 APTT 30.0 Seconds (25.6-37.1) 03/05/17 05:50 - Constitutional Appears: No Acute Distress - Head Exam Head Exam: ATRAUMATIC, NORMAL INSPECTION, NORMOCEPHALIC - Eye Exam Eye Exam: EOMI, PERRL - ENT Exam ENT Exam: Mucous Membranes Moist - Neck Exam Neck Exam: Full ROM, Normal Inspection - Respiratory Exam Respiratory Exam: Clear to Ausculation Bilateral - Cardiovascular Exam Cardiovascular Exam: REGULAR RHYTHM, +S1, +S2 - GI/Abdominal Exam GI & Abdominal Exam: Soft, Normal Bowel Sounds - Extremities Exam Additional comments: Distal tip of right Hallux as well as 4th digit is necrotic with no active drainage, no malodor and appears dry, on the medial aspect of the 4th digit, very minimal serous drainage on the medial aspect of the 4th digit in the interspace with distal medial tip maceration, no probe to bone, no undermining, no tunneling. No cellulitic changes noted at this time Left BKA - Back Exam Back Exam: NORMAL INSPECTION. absent: CVA tenderness (L), CVA tenderness (R) - Neurological Exam Neurological Exam: Alert, Awake, CN II-XII Intact - Psychiatric Exam Psychiatric exam: Normal Affect, Normal Mood - Skin Skin Exam: Dry, Intact, Normal Color Assessment and Plan (1) Diabetic foot infection Assessment & Plan: PVD Acute OM with Gangrenous Right Toes Continue Wound Care daily, and IV Vancomycin and Cefepime Continue ASA and Statin Bar Host on Board for Possible Amputation ID and Cardiovascular on board. Status: Acute
[2017-03-07] MEDS: Insulin Lispro (humaLOG) 100 Units/ml Inj SC SCH ×4 (01:26→16:34)
[2017-03-07] MEDS: Enoxaparin 40 mg Syringe SC SCH ×2 (09:43→09:49)
[2017-03-07] MEDS: Cefepime 1 GM in Sodium Chloride 0.9% 100 ML IVPB SCH (09:44)
--- NOTE | 2017-03-07 15:39 | CP.PCM.PN ---
Subjective - Date & Time of Evaluation Date of Evaluation: 03/07/17 Time of Evaluation: 15:25 - Subjective Subjective: Seen and examined at the bed side. The paint on the foot is 8-10/10 pain despite Morphine 2mg IV 3hrs PRN. Denies fever or chills. I have spoken the Cardiovascular MD who did CT Angiogram stated that the patient's foot has good flow to the foot, and recommended Toe amputation by the Energy Scheduler. Awaiting Energy Scheduler final decision. Also will switch patient's medication from Morphine to Dilaudid for better pain control. Objective - Vital Signs/Intake and Output Vital Signs (last 24 hours): Temp Pulse Resp BP Pulse Ox 98.1 F 56 L 20 172/72 H 99 03/07/17 07:39 03/07/17 07:39 03/07/17 07:39 03/07/17 07:39 03/07/17 07:39 - Medications Medications: Current Medications Acetaminophen (Tylenol 325mg Tab) 650 mg PO Q6 PRN PRN Reason: Pain, Mild (1-3) Aspirin (Aspirin Chewable) 81 mg PO DAILY [facility] Last Admin: 03/07/17 09:43 Dose: 81 mg Atorvastatin Calcium (Lipitor) 20 mg PO DAILY [facility] Last Admin: 03/07/17 12:42 Dose: 20 mg Enoxaparin Sodium (Lovenox) 40 mg SC DAILY [facility] PRN Reason: Protocol Last Admin: 03/07/17 09:49 Dose: Not Given Vancomycin HCl 1 gm/ Sodium (Chloride) 250 mls @ 166.667 mls/hr IVPB DAILY [facility] Last Admin: 03/07/17 11:00 Dose: 166.667 mls/hr Cefepime HCl 1 gm/ Sodium (Chloride) 100 mls @ 100 mls/hr IVPB DAILY [facility] Last Admin: 03/07/17 09:44 Dose: 100 mls/hr Insulin Human Lispro (Humalog) 0 units SC ACHS [facility] PRN Reason: Protocol Last Admin: 03/07/17 11:06 Dose: 1 units Metformin HCl (Glucophage) 500 mg PO BID [facility] Last Admin: 03/05/17 08:37 Dose: Not Given Morphine Sulfate (Morphine) 1 mg IVP Q3 PRN PRN Reason: Pain, moderate (4-7) Morphine Sulfate (Morphine) 2 mg IVP Q3 PRN PRN Reason: Pain, severe (8-10) Last Admin: 03/07/17 15:33 Dose: 2 mg Nicotine (Nicoderm Cq) 1 patch TD DAILY [facility] Last Admin: 03/07/17 09:44 Dose: 1 patch Trazodone HCl (Desyrel) 50 mg PO HS [facility] Last Admin: 03/06/17 21:38 Dose: 50 mg - Labs Labs: 03/05/17 05:50 03/05/17 05:50 PT 11.4 Seconds (9.8-13.1) 03/05/17 05:50 INR 1.1 (0.9-1.2) 03/05/17 05:50 APTT 30.0 Seconds (25.6-37.1) 03/05/17 05:50 - Constitutional Appears: No Acute Distress - Head Exam Head Exam: ATRAUMATIC, NORMAL INSPECTION, NORMOCEPHALIC - Eye Exam Eye Exam: EOMI, Normal appearance - ENT Exam ENT Exam: Mucous Membranes Moist, Normal Exam - Neck Exam Neck Exam: Full ROM, Normal Inspection - Respiratory Exam Respiratory Exam: Decreased Breath Sounds, Clear to Ausculation Bilateral. absent: Rales - Cardiovascular Exam Cardiovascular Exam: REGULAR RHYTHM, +S1, +S2 - GI/Abdominal Exam GI & Abdominal Exam: Soft, Normal Bowel Sounds. absent: Tenderness - Extremities Exam Extremities Exam: Full ROM, Normal Capillary Refill, Normal Inspection. absent : Calf Tenderness Additional comments: Distal tip of right Hallux as well as 4th digit is necrotic with no active drainage, no malodor and appears dry, on the medial aspect of the 4th digit, very minimal serous drainage on the medial aspect of the 4th digit in the interspace with distal medial tip maceration, no probe to bone, no undermining, no tunneling. No cellulitic changes noted at this time Left BKA - Back Exam Back Exam: NORMAL INSPECTION. absent: CVA tenderness (L), CVA tenderness (R) - Neurological Exam Neurological Exam: Alert, Awake - Psychiatric Exam Psychiatric exam: Normal Affect, Normal Mood - Skin Skin Exam: Dry, Intact, Normal Color, Warm Assessment and Plan (1) Diabetic foot infection Assessment & Plan: PVD Acute OM with Gangrenous Right Toes Continue Wound Care daily, and IV Vancomycin and Cefepime Continue ASA and Statin Energy Scheduler on Board for Possible Amputation ID and Cardiovascular on board MRI of the Right foot to further Confirm OM. Status: Acute
--- NOTE | 2017-03-07 16:15 | CP.PCM.PN ---
Subjective - Date & Time of Evaluation Date of Evaluation: 03/07/17 Time of Evaluation: 16:00 - Subjective Subjective: Podiatry Progress Note - Dr. Joyce 61 y/o male patient seen at bedside for necrotic distal tip of the 1st and 4th digit on the right foot. Patient is seen resting comfortbly, AAOx3 and NAD. Patient denies any acute events overnight. Patient reports continued pain 8/10 to both digits, 4th hurting more than the 1st digit. Patient is aware he is to follow up with Dr. Joyce in [facility] clinic once discharged. Patient denies N/V/F /D/C/SOB/calf pain. No other pedal complaints at this time. Objective - Vital Signs/Intake and Output Vital Signs (last 24 hours): Temp Pulse Resp BP Pulse Ox 98.1 F 56 L 20 172/72 H 99 03/07/17 07:39 03/07/17 07:39 03/07/17 07:39 03/07/17 07:39 03/07/17 07:39 - Medications Medications: Current Medications Acetaminophen (Tylenol 325mg Tab) 650 mg PO Q6 PRN PRN Reason: Pain, Mild (1-3) Aspirin (Aspirin Chewable) 81 mg PO DAILY [facility] Last Admin: 03/07/17 09:43 Dose: 81 mg Atorvastatin Calcium (Lipitor) 20 mg PO DAILY [facility] Last Admin: 03/07/17 12:42 Dose: 20 mg Enoxaparin Sodium (Lovenox) 40 mg SC DAILY [facility] PRN Reason: Protocol Last Admin: 03/07/17 09:49 Dose: Not Given Vancomycin HCl 1 gm/ Sodium (Chloride) 250 mls @ 166.667 mls/hr IVPB DAILY [facility] Last Admin: 03/07/17 11:00 Dose: 166.667 mls/hr Cefepime HCl 1 gm/ Sodium (Chloride) 100 mls @ 100 mls/hr IVPB DAILY [facility] Last Admin: 03/07/17 09:44 Dose: 100 mls/hr Insulin Human Lispro (Humalog) 0 units SC ACHS [facility] PRN Reason: Protocol Last Admin: 03/07/17 11:06 Dose: 1 units Metformin HCl (Glucophage) 500 mg PO BID [facility] Last Admin: 03/05/17 08:37 Dose: Not Given Morphine Sulfate (Morphine) 1 mg IVP Q3 PRN PRN Reason: Pain, moderate (4-7) Morphine Sulfate (Morphine) 2 mg IVP Q3 PRN PRN Reason: Pain, severe (8-10) Last Admin: 03/07/17 15:33 Dose: 2 mg Nicotine (Nicoderm Cq) 1 patch TD DAILY [facility] Last Admin: 03/07/17 09:44 Dose: 1 patch Trazodone HCl (Desyrel) 50 mg PO HS [facility] Last Admin: 03/06/17 21:38 Dose: 50 mg - Labs Labs: 03/05/17 05:50 03/05/17 05:50 PT 11.4 Seconds (9.8-13.1) 03/05/17 05:50 INR 1.1 (0.9-1.2) 03/05/17 05:50 APTT 30.0 Seconds (25.6-37.1) 03/05/17 05:50 - Constitutional Appears: Well, Non-toxic, No Acute Distress - Extremities Exam Additional comments: RLE focused exam: VASC: DP/PT pulses are palpable 1/4, ERP IMPLEMENTATION CONSULTANT: > 3 sec to non-gangrenous digits (1, 2 and 5), TGcool to cool from proximal to distal, +1 pitting edema noted on the dorsum of foot DERM: Distal tip of hallux as well as 4th digit is necrotic with no active drainage, no malodor and appears dry. No serous drainage or maceration noted to medial aspect of 4th digit at this visit. NEURO: Protective sensation mildly diminished ORTHO: Pain on palpation of the distal tip of the 1st and 4th digit. - Neurological Exam Neurological Exam: Alert, Awake, Oriented x3 - Psychiatric Exam Psychiatric exam: Normal Affect, Normal Mood Assessment and Plan - Assessment and Plan (Free Text) Assessment: 61 y/o male seen at bedside for 1st and 4th digit dry gangrene Plan: Patient seen and evaluated at bedside Discussed with attending, Dr. Joyce Chart, vitals, labs reviewed = afebrile Betadine applied to right foot and dressed with 4x4s and kerlix Podiatry to refrain from surgical intervention due to extensive patient history of noncompliance and risk of infection should he not follow up Patient is stable to D/C from podiatry standpoint and should follow up in [facility] clinic as outpatient for dry gangrene of digits F/U medicine recommendations for discharge Podiatry to continue to follow patient while patient is in house
[2017-03-08] MEDS: Insulin Lispro (humaLOG) 100 Units/ml Inj SC SCH ×5 (01:11→22:38)
[2017-03-08 08:23] LABS: HEMATOCRIT 34.2 % (35.0-51.0); MEAN CELL VOLUME 88.4 fl (80.0-94.0); MEAN CORPUSCULAR HEMOGLOBIN 29.5 pg (27.0-31.0); MEAN CORPUSCULAR HGB CONC 33.4 g/dL (33.0-37.0); RED CELL DISTRIBUTION WIDTH 14.3 % (11.5-14.5)
[2017-03-08 08:25] LABS: ALB/GLOB RATIO 1.2 (1.0-2.1); ALKALINE PHOSPHATASE 62 U/L (38-126); ALT/SGPT 29 U/L (21-72); AST/SGOT 17 U/L (17-59); BILIRUBIN,TOTAL 0.4 mg/dl (0.2-1.3); BLOOD UREA NITROGEN 22 mg/dl (9-20); CALCIUM 9.5 mg/dL (8.4-10.2); CARBON DIOXIDE 23 mmol/L (22-30); GFR AFRICAN-AMERICAN > 60; GLUCOSE,RANDOM 102 mg/dL (75-110); POTASSIUM 4.9 MMOL/L (3.6-5.0); SODIUM 138 mmol/l (132-148); TOTAL PROTEIN 7.2 G/DL (6.3-8.2)
[2017-03-08 08:27] LABS: CHLORIDE 107 mmol/L (98-107)
[2017-03-08] MEDS: Cefepime 1 GM in Sodium Chloride 0.9% 100 ML IVPB SCH (08:40)
--- NOTE | 2017-03-08 09:26 | CP.PCM.PN ---
Subjective - Date & Time of Evaluation Date of Evaluation: 03/08/17 Time of Evaluation: 10:00 - Subjective Subjective: Podiatry Progress Note - Dr. Joyce 61 y/o male patient seen at bedside for necrotic distal tip of the 1st and 4th digit on the right foot. Patient is seen resting comfortbly, AAOx3 and NAD. Patient denies any acute events overnight; however, states he is unable to sleep properly secondary to pain in right foot. Patient reports continued pain 8 /10 to both digits, 4th hurting more than the 1st digit. Patient denies N/V/F/D/ C/SOB/calf pain. No other pedal complaints at this time. Objective - Vital Signs/Intake and Output Vital Signs (last 24 hours): Temp Pulse Resp BP Pulse Ox 98.1 F 58 L 18 160/77 H 99 03/08/17 07:35 03/08/17 07:35 03/08/17 07:35 03/08/17 07:35 03/08/17 07:35 - Medications Medications: Current Medications Acetaminophen (Tylenol 325mg Tab) 650 mg PO Q6 PRN PRN Reason: Pain, Mild (1-3) Aspirin (Aspirin Chewable) 81 mg PO DAILY [facility] Last Admin: 03/08/17 08:40 Dose: 81 mg Atorvastatin Calcium (Lipitor) 20 mg PO DAILY [facility] Last Admin: 03/08/17 08:40 Dose: 20 mg Enoxaparin Sodium (Lovenox) 40 mg SC DAILY [facility] PRN Reason: Protocol Last Admin: 03/07/17 09:49 Dose: Not Given Vancomycin HCl 1 gm/ Sodium (Chloride) 250 mls @ 166.667 mls/hr IVPB DAILY [facility] Last Admin: 03/08/17 08:41 Dose: 166.667 mls/hr Cefepime HCl 1 gm/ Sodium (Chloride) 100 mls @ 100 mls/hr IVPB DAILY [facility] Last Admin: 03/08/17 08:40 Dose: 100 mls/hr Insulin Human Lispro (Humalog) 0 units SC ACHS [facility] PRN Reason: Protocol Last Admin: 03/08/17 07:53 Dose: Not Given Metformin HCl (Glucophage) 500 mg PO BID [facility] Last Admin: 03/05/17 08:37 Dose: Not Given Morphine Sulfate (Morphine) 1 mg IVP Q3 PRN PRN Reason: Pain, moderate (4-7) Morphine Sulfate (Morphine) 2 mg IVP Q3 PRN PRN Reason: Pain, severe (8-10) Last Admin: 03/08/17 08:49 Dose: 2 mg Nicotine (Nicoderm Cq) 1 patch TD DAILY [facility] Last Admin: 03/08/17 08:39 Dose: 1 patch Trazodone HCl (Desyrel) 50 mg PO HS [facility] Last Admin: 03/07/17 21:09 Dose: 50 mg - Labs Labs: 03/08/17 08:05 03/08/17 08:05 PT 11.4 Seconds (9.8-13.1) 03/05/17 05:50 INR 1.1 (0.9-1.2) 03/05/17 05:50 APTT 30.0 Seconds (25.6-37.1) 03/05/17 05:50 - Constitutional Appears: Well, Non-toxic, No Acute Distress - Extremities Exam Additional comments: RLE focused exam: VASC: DP/PT pulses are palpable 1/4, WOOL WASHER FEEDER: > 3 sec to non-gangrenous digits (1, 2 and 5), TG warm to warm from proximal to distal, +1 pitting edema noted on the dorsum of foot DERM: Distal tip of hallux as well as 4th digit is necrotic with no active drainage, no malodor and appears dry. No serous drainage or maceration noted to medial aspect of 4th digit at this visit. NEURO: Protective sensation mildly diminished ORTHO: Pain on palpation of the distal tip of the 4th digit. No pain on palpation to hallux at today's visit. - Neurological Exam Neurological Exam: Alert, Awake, Oriented x3 - Psychiatric Exam Psychiatric exam: Normal Affect, Normal Mood Assessment and Plan - Assessment and Plan (Free Text) Assessment: 61 y/o male seen at bedside for 1st and 4th digit dry gangrene Plan: Patient seen and evaluated at bedside Discussed with attending, Dr. Joyce Chart, vitals, labs reviewed = afebrile, WBC WNL @ 7.0 Betadine applied to right foot and dressed with 4x4s and kerlix Continue abx per ID = Cefepime, Vancomycin F/U RLE MRI results r/o OM - will determine if need for sx F/U medicine recommendations for discharge home vs. TCU Podiatry to continue to follow patient while patient is in house
[2017-03-08] MEDS: Enoxaparin 40 mg Syringe SC SCH (09:49)
--- NOTE | 2017-03-08 12:55 | CP.PCM.PN ---
Subjective - Date & Time of Evaluation Date of Evaluation: 03/08/17 Time of Evaluation: 08:00 - Subjective Subjective: iv rx renewed c/o pain cleared for or by vascular will need amp Objective - Vital Signs/Intake and Output Vital Signs (last 24 hours): Temp Pulse Resp BP Pulse Ox 98.1 F 58 L 18 160/77 H 99 03/08/17 07:35 03/08/17 07:35 03/08/17 07:35 03/08/17 07:35 03/08/17 07:35 - Medications Medications: Current Medications Acetaminophen (Tylenol 325mg Tab) 650 mg PO Q6 PRN PRN Reason: Pain, Mild (1-3) Aspirin (Aspirin Chewable) 81 mg PO DAILY [facility] Last Admin: 03/08/17 08:40 Dose: 81 mg Atorvastatin Calcium (Lipitor) 20 mg PO DAILY [facility] Last Admin: 03/08/17 08:40 Dose: 20 mg Enoxaparin Sodium (Lovenox) 40 mg SC DAILY [facility] PRN Reason: Protocol Last Admin: 03/08/17 09:49 Dose: Not Given Hydromorphone HCl (Dilaudid) 2 mg IVP Q4 PRN PRN Reason: Pain, severe (8-10) Last Admin: 03/08/17 11:29 Dose: 2 mg Vancomycin HCl 1 gm/ Sodium (Chloride) 250 mls @ 166.667 mls/hr IVPB DAILY [facility] Last Admin: 03/08/17 08:41 Dose: 166.667 mls/hr Cefepime HCl 1 gm/ Sodium (Chloride) 100 mls @ 100 mls/hr IVPB DAILY [facility] Last Admin: 03/08/17 08:40 Dose: 100 mls/hr Insulin Human Lispro (Humalog) 0 units SC ACHS [facility] PRN Reason: Protocol Last Admin: 03/08/17 11:37 Dose: 2 units Metformin HCl (Glucophage) 500 mg PO BID [facility] Last Admin: 03/08/17 12:44 Dose: Not Given Morphine Sulfate (Morphine) 1 mg IVP Q3 PRN PRN Reason: Pain, moderate (4-7) Nicotine (Nicoderm Cq) 1 patch TD DAILY [facility] Last Admin: 03/08/17 08:39 Dose: 1 patch Trazodone HCl (Desyrel) 50 mg PO HS [facility] Last Admin: 03/07/17 21:09 Dose: 50 mg - Labs Labs: 03/08/17 08:05 03/08/17 08:05 PT 11.4 Seconds (9.8-13.1) 03/05/17 05:50 INR 1.1 (0.9-1.2) 03/05/17 05:50 APTT 30.0 Seconds (25.6-37.1) 03/05/17 05:50 - Constitutional Appears: Non-toxic, Chronically Ill - Head Exam Head Exam: NORMOCEPHALIC - Eye Exam Eye Exam: PERRL - ENT Exam ENT Exam: Mucous Membranes Dry - Neck Exam Neck Exam: absent: Lymphadenopathy - Respiratory Exam Respiratory Exam: Decreased Breath Sounds - Cardiovascular Exam Cardiovascular Exam: REGULAR RHYTHM - GI/Abdominal Exam GI & Abdominal Exam: Distended - Rectal Exam Rectal Exam: Deferred - Exam Exam: NORMAL INSPECTION Assessment and Plan - Assessment and Plan (Free Text) Plan: cont iv rx for OR and amp of digits
--- NOTE | 2017-03-08 23:51 | CP.PCM.PN ---
Subjective - Date & Time of Evaluation Date of Evaluation: 03/08/17 Time of Evaluation: 10:35 - Subjective Subjective: C/O Pain to the right foot which is relieved by pain Medications. Denies fever or chills.Retail Account Specialist waiting the MRI Result to decide whether to do Amputation as inpatient or outpatient. Objective - Vital Signs/Intake and Output Vital Signs (last 24 hours): Temp Pulse Resp BP Pulse Ox 98.9 F 52 L 20 160/80 H 98 03/08/17 16:24 03/08/17 16:24 03/08/17 16:24 03/08/17 16:24 03/08/17 16:24 - Medications Medications: Current Medications Acetaminophen (Tylenol 325mg Tab) 650 mg PO Q6 PRN PRN Reason: Pain, Mild (1-3) Aspirin (Aspirin Chewable) 81 mg PO DAILY [facility] Last Admin: 03/08/17 08:40 Dose: 81 mg Atorvastatin Calcium (Lipitor) 20 mg PO DAILY [facility] Last Admin: 03/08/17 08:40 Dose: 20 mg Enoxaparin Sodium (Lovenox) 40 mg SC DAILY [facility] PRN Reason: Protocol Last Admin: 03/08/17 09:49 Dose: Not Given Hydromorphone HCl (Dilaudid) 2 mg IVP Q4 PRN PRN Reason: Pain, severe (8-10) Last Admin: 03/08/17 19:44 Dose: 2 mg Vancomycin HCl 1 gm/ Sodium (Chloride) 250 mls @ 166.667 mls/hr IVPB DAILY [facility] Last Admin: 03/08/17 08:41 Dose: 166.667 mls/hr Cefepime HCl 1 gm/ Sodium (Chloride) 100 mls @ 100 mls/hr IVPB DAILY [facility] Last Admin: 03/08/17 08:40 Dose: 100 mls/hr Insulin Human Lispro (Humalog) 0 units SC ACHS [facility] PRN Reason: Protocol Last Admin: 03/08/17 22:38 Dose: Not Given Metformin HCl (Glucophage) 500 mg PO BID [facility] Last Admin: 03/08/17 16:13 Dose: 500 mg Morphine Sulfate (Morphine) 1 mg IVP Q3 PRN PRN Reason: Pain, moderate (4-7) Nicotine (Nicoderm Cq) 1 patch TD DAILY [facility] Last Admin: 03/08/17 08:39 Dose: 1 patch Trazodone HCl (Desyrel) 50 mg PO HS [facility] Last Admin: 03/08/17 21:52 Dose: 50 mg - Labs Labs: 03/08/17 08:05 03/08/17 08:05 PT 11.4 Seconds (9.8-13.1) 03/05/17 05:50 INR 1.1 (0.9-1.2) 03/05/17 05:50 APTT 30.0 Seconds (25.6-37.1) 03/05/17 05:50 - Constitutional Appears: Non-toxic, No Acute Distress - Head Exam Head Exam: ATRAUMATIC, NORMAL INSPECTION, NORMOCEPHALIC - Neck Exam Neck Exam: Full ROM, Normal Inspection - Respiratory Exam Respiratory Exam: Clear to Ausculation Bilateral, NORMAL BREATHING PATTERN. absent: Rales - Cardiovascular Exam Cardiovascular Exam: REGULAR RHYTHM, +S1, +S2 - GI/Abdominal Exam GI & Abdominal Exam: Soft, Normal Bowel Sounds. absent: Rigid, Tenderness - Extremities Exam Additional comments: Distal tip of right Hallux as well as 4th digit is necrotic with no active drainage, no malodor and appears dry, on the medial aspect of the 4th digit, very minimal serous drainage on the medial aspect of the 4th digit in the interspace with distal medial tip maceration, no probe to bone, no undermining, no tunneling. No cellulitic changes noted at this time Left BKA - Neurological Exam Neurological Exam: Alert, Awake, Oriented x3 - Psychiatric Exam Psychiatric exam: Normal Affect, Normal Mood - Skin Skin Exam: Dry, Intact, Normal Color Assessment and Plan (1) Diabetic foot infection Assessment & Plan: PVD Acute OM with Gangrenous Right Toes Continue Wound Care daily, and IV Vancomycin and Cefepime Continue ASA and Statin Retail Account Specialist on Board for Possible Amputation ID and Cardiovascular on board. Status: Acute
[2017-03-09] MEDS: Insulin Lispro (humaLOG) 100 Units/ml Inj SC SCH ×4 (06:31→22:27)
[2017-03-09 07:03] LABS: BLOOD UREA NITROGEN 27 mg/dl (9-20); CALCIUM 9.4 mg/dL (8.4-10.2); CARBON DIOXIDE 23 mmol/L (22-30); CHLORIDE 105 mmol/L (98-107); GFR AFRICAN-AMERICAN > 60; GLUCOSE,RANDOM 100 mg/dL (75-110); SODIUM 137 mmol/l (132-148)
[2017-03-09 07:05] LABS: POTASSIUM 4.5 MMOL/L (3.6-5.0)
[2017-03-09 07:45] LABS: BASO # 0.1 K/uL (0.0-0.2); BASO % 0.7 % (0.0-2.0); EOS # 0.6 K/uL (0.0-0.7); EOS % 6.4 % (0.0-4.0); HEMATOCRIT 33.9 % (35.0-51.0); LYMPH # 1.6 K/uL (1.0-4.3); LYMPH % 18.2 % (20.0-40.0); MEAN CELL VOLUME 89.1 fl (80.0-94.0); MEAN CORPUSCULAR HEMOGLOBIN 29.4 pg (27.0-31.0); MEAN PLATELET VOLUME 9.9 fl (7.2-11.7); MONO # 0.9 K/uL (0.0-0.8); MONO % 10.4 % (0.0-10.0); NEUT # 5.5 K/uL (1.8-7.0); NEUT % 64.3 % (50.0-75.0); NRBC % 0.1 % (0.0-0.0); WHITE BLOOD COUNT 8.6 K/uL (4.8-10.8)
[2017-03-09] MEDS: Cefepime 1 GM in Sodium Chloride 0.9% 100 ML IVPB SCH (08:22)
[2017-03-09] MEDS ORDERED: Gadodiamide 287 MG/ML VIAL (15ML) IV ONE (10:05)
--- NOTE | 2017-03-09 11:03 | CP.PCM.PN ---
Subjective - Date & Time of Evaluation Date of Evaluation: 03/09/17 Time of Evaluation: 10:30 - Subjective Subjective: Seen and examined at the bed side. Complaining of the right foot pain which is partially alleviated by pain medication. Objective - Vital Signs/Intake and Output Vital Signs (last 24 hours): Temp Pulse Resp BP Pulse Ox 98.7 F 50 L 20 103/48 L 99 03/09/17 07:21 03/09/17 07:21 03/09/17 07:21 03/09/17 07:21 03/09/17 07:21 - Medications Medications: Current Medications Acetaminophen (Tylenol 325mg Tab) 650 mg PO Q6 PRN PRN Reason: Pain, Mild (1-3) Aspirin (Aspirin Chewable) 81 mg PO DAILY [facility] Last Admin: 03/09/17 08:21 Dose: 81 mg Atorvastatin Calcium (Lipitor) 20 mg PO DAILY [facility] Last Admin: 03/09/17 08:20 Dose: 20 mg Hydromorphone HCl (Dilaudid) 2 mg IVP Q4 PRN PRN Reason: Pain, severe (8-10) Last Admin: 03/09/17 08:20 Dose: 2 mg Vancomycin HCl 1 gm/ Sodium (Chloride) 250 mls @ 166.667 mls/hr IVPB DAILY [facility] Last Admin: 03/09/17 08:27 Dose: 166.667 mls/hr Cefepime HCl 1 gm/ Sodium (Chloride) 100 mls @ 100 mls/hr IVPB DAILY [facility] Last Admin: 03/09/17 08:22 Dose: 100 mls/hr Insulin Human Lispro (Humalog) 0 units SC ACHS [facility] PRN Reason: Protocol Last Admin: 03/09/17 06:31 Dose: Not Given Metformin HCl (Glucophage) 500 mg PO BID [facility] Last Admin: 03/09/17 08:21 Dose: 500 mg Morphine Sulfate (Morphine) 1 mg IVP Q3 PRN PRN Reason: Pain, moderate (4-7) Nicotine (Nicoderm Cq) 1 patch TD DAILY [facility] Last Admin: 03/09/17 08:21 Dose: 1 patch Trazodone HCl (Desyrel) 50 mg PO HS [facility] Last Admin: 03/08/17 21:52 Dose: 50 mg - Labs Labs: 03/09/17 04:50 03/09/17 04:50 PT 11.4 Seconds (9.8-13.1) 03/05/17 05:50 INR 1.1 (0.9-1.2) 03/05/17 05:50 APTT 30.0 Seconds (25.6-37.1) 03/05/17 05:50 - Head Exam Head Exam: ATRAUMATIC, NORMAL INSPECTION, NORMOCEPHALIC - Eye Exam Eye Exam: EOMI, Normal appearance - ENT Exam ENT Exam: Mucous Membranes Moist, Normal Exam - Neck Exam Neck Exam: Full ROM, Normal Inspection - Respiratory Exam Respiratory Exam: Clear to Ausculation Bilateral, NORMAL BREATHING PATTERN - Cardiovascular Exam Cardiovascular Exam: REGULAR RHYTHM, +S1, +S2 - GI/Abdominal Exam GI & Abdominal Exam: Bruit, Distended, Firm, Soft, Normal Bowel Sounds - Extremities Exam Additional comments: Distal tip of right Hallux as well as 4th digit is necrotic with no active drainage, no malodor and appears dry, on the medial aspect of the 4th digit, very minimal serous drainage on the medial aspect of the 4th digit in the interspace with distal medial tip maceration, no probe to bone, no undermining, no tunneling. No cellulitic changes noted at this time Left BKA - Back Exam Back Exam: absent: CVA tenderness (L), CVA tenderness (R) - Additional Findings Additional findings: MRI right foot History: Infected diabetic foot. Evaluate for osteomyelitis. Impression: 1. Signal change in the marrow of the 1st distal phalanx with patchy increased STIR signal at the distal tuft of the 1st distal phalanx with associated mild patchy decreased T1 signal. These changes may be the sequelae of acute infectious changes such as acute osteomyelitis in the appropriate clinical setting. Additional etiologies not excluded. Clinical correlation. 2. Signal abnormality noted at the 4th distal phalanx with increased STIR signal and patchy decreased T1 signal also concerning for possible acute infectious changes and or acute osteomyelitis. Clinical correlation. 3. Moderate hallux valgus deformity with prominent degenerative changes at the 1st MTP joint space with associated osteochondral change and subchondral cyst formation. 4. Additional degenerative changes noted at the 1st interphalangeal joint space with joint space narrowing and bony productive change. 5. Degenerative changes at the dorsal aspect of the visualized midfoot. 6. Bipartite lateral sesamoid bone with bony hypertrophy and signal abnormality in the lateral sesamoid bone suggestive for osteochondral change. 7. Degenerative changes noted at the 4th MTP joint space with bony hypertrophy. 8. Mild fraying with increased signal seen within the visualized Lisfranc ligament suggest for a low to moderate grade sprain with some partial interstitial delamination and or mild partial interstitial tearing. Clinical correlation. 9. Degenerative changes noted at the base of the 4th metatarsal bone and corresponding cuboid bone with associated osteochondral change. Assessment and Plan (1) Diabetic foot infection Assessment & Plan: PVD Acute OM with Gangrenous Right Toes Continue Wound Care daily, and IV Vancomycin and Cefepime Continue ASA and Statin Classification Control Clerk on Board for Possible Amputation ID and Cardiovascular on board. I have discussed with the Classification Control Clerk resident who stated that possible amputation tomorrow if cleared for surgery. Mud Car Worker on case to be called by the resident. If cleared by the Mud Car Worker, I will clear the patient with Moderate risk given H/O CAD and Coronary Equivalence, and Chronic Heavy smoker. CBC with Diff CMP PT/INR/PTT Status: Acute
--- NOTE | 2017-03-09 12:55 | CP.PCM.PN ---
Subjective - Date & Time of Evaluation Date of Evaluation: 03/09/17 Time of Evaluation: 10:30 - Subjective Subjective: Podiatry Progress Note - Dr. Joyce 61 y/o male patient seen at bedside for necrotic distal tip of the 1st and 4th digit on the right foot. Patient is seen resting comfortably, AAOx3 and NAD. Patient denies any acute events overnight, was able to sleep well last night. Patient reports continued pain to both the 1st and 4th digit, however pain is decreased since yesterday's visit. Patient denies N/V/F/D/C/SOB/calf pain. No other pedal complaints at this time. Objective - Vital Signs/Intake and Output Vital Signs (last 24 hours): Temp Pulse Resp BP Pulse Ox 98.7 F 50 L 20 103/48 L 99 03/09/17 07:21 03/09/17 07:21 03/09/17 07:21 03/09/17 07:21 03/09/17 07:21 - Medications Medications: Current Medications Acetaminophen (Tylenol 325mg Tab) 650 mg PO Q6 PRN PRN Reason: Pain, Mild (1-3) Aspirin (Aspirin Chewable) 81 mg PO DAILY [facility] Last Admin: 03/09/17 08:21 Dose: 81 mg Atorvastatin Calcium (Lipitor) 20 mg PO DAILY [facility] Last Admin: 03/09/17 08:20 Dose: 20 mg Hydromorphone HCl (Dilaudid) 2 mg IVP Q4 PRN PRN Reason: Pain, severe (8-10) Last Admin: 03/09/17 12:16 Dose: 2 mg Vancomycin HCl 1 gm/ Sodium (Chloride) 250 mls @ 166.667 mls/hr IVPB DAILY [facility] Last Admin: 03/09/17 08:27 Dose: 166.667 mls/hr Cefepime HCl 1 gm/ Sodium (Chloride) 100 mls @ 100 mls/hr IVPB DAILY [facility] Last Admin: 03/09/17 08:22 Dose: 100 mls/hr Insulin Human Lispro (Humalog) 0 units SC ACHS [facility] PRN Reason: Protocol Last Admin: 03/09/17 12:17 Dose: 1 units Metformin HCl (Glucophage) 500 mg PO BID [facility] Last Admin: 03/09/17 08:21 Dose: 500 mg Morphine Sulfate (Morphine) 1 mg IVP Q3 PRN PRN Reason: Pain, moderate (4-7) Nicotine (Nicoderm Cq) 1 patch TD DAILY [facility] Last Admin: 03/09/17 08:21 Dose: 1 patch Trazodone HCl (Desyrel) 50 mg PO HS [facility] Last Admin: 03/08/17 21:52 Dose: 50 mg - Labs Labs: 03/09/17 04:50 03/09/17 04:50 PT 11.4 Seconds (9.8-13.1) 03/05/17 05:50 INR 1.1 (0.9-1.2) 03/05/17 05:50 APTT 30.0 Seconds (25.6-37.1) 03/05/17 05:50 - Constitutional Appears: Well, Non-toxic, No Acute Distress - Extremities Exam Additional comments: RLE focused exam: VASC: DP/PT pulses are palpable 1/4, STRATEGIC COMMUNICATIONS SPECIALIST: > 3 sec to non-gangrenous digits (1, 2 and 5), TG warm to warm from proximal to distal, +1 pitting edema noted on the dorsum of foot DERM: Distal tip of hallux as well as 4th digit is necrotic with mild serosanguinous drainage, no malodor and appears dry. No serous drainage or maceration noted to medial aspect of 4th digit at this visit. NEURO: Protective sensation mildly diminished ORTHO: Pain on palpation of the distal tip of the 4th digit. No pain on palpation to hallux - Neurological Exam Neurological Exam: Alert, Awake, Oriented x3 - Psychiatric Exam Psychiatric exam: Normal Affect, Normal Mood Assessment and Plan - Assessment and Plan (Free Text) Assessment: 61 y/o male seen at bedside for 1st and 4th digit dry gangrene Plan: Patient seen and evaluated at bedside Discussed with attending, Dr. Joyce Chart, vitals, labs reviewed = afebrile, WBC WNL @ 8.6 Betadine applied to right foot and dressed with 4x4s and kerlix Continue abx per ID = Cefepime, Vancomycin RLE MRI taken, awaiting final report F/U medicine recommendations for discharge home vs. TCU Podiatry to continue to follow patient while in house
--- NOTE | 2017-03-09 20:09 | MRI ---
MRI right foot History: Infected diabetic foot. Evaluate for osteomyelitis. Comparison: None available. Technique: Multi-echo multiplanar sequences were performed through the right foot without and with the use of intravenous contrast. Findings: Moderate hallux valgus deformity with prominent degenerative changes at the 1st MTP joint space with associated osteochondral change and subchondral cyst formation. Additional degenerative changes noted at the 1st interphalangeal joint space with joint space narrowing and bony productive change. Signal change in the marrow of the 1st distal phalanx with patchy increased STIR signal at the distal tuft of the 1st distal phalanx with associated mild patchy decreased T1 signal. These changes may be the sequelae of acute infectious changes such as acute osteomyelitis in the appropriate clinical setting. Additional etiologies not excluded. Clinical correlation. Degenerative changes at the dorsal aspect of the visualized midfoot. Bipartite lateral sesamoid bone with bony hypertrophy and signal abnormality in the lateral sesamoid bone suggestive for osteochondral change. Degenerative changes noted at the 4th MTP joint space with bony hypertrophy. Signal abnormality noted at the 4th distal phalanx with increased STIR signal and patchy decreased T1 signal also concerning for possible acute infectious changes and or acute osteomyelitis. Clinical correlation. Mild fraying with increased signal seen within the visualized Lisfranc ligament suggest for a low to moderate grade sprain with some partial interstitial delamination and or mild partial interstitial tearing. Clinical correlation. Degenerative changes noted at the base of the 4th metatarsal bone and corresponding cuboid bone with associated osteochondral change. Impression: 1. Signal change in the marrow of the 1st distal phalanx with patchy increased STIR signal at the distal tuft of the 1st distal phalanx with associated mild patchy decreased T1 signal. These changes may be the sequelae of acute infectious changes such as acute osteomyelitis in the appropriate clinical setting. Additional etiologies not excluded. Clinical correlation. 2. Signal abnormality noted at the 4th distal phalanx with increased STIR signal and patchy decreased T1 signal also concerning for possible acute infectious changes and or acute osteomyelitis. Clinical correlation. 3. Moderate hallux valgus deformity with prominent degenerative changes at the 1st MTP joint space with associated osteochondral change and subchondral cyst formation. 4. Additional degenerative changes noted at the 1st interphalangeal joint space with joint space narrowing and bony productive change. 5. Degenerative changes at the dorsal aspect of the visualized midfoot. 6. Bipartite lateral sesamoid bone with bony hypertrophy and signal abnormality in the lateral sesamoid bone suggestive for osteochondral change. 7. Degenerative changes noted at the 4th MTP joint space with bony hypertrophy. 8. Mild fraying with increased signal seen within the visualized Lisfranc ligament suggest for a low to moderate grade sprain with some partial interstitial delamination and or mild partial interstitial tearing. Clinical correlation. 9. Degenerative changes noted at the base of the 4th metatarsal bone and corresponding cuboid bone with associated osteochondral change.
[2017-03-10] MEDS: Insulin Lispro (humaLOG) 100 Units/ml Inj SC SCH ×4 (06:37→21:48)
--- NOTE | 2017-03-10 07:57 | CP.PCM.PN ---
Subjective - Date & Time of Evaluation Date of Evaluation: 03/10/17 Time of Evaluation: 07:55 - Subjective Subjective: Podiatry Progress Note - Dr. Joyce 61 y/o male patient seen at bedside for necrotic digits of the distal 1st and 4th toes on the right foot. Patient is seen resting comfortably in bed, AAOx3 and NAD. Patient denies any acute events overnight and states he got a full night of rest. Patient states his pain level is manageable at this time. Patient is aware and agreeable to surgery to remove the distal tips of his 1st and 4th toes. Patient denies N/V/F/D/C/SOB/calf pain. Pt has no other pedal complaints at this time. Objective - Vital Signs/Intake and Output Vital Signs (last 24 hours): Temp Pulse Resp BP Pulse Ox 97.3 F L 76 20 130/75 96 03/10/17 00:39 03/10/17 00:39 03/10/17 00:39 03/10/17 00:39 03/10/17 00:39 - Medications Medications: Current Medications Acetaminophen (Tylenol 325mg Tab) 650 mg PO Q6 PRN PRN Reason: Pain, Mild (1-3) Aspirin (Aspirin Chewable) 81 mg PO DAILY [facility] Last Admin: 03/09/17 08:21 Dose: 81 mg Atorvastatin Calcium (Lipitor) 20 mg PO DAILY [facility] Last Admin: 03/09/17 08:20 Dose: 20 mg Hydromorphone HCl (Dilaudid) 2 mg IVP Q4 PRN PRN Reason: Pain, severe (8-10) Last Admin: 03/10/17 05:03 Dose: 2 mg Vancomycin HCl 1 gm/ Sodium (Chloride) 250 mls @ 166.667 mls/hr IVPB DAILY [facility] Last Admin: 03/09/17 08:27 Dose: 166.667 mls/hr Cefepime HCl 1 gm/ Sodium (Chloride) 100 mls @ 100 mls/hr IVPB DAILY [facility] Last Admin: 03/09/17 08:22 Dose: 100 mls/hr Insulin Human Lispro (Humalog) 0 units SC ACHS [facility] PRN Reason: Protocol Last Admin: 03/10/17 06:37 Dose: Not Given Metformin HCl (Glucophage) 500 mg PO BID [facility] Last Admin: 03/09/17 16:59 Dose: 500 mg Nicotine (Nicoderm Cq) 1 patch TD DAILY [facility] Last Admin: 03/09/17 08:21 Dose: 1 patch Trazodone HCl (Desyrel) 50 mg PO HS [facility] Last Admin: 03/09/17 21:13 Dose: 50 mg - Labs Labs: 03/09/17 04:50 03/09/17 04:50 PT 11.4 Seconds (9.8-13.1) 03/05/17 05:50 INR 1.1 (0.9-1.2) 03/05/17 05:50 APTT 30.0 Seconds (25.6-37.1) 03/05/17 05:50 - Constitutional Appears: Well, Non-toxic, No Acute Distress - Extremities Exam Additional comments: RLE focused examination: VASC: DP/PT pulses palpable 1/4, CFT 3-4 sec to non-gangrenous digits (2,3,5), TG warm to warm from proximal to distal, +1 pitting edema noted on the dorsum of foot DERM: Distal tip of hallux and distal tip of 4th digit are necrotic with mild serosanguinous drainage noted on dressing. No malodor and appears dry. No serous drainage or maceration noted to medial aspect of 4th digit at this visit. NEURO: Protective sensation mildly diminished ORTHO: Pain on palpation of the distal tip of the 4th digit. No pain on palpation to hallux - Neurological Exam Neurological Exam: Alert, Awake, Oriented x3 - Psychiatric Exam Psychiatric exam: Normal Affect, Normal Mood Assessment and Plan - Assessment and Plan (Free Text) Assessment: 61 y/o male seen at bedside for 1st and 4th digit dry gangrene Plan: Patient seen and evaluated at bedside Discussed with attending, Dr. Joyce Chart, vitals, labs reviewed = afebrile, WBC WNL @ 8.6 Betadine applied to right foot and dressed with DSD Continue abx per ID = Cefepime, Vancomycin RLE MRI taken - report shows signal changes in 1st distal phalanx with increased STIR signal and decreased T1; signal abnormality in 4th distal phalanx , consistent with acute OM Pt explained risks and benefits of surgical intervention and is agreeable to proceed with surgery Pt to go to OR for distal Symes amputations of distal phalanges 1 and 4 Cardiac clearance pending - once cleared by cardiac, surgery can be scheduled for Wed or Pt cleared by medicine team with moderate risk Podiatry to continue to follow patient while in house
[2017-03-10] MEDS: Cefepime 1 GM in Sodium Chloride 0.9% 100 ML IVPB SCH (08:52)
--- NOTE | 2017-03-10 09:51 | CP.PCM.PN ---
Subjective - Date & Time of Evaluation Date of Evaluation: 03/10/17 Time of Evaluation: 09:40 - Subjective Subjective: patient has no chest pain or dyspnea. discussed with podiatry, will need hallux amputation. Objective - Vital Signs/Intake and Output Vital Signs (last 24 hours): Temp Pulse Resp BP Pulse Ox 98.4 F 44 L 20 137/63 99 03/10/17 08:12 03/10/17 08:12 03/10/17 08:12 03/10/17 08:12 03/10/17 08:12 - Medications Medications: Current Medications Acetaminophen (Tylenol 325mg Tab) 650 mg PO Q6 PRN PRN Reason: Pain, Mild (1-3) Aspirin (Aspirin Chewable) 81 mg PO DAILY [facility] Last Admin: 03/10/17 08:55 Dose: 81 mg Atorvastatin Calcium (Lipitor) 20 mg PO DAILY [facility] Last Admin: 03/10/17 08:55 Dose: 20 mg Hydromorphone HCl (Dilaudid) 2 mg IVP Q4 PRN PRN Reason: Pain, severe (8-10) Last Admin: 03/10/17 05:03 Dose: 2 mg Vancomycin HCl 1 gm/ Sodium (Chloride) 250 mls @ 166.667 mls/hr IVPB DAILY [facility] Last Admin: 03/10/17 08:52 Dose: 166.667 mls/hr Cefepime HCl 1 gm/ Sodium (Chloride) 100 mls @ 100 mls/hr IVPB DAILY [facility] Last Admin: 03/10/17 08:52 Dose: 100 mls/hr Insulin Human Lispro (Humalog) 0 units SC ACHS [facility] PRN Reason: Protocol Last Admin: 03/10/17 06:37 Dose: Not Given Metformin HCl (Glucophage) 500 mg PO BID [facility] Last Admin: 03/10/17 08:55 Dose: 500 mg Nicotine (Nicoderm Cq) 1 patch TD DAILY [facility] Last Admin: 03/10/17 08:55 Dose: 1 patch Trazodone HCl (Desyrel) 50 mg PO HS [facility] Last Admin: 03/09/17 21:13 Dose: 50 mg - Labs Labs: 03/09/17 04:50 03/09/17 04:50 PT 11.4 Seconds (9.8-13.1) 03/05/17 05:50 INR 1.1 (0.9-1.2) 03/05/17 05:50 APTT 30.0 Seconds (25.6-37.1) 03/05/17 05:50 - Constitutional Appears: Non-toxic - Head Exam Head Exam: NORMAL INSPECTION - Eye Exam Eye Exam: Normal appearance - ENT Exam ENT Exam: Mucous Membranes Moist - Neck Exam Neck Exam: Full ROM - Respiratory Exam Respiratory Exam: NORMAL BREATHING PATTERN - Cardiovascular Exam Cardiovascular Exam: REGULAR RHYTHM - GI/Abdominal Exam GI & Abdominal Exam: Normal Bowel Sounds - Rectal Exam Rectal Exam: Deferred - Extremities Exam Extremities Exam: absent: Pedal Edema - Back Exam Back Exam: NORMAL INSPECTION - Neurological Exam Neurological Exam: Alert - Psychiatric Exam Psychiatric exam: Normal Affect - Skin Skin Exam: Normal Color Assessment and Plan (1) Gangrene Assessment & Plan: revious peripheral angiogram revealed patent fem pop bypass, and patent run off to the foot. The patient has no current angina or heart failure. He tolerated major vascular surgery in August. He is scheduled for a low risk procedure. There is no cardiovascular contraindication to the planned procedure. He is optimized medically. Status: Acute (2) CAD (coronary artery disease) Assessment & Plan: no current angina Status: Chronic (3) HTN (hypertension) Assessment & Plan: blood pressure is controlled. Status: Chronic
--- NOTE | 2017-03-10 11:40 | CP.PCM.PN ---
Subjective - Date & Time of Evaluation Date of Evaluation: 03/10/17 Time of Evaluation: 08:00 - Subjective Subjective: events noted iv rx in progress seen by DR TIDWELL Objective - Vital Signs/Intake and Output Vital Signs (last 24 hours): Temp Pulse Resp BP Pulse Ox 98.4 F 44 L 20 137/63 99 03/10/17 08:12 03/10/17 08:12 03/10/17 08:12 03/10/17 08:12 03/10/17 08:12 - Medications Medications: Current Medications Acetaminophen (Tylenol 325mg Tab) 650 mg PO Q6 PRN PRN Reason: Pain, Mild (1-3) Aspirin (Aspirin Chewable) 81 mg PO DAILY [facility] Last Admin: 03/10/17 08:55 Dose: 81 mg Atorvastatin Calcium (Lipitor) 20 mg PO DAILY [facility] Last Admin: 03/10/17 08:55 Dose: 20 mg Hydromorphone HCl (Dilaudid) 2 mg IVP Q4 PRN PRN Reason: Pain, severe (8-10) Last Admin: 03/10/17 10:25 Dose: 2 mg Vancomycin HCl 1 gm/ Sodium (Chloride) 250 mls @ 166.667 mls/hr IVPB DAILY [facility] Last Admin: 03/10/17 08:52 Dose: 166.667 mls/hr Cefepime HCl 1 gm/ Sodium (Chloride) 100 mls @ 100 mls/hr IVPB DAILY [facility] Last Admin: 03/10/17 08:52 Dose: 100 mls/hr Dextrose/Sodium Chloride (Dextrose 5%/0.9% Ns 1000 Ml) 1,000 mls @ 60 mls/hr IV .[id number] [facility] Stop: 03/11/17 23:59 Insulin Human Lispro (Humalog) 0 units SC ACHS [facility] PRN Reason: Protocol Last Admin: 03/10/17 06:37 Dose: Not Given Metformin HCl (Glucophage) 500 mg PO BID [facility] Last Admin: 03/10/17 08:55 Dose: 500 mg Nicotine (Nicoderm Cq) 1 patch TD DAILY [facility] Last Admin: 03/10/17 08:55 Dose: 1 patch Trazodone HCl (Desyrel) 50 mg PO HS [facility] Last Admin: 03/09/17 21:13 Dose: 50 mg - Labs Labs: 03/09/17 04:50 03/09/17 04:50 PT 11.4 Seconds (9.8-13.1) 03/05/17 05:50 INR 1.1 (0.9-1.2) 03/05/17 05:50 APTT 30.0 Seconds (25.6-37.1) 03/05/17 05:50 - Constitutional Appears: Non-toxic, Chronically Ill - Head Exam Head Exam: NORMOCEPHALIC - Eye Exam Eye Exam: PERRL - ENT Exam ENT Exam: Mucous Membranes Dry, Normal External Ear Exam - Neck Exam Neck Exam: absent: Lymphadenopathy - Respiratory Exam Respiratory Exam: Decreased Breath Sounds - Cardiovascular Exam Cardiovascular Exam: REGULAR RHYTHM - GI/Abdominal Exam GI & Abdominal Exam: Distended, Soft - Rectal Exam Rectal Exam: Deferred - Exam Exam: NORMAL INSPECTION - Extremities Exam Extremities Exam: absent: Pedal Edema - Back Exam Back Exam: absent: CVA tenderness (L), CVA tenderness (R) Assessment and Plan - Assessment and Plan (Free Text) Plan: CONT IV RX PER DR LAUREN
--- NOTE | 2017-03-10 19:04 | CP.PCM.PN ---
Subjective - Date & Time of Evaluation Date of Evaluation: 03/10/17 Time of Evaluation: 07:00 - Subjective Subjective: Seen and examined at the bed side. Denies sob, chest pain or palpitations. METs Equivalent cannot be assessed due to patient unable to ambulate optimally. Patient has tolerated high risk Vascular surgery recently, and also no active cardiac disease. Going Low risk surgery for Toe amputations. Denies fever or chills. Objective - Vital Signs/Intake and Output Vital Signs (last 24 hours): Temp Pulse Resp BP Pulse Ox 99.7 F H 53 L 20 139/59 L 95 03/10/17 16:38 03/10/17 16:38 03/10/17 16:38 03/10/17 16:38 03/10/17 16:38 - Medications Medications: Current Medications Acetaminophen (Tylenol 325mg Tab) 650 mg PO Q6 PRN PRN Reason: Pain, Mild (1-3) Aspirin (Aspirin Chewable) 81 mg PO DAILY [facility] Last Admin: 03/10/17 08:55 Dose: 81 mg Atorvastatin Calcium (Lipitor) 20 mg PO DAILY [facility] Last Admin: 03/10/17 08:55 Dose: 20 mg Hydromorphone HCl (Dilaudid) 2 mg IVP Q4 PRN PRN Reason: Pain, severe (8-10) Last Admin: 03/10/17 15:59 Dose: 2 mg Vancomycin HCl 1 gm/ Sodium (Chloride) 250 mls @ 166.667 mls/hr IVPB DAILY [facility] Last Admin: 03/10/17 08:52 Dose: 166.667 mls/hr Cefepime HCl 1 gm/ Sodium (Chloride) 100 mls @ 100 mls/hr IVPB DAILY [facility] Last Admin: 03/10/17 08:52 Dose: 100 mls/hr Dextrose/Sodium Chloride (Dextrose 5%/0.9% Ns 1000 Ml) 1,000 mls @ 60 mls/hr IV .[id number] [facility] Stop: 03/11/17 23:59 Insulin Human Lispro (Humalog) 0 units SC ACHS [facility] PRN Reason: Protocol Last Admin: 03/10/17 16:21 Dose: Not Given Metformin HCl (Glucophage) 500 mg PO BID [facility] Last Admin: 03/10/17 15:59 Dose: 500 mg Nicotine (Nicoderm Cq) 1 patch TD DAILY [facility] Last Admin: 03/10/17 08:55 Dose: 1 patch Trazodone HCl (Desyrel) 50 mg PO HS [facility] Last Admin: 03/09/17 21:13 Dose: 50 mg - Labs Labs: 03/09/17 04:50 03/09/17 04:50 PT 11.4 Seconds (9.8-13.1) 03/05/17 05:50 INR 1.1 (0.9-1.2) 03/05/17 05:50 APTT 30.0 Seconds (25.6-37.1) 03/05/17 05:50 - Constitutional Appears: Well, No Acute Distress - Head Exam Head Exam: ATRAUMATIC, NORMAL INSPECTION, NORMOCEPHALIC - Eye Exam Eye Exam: EOMI, Normal appearance, PERRL Pupil Exam: NORMAL ACCOMODATION, PERRL - ENT Exam ENT Exam: Mucous Membranes Moist, Normal Exam - Neck Exam Neck Exam: Full ROM, Normal Inspection. absent: Lymphadenopathy - Respiratory Exam Respiratory Exam: Clear to Ausculation Bilateral, NORMAL BREATHING PATTERN - Cardiovascular Exam Cardiovascular Exam: REGULAR RHYTHM, +S1, +S2. absent: Murmur - GI/Abdominal Exam GI & Abdominal Exam: Soft, Normal Bowel Sounds. absent: Tenderness - Extremities Exam Additional comments: Distal tip of hallux as well as 4th digit is necrotic with mild serosanguinous drainage, no malodor and appears dry. No serous drainage or maceration noted to medial aspect of 4th digit at this visit. - Back Exam Back Exam: NORMAL INSPECTION - Neurological Exam Neurological Exam: Alert, Awake, CN II-XII Intact, Normal Gait, Oriented x3 - Psychiatric Exam Psychiatric exam: Normal Affect, Normal Mood - Skin Skin Exam: Dry, Intact, Normal Color, Warm Assessment and Plan (1) Diabetic foot infection Assessment & Plan: PVD Acute OM with Gangrenous Right 1st and 4th Toes Continue Wound Care daily, and IV Vancomycin and Cefepime Continue ASA and Statin Scheduled Possible Amputation Tester Regulator Clearance for the surgery apprecaited. CBC with Diff CMP PT/INR/PTT Medically Cleared for Toe amputations with Moderate Risk. Status: Acute
[2017-03-11] MEDS ORDERED: Dextrose 5%/0.9% NS 1,000 ML IV SCH (00:01)
[2017-03-11] MEDS: Insulin Lispro (humaLOG) 100 Units/ml Inj SC SCH ×4 (07:39→22:05)
[2017-03-11] MEDS: Cefepime 1 GM in Sodium Chloride 0.9% 100 ML IVPB SCH (08:19)
--- NOTE | 2017-03-11 08:37 | CP.PCM.PN ---
Subjective - Date & Time of Evaluation Date of Evaluation: 03/11/17 Time of Evaluation: 08:35 - Subjective Subjective: Podiatry Progress Note - Dr. Joyce 61 y/o male patient seen at bedside for necrotic digits of the distal 1st and 4th toes on the right foot. Patient is seen resting comfortably in bed, AAOx3 and NAD. Patient denies any acute events overnight. Patient states he is ready for surgery today and has not had anything to eat or drink since 8pm last night. Pt has no other questions or concerns at this time. Pt denies F/C/N/V/ SOB. Objective - Vital Signs/Intake and Output Vital Signs (last 24 hours): Temp Pulse Resp BP Pulse Ox 98.5 F 48 L 20 105/42 L 96 03/11/17 00:47 03/11/17 00:47 03/11/17 00:47 03/11/17 00:47 03/11/17 00:47 - Medications Medications: Current Medications Acetaminophen (Tylenol 325mg Tab) 650 mg PO Q6 PRN PRN Reason: Pain, Mild (1-3) Aspirin (Aspirin Chewable) 81 mg PO DAILY [facility] Last Admin: 03/11/17 08:04 Dose: Not Given Atorvastatin Calcium (Lipitor) 20 mg PO DAILY [facility] Last Admin: 03/11/17 08:05 Dose: Not Given Hydromorphone HCl (Dilaudid) 2 mg IVP Q4 PRN PRN Reason: Pain, severe (8-10) Last Admin: 03/10/17 20:41 Dose: 2 mg Vancomycin HCl 1 gm/ Sodium (Chloride) 250 mls @ 166.667 mls/hr IVPB DAILY [facility] Last Admin: 03/11/17 08:20 Dose: 166.667 mls/hr Cefepime HCl 1 gm/ Sodium (Chloride) 100 mls @ 100 mls/hr IVPB DAILY [facility] Last Admin: 03/11/17 08:19 Dose: 100 mls/hr Dextrose/Sodium Chloride (Dextrose 5%/0.9% Ns 1000 Ml) 1,000 mls @ 60 mls/hr IV .[id number] [facility] Stop: 03/11/17 23:59 Last Admin: 03/11/17 00:09 Dose: 60 mls/hr Insulin Human Lispro (Humalog) 0 units SC ACHS [facility] PRN Reason: Protocol Last Admin: 03/11/17 07:39 Dose: Not Given Metformin HCl (Glucophage) 500 mg PO BID [facility] Last Admin: 03/11/17 08:04 Dose: Not Given Nicotine (Nicoderm Cq) 1 patch TD DAILY [facility] Last Admin: 03/11/17 08:16 Dose: 1 patch Trazodone HCl (Desyrel) 50 mg PO HS [facility] Last Admin: 03/10/17 21:45 Dose: 50 mg - Labs Labs: 03/09/17 04:50 03/09/17 04:50 PT 11.4 Seconds (9.8-13.1) 03/05/17 05:50 INR 1.1 (0.9-1.2) 03/05/17 05:50 APTT 30.0 Seconds (25.6-37.1) 03/05/17 05:50 - Constitutional Appears: Well, Non-toxic, No Acute Distress - Extremities Exam Additional comments: Dressing is clean, dry and intact to R foot - Neurological Exam Neurological Exam: Alert, Awake, Oriented x3 - Psychiatric Exam Psychiatric exam: Normal Affect, Normal Mood Assessment and Plan - Assessment and Plan (Free Text) Assessment: 61 y/o male seen at bedside for 1st and 4th digit dry gangrene Plan: Patient seen and evaluated at bedside Discussed with attending, Dr. Joyce Chart, vitals, labs reviewed = afebrile, WBC WNL @ 8.6 Pt to go to OR today 12:30pm for distal phalanx amputations of digits 1 and 4 Pt NPO status confirmed New CBC with diff and CMP ordered at this time Cleared from medical standpoint with moderate risk Of note that patient has extensive history of non-compliance and poses significant risk of infection and potential loss of limb should he choose to not follow up post operatively Podiatry will continue to follow while in house
[2017-03-11 10:57] LABS: BASO # 0.1 K/uL (0.0-0.2); BASO % 0.8 % (0.0-2.0); EOS # 0.5 K/uL (0.0-0.7); EOS % 6.7 % (0.0-4.0); HEMATOCRIT 33.9 % (35.0-51.0); LYMPH # 1.4 K/uL (1.0-4.3); LYMPH % 19.8 % (20.0-40.0); MEAN CELL VOLUME 88.4 fl (80.0-94.0); MEAN CORPUSCULAR HEMOGLOBIN 29.3 pg (27.0-31.0); MEAN CORPUSCULAR HGB CONC 33.2 g/dL (33.0-37.0); MEAN PLATELET VOLUME 9.4 fl (7.2-11.7); MONO # 0.7 K/uL (0.0-0.8); MONO % 9.4 % (0.0-10.0); NEUT # 4.6 K/uL (1.8-7.0); NEUT % 63.3 % (50.0-75.0); RED CELL DISTRIBUTION WIDTH 13.7 % (11.5-14.5); WHITE BLOOD COUNT 7.3 K/uL (4.8-10.8)
[2017-03-11] MEDS ORDERED: Bupivacaine 0.5% Inj(30mL) IJ ONE (11:02)
[2017-03-11] MEDS ORDERED: ceFAZolin 1 GM in Sodium Chloride 0.9% 100 ML IVPB ONE (11:02)
[2017-03-11] MEDS ORDERED: Lidocaine 1% Inj (20ml) IJ ONE ×2 (11:02→13:03)
[2017-03-11 11:07] LABS: ALB/GLOB RATIO 1.1 (1.0-2.1); ALKALINE PHOSPHATASE 67 U/L (38-126); ALT/SGPT 24 U/L (21-72); AST/SGOT 19 U/L (17-59); BILIRUBIN,TOTAL 0.4 mg/dl (0.2-1.3); BLOOD UREA NITROGEN 31 mg/dl (9-20); CALCIUM 9.5 mg/dL (8.4-10.2); CARBON DIOXIDE 23 mmol/L (22-30); CHLORIDE 106 mmol/L (98-107); GFR AFRICAN-AMERICAN > 60; GLUCOSE,RANDOM 110 mg/dL (75-110); POTASSIUM 4.8 MMOL/L (3.6-5.0); SODIUM 138 mmol/l (132-148); TOTAL PROTEIN 7.3 G/DL (6.3-8.2)
[2017-03-11] MEDS ORDERED: Sodium Chloride 0.9% 1,000 ML IV SCH (11:15)
--- NOTE | 2017-03-11 11:56 | CARD ---
APPROVED REPORT EXAM: Two-dimensional and M-mode echocardiogram with Doppler and color Doppler. Other Information Quality : GoodRhythm : PVC's INDICATION Pre-Op 2D DIMENSIONS IVSd1.73 (0.7-1.1cm)LVDd5.31 (3.9-5.9cm) LVOT Diameter2.62 (1.8-2.4cm)PWd1.31 (0.7-1.1cm) IVSs1.64 (0.8-1.2cm)LVDs3.63 (2.5-4.0cm) FS (%) 31.6 %PWs1.64 (0.8-1.2cm) M-Mode DIMENSIONS Left Atrium (MM)5.26 (2.5-4.0cm)IVSd1.47 (0.7-1.1cm) Aortic Root3.24 (2.2-3.7cm)LVDd5.97 (4.0-5.6cm) Aortic Cusp Exc.2.26 (1.5-2.0cm)PWd1.21 (0.7-1.1cm) IVSs1.71 cmFS (%) 34 % LVDs3.91 (2.0-3.8cm)PWs1.71 cm Mitral Valve MV E Fxmuscrk58.0cm/sMV DECEL [id number] A Cqqluqkk11.0cm/s MV RRB55itA/A ratio1.3MVA (PHT)2.65cm2 TDI Lateral E' Peak V11.41cm/sMedial E' Peak V4.56cm/sE/Lateral E'6.2 E/Medial E'15.6 Pulmonary Valve PV Peak Fwqaiypw722.5cm/s LEFT VENTRICLE The left ventricle is normal size. There is mild concentric left ventricular hypertrophy. Left ventricle systolic function is mildly to moderately impaired. The Ejection Fraction is 45% There is mild global hypokinesis The left ventricular diastolic function is normal. No left ventricle thrombus noted on this study. There is no ventricular septal defect visualized. There is no left ventricular aneurysm. There is no mass noted in the left ventricle. RIGHT VENTRICLE The right ventricle is normal size. There is normal right ventricular wall thickness. The right ventricular systolic function is normal. ATRIA The left atrium size is normal. The right atrium size is normal. The interatrial septum is intact with no evidence for an atrial septal defect. AORTIC VALVE The aortic valve is mildly sclerotic. There is trace aortic regurgitation. There is no aortic valvular stenosis. There is no aortic valvular vegetation. MITRAL VALVE The mitral valve is normal in structure and function. There is no evidence of mitral valve prolapse. There is no mitral valve stenosis. Mitral regurgitation is trace. TRICUSPID VALVE The tricuspid valve is normal in structure and function. There is no tricuspid valve regurgitation noted. There is no tricuspid valve prolapse or vegetation. There is no tricuspid valve stenosis. PULMONIC VALVE The pulmonary valve is normal in structure and function. There is no pulmonic valvular regurgitation. There is no pulmonic valvular stenosis. GREAT VESSELS The aortic root is normal in size. The ascending aorta is normal in size. The IVC is normal in size and collapses >50% with inspiration. PERICARDIAL EFFUSION The pericardium appears normal. There is no pleural effusion. <Conclusion> Mild to Moderately Reduced LV Function LVEF 45% Mild Global Hypokinesis Mild Concentric LVH
[2017-03-11] MEDS ORDERED: Propofol 10 mg/ml Inj (20 ML) ONE ×2 (12:16→13:08)
[2017-03-11] MEDS ORDERED: Midazolam 2 MG/2 ML VIAL ONE (12:17)
[2017-03-11] MEDS ORDERED: Bupivacaine 0.5% Inj(30mL) ONE (12:28)
[2017-03-11] MEDS ORDERED: Lidocaine 1% Inj (20ml) ONE (12:28)
[2017-03-11] MEDS ORDERED: Lactated Ringer's 1,000 ML IV ONE (12:42)
[2017-03-11] MEDS ORDERED: Bupivacaine 0.5% 50 ML IJ ONE ×2 (13:03→13:50)
[2017-03-11] MEDS ORDERED: Oxycodone/Acetaminophen 5/325 mg Tab PO PRN (14:00)
[2017-03-11] MEDS ORDERED: HYDROmorphone 0.5 mg/0.5 ml ISec IVP PRN (14:02)
--- NOTE | 2017-03-11 14:05 | PCM.SURG1 ---
Surgeon's Initial Post Op Note - Surgeon's Notes Surgeon: Dr. Sagrario Joyce Audit Control Clerk: Natalya Sidhu PGY-1 Type of Anesthesia: IV Sedation, Local Anesthesia Administered By: Dr. 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 I: 20 cc 1:1 Lidocaine 1% pl and 0.5 % Marcaine pl pre-op block, 10cc 0.5% Marcaine pl post-op. M: 3-0 Nylon, 4-0 Nylon Post-Operative Diagnosis: same Operation Performed: right partial hallux amputation and 4th digit distal phalanx amputation Specimen/Specimens Removed: right hallux distal phalanx, right hallux proximal phalanx, right 4th digit distal phalanx Estimated Blood Loss: EBL {In ML}: 10 Blood Products Given: N/A Drains Used: No Drains Post-Op Condition: Good Date of Surgery/Procedure: 03/11/17 Time of Surgery/Procedure: 12:45
[2017-03-11] MEDS: Lactated Ringer's 1,000 ML IV SCH (14:48)
--- NOTE | 2017-03-11 14:59 | CP.PCM.PN ---
Subjective - Date & Time of Evaluation Date of Evaluation: 03/11/17 Time of Evaluation: 10:00 - Subjective Subjective: rx in progress Objective - Vital Signs/Intake and Output Vital Signs (last 24 hours): Temp Pulse Resp BP Pulse Ox 98.6 F 51 L 20 165/62 H 98 03/11/17 14:56 03/11/17 14:56 03/11/17 14:56 03/11/17 14:56 03/11/17 14:56 Intake and Output: 03/11/17 03/11/17 06:59 18:59 Intake Total 300 Balance 300 - Medications Medications: Current Medications Acetaminophen (Tylenol 325mg Tab) 650 mg PO Q6 PRN PRN Reason: Pain, Mild (1-3) Acetaminophen (Tylenol 325mg Tab) 650 mg PO Q4 PRN PRN Reason: Pain, Mild (1-3) Aspirin (Aspirin Chewable) 81 mg PO DAILY [facility] Last Admin: 03/11/17 08:04 Dose: Not Given Atorvastatin Calcium (Lipitor) 20 mg PO DAILY [facility] Last Admin: 03/11/17 08:05 Dose: Not Given Hydromorphone HCl (Dilaudid) 2 mg IVP Q4 PRN PRN Reason: Pain, severe (8-10) Last Admin: 03/11/17 10:22 Dose: 2 mg Hydromorphone HCl (Dilaudid) 0.5 mg IVP Q10M PRN PRN Reason: Pain, moderate (4-7) Vancomycin HCl 1 gm/ Sodium (Chloride) 250 mls @ 166.667 mls/hr IVPB DAILY [facility] Last Admin: 03/11/17 08:20 Dose: 166.667 mls/hr Cefepime HCl 1 gm/ Sodium (Chloride) 100 mls @ 100 mls/hr IVPB DAILY [facility] Last Admin: 03/11/17 08:19 Dose: 100 mls/hr Dextrose/Sodium Chloride (Dextrose 5%/0.9% Ns 1000 Ml) 1,000 mls @ 60 mls/hr IV .[id number] [facility] Stop: 03/11/17 23:59 Last Admin: 03/11/17 00:09 Dose: 60 mls/hr Sodium Chloride (Sodium Chloride 0.9%) 1,000 mls @ 1,000 mls/hr IV .Q1H [facility] Stop: 03/12/17 11:03 Lactated Ringer's (Lactated Ringer's) 1,000 mls @ 125 mls/hr IV .Q8H [facility] Last Admin: 03/11/17 14:48 Dose: Not Given Insulin Human Lispro (Humalog) 0 units SC ACHS [facility] PRN Reason: Protocol Last Admin: 03/11/17 10:48 Dose: Not Given Metformin HCl (Glucophage) 500 mg PO BID [facility] Last Admin: 03/11/17 08:04 Dose: Not Given Nicotine (Nicoderm Cq) 1 patch TD DAILY [facility] Last Admin: 03/11/17 10:19 Dose: Not Given Oxycodone/Acetaminophen (Percocet 5/325 Mg Tab) 1 tab PO Q4 PRN PRN Reason: Pain, moderate (4-7) Stop: 03/14/17 14:01 Oxycodone/Acetaminophen (Percocet 5/325 Mg Tab) 2 tab PO Q4 PRN PRN Reason: Pain, severe (8-10) Stop: 03/14/17 14:01 Trazodone HCl (Desyrel) 50 mg PO [facility] Last Admin: 03/10/17 21:45 Dose: 50 mg - Labs Labs: 03/11/17 10:45 03/11/17 10:45 PT 11.4 Seconds (9.8-13.1) 03/05/17 05:50 INR 1.1 (0.9-1.2) 03/05/17 05:50 APTT 30.0 Seconds (25.6-37.1) 03/05/17 05:50 - Constitutional Appears: Non-toxic, Chronically Ill - Head Exam Head Exam: NORMOCEPHALIC - Eye Exam Eye Exam: PERRL. absent: Scleral icterus - ENT Exam ENT Exam: Mucous Membranes Dry - Neck Exam Neck Exam: absent: Lymphadenopathy - Respiratory Exam Respiratory Exam: Decreased Breath Sounds - Cardiovascular Exam Cardiovascular Exam: REGULAR RHYTHM - GI/Abdominal Exam GI & Abdominal Exam: Distended, Soft Assessment and Plan - Assessment and Plan (Free Text) Assessment: cont iv rx
--- NOTE | 2017-03-11 16:44 | RAD ---
PROCEDURE: Right Foot Radiographs. HISTORY: s/p right foot surgery COMPARISON: 02/28/2017 FINDINGS: BONES: Status post surgical amputation of distal phalanx and distal aspect of the proximal phalanx of the great toe. There is no acute fracture or bone destruction. There is diffuse bone demineralization. There is a large plantar calcaneal spur. JOINTS: There is mild degenerative osteoarthrosis in the metatarsal-phalangeal joints. SOFT TISSUES: Normal. OTHER FINDINGS: None. IMPRESSION: Status post surgical amputation of the distal phalanx and distal aspect of the proximal phalanx of the great toe.
--- NOTE | 2017-03-11 21:45 | CP.PCM.PN ---
Subjective - Date & Time of Evaluation Date of Evaluation: 03/11/17 Time of Evaluation: 22:00 - Subjective Subjective: Going for Right Toe Amputations.+pain to the gangrene site Objective - Vital Signs/Intake and Output Vital Signs (last 24 hours): Temp Pulse Resp BP Pulse Ox 98.1 F 51 L 16 125/59 L 98 03/11/17 17:01 03/11/17 17:01 03/11/17 17:01 03/11/17 17:01 03/11/17 17:01 Intake and Output: 03/11/17 03/12/17 18:59 06:59 Intake Total 300 Balance 300 - Medications Medications: Current Medications Acetaminophen (Tylenol 325mg Tab) 650 mg PO Q6 PRN PRN Reason: Pain, Mild (1-3) Acetaminophen (Tylenol 325mg Tab) 650 mg PO Q4 PRN PRN Reason: Pain, Mild (1-3) Aspirin (Aspirin Chewable) 81 mg PO DAILY [facility] Last Admin: 03/11/17 08:04 Dose: Not Given Atorvastatin Calcium (Lipitor) 20 mg PO DAILY [facility] Last Admin: 03/11/17 08:05 Dose: Not Given Hydromorphone HCl (Dilaudid) 2 mg IVP Q4 PRN PRN Reason: Pain, severe (8-10) Last Admin: 03/11/17 19:55 Dose: 2 mg Hydromorphone HCl (Dilaudid) 0.5 mg IVP Q10M PRN PRN Reason: Pain, moderate (4-7) Vancomycin HCl 1 gm/ Sodium (Chloride) 250 mls @ 166.667 mls/hr IVPB DAILY [facility] Last Admin: 03/11/17 08:20 Dose: 166.667 mls/hr Cefepime HCl 1 gm/ Sodium (Chloride) 100 mls @ 100 mls/hr IVPB DAILY [facility] Last Admin: 03/11/17 08:19 Dose: 100 mls/hr Dextrose/Sodium Chloride (Dextrose 5%/0.9% Ns 1000 Ml) 1,000 mls @ 60 mls/hr IV .[id number] [facility] Stop: 03/11/17 23:59 Last Admin: 03/11/17 00:09 Dose: 60 mls/hr Sodium Chloride (Sodium Chloride 0.9%) 1,000 mls @ 1,000 mls/hr IV .Q1H [facility] Stop: 03/12/17 11:03 Lactated Ringer's (Lactated Ringer's) 1,000 mls @ 125 mls/hr IV .Q8H [facility] Last Admin: 03/11/17 14:48 Dose: Not Given Insulin Human Lispro (Humalog) 0 units SC ACHS [facility] PRN Reason: Protocol Last Admin: 03/11/17 16:19 Dose: Not Given Metformin HCl (Glucophage) 500 mg PO BID [facility] Last Admin: 03/11/17 16:18 Dose: 500 mg Nicotine (Nicoderm Cq) 1 patch TD DAILY [facility] Last Admin: 03/11/17 10:19 Dose: Not Given Oxycodone/Acetaminophen (Percocet 5/325 Mg Tab) 1 tab PO Q4 PRN PRN Reason: Pain, moderate (4-7) Stop: 03/14/17 14:01 Oxycodone/Acetaminophen (Percocet 5/325 Mg Tab) 2 tab PO Q4 PRN PRN Reason: Pain, severe (8-10) Stop: 03/14/17 14:01 Trazodone HCl (Desyrel) 50 mg PO HS [facility] Last Admin: 03/10/17 21:45 Dose: 50 mg - Labs Labs: 03/11/17 10:45 03/11/17 10:45 PT 11.4 Seconds (9.8-13.1) 03/05/17 05:50 INR 1.1 (0.9-1.2) 03/05/17 05:50 APTT 30.0 Seconds (25.6-37.1) 03/05/17 05:50 - Constitutional Appears: No Acute Distress - Head Exam Head Exam: ATRAUMATIC, NORMAL INSPECTION, NORMOCEPHALIC - Eye Exam Eye Exam: EOMI, Normal appearance, PERRL Pupil Exam: NORMAL ACCOMODATION, PERRL - ENT Exam ENT Exam: Mucous Membranes Moist, Normal Exam - Neck Exam Neck Exam: Full ROM, Normal Inspection. absent: Lymphadenopathy - Respiratory Exam Respiratory Exam: Clear to Ausculation Bilateral, NORMAL BREATHING PATTERN - Cardiovascular Exam Cardiovascular Exam: REGULAR RHYTHM, +S1, +S2. absent: Murmur - GI/Abdominal Exam GI & Abdominal Exam: Soft, Normal Bowel Sounds. absent: Tenderness - Extremities Exam Additional comments: Distal tip of Hallux as well as 4th digit is necrotic with mild serosanguinous drainage, no malodor and appears dry. No serous drainage or maceration noted to medial aspect of 4th digit at this visit. - Back Exam Back Exam: NORMAL INSPECTION - Neurological Exam Neurological Exam: Alert, Awake, CN II-XII Intact, Normal Gait, Oriented x3 - Psychiatric Exam Psychiatric exam: Normal Affect, Normal Mood - Skin Skin Exam: Dry, Intact, Normal Color, Warm Assessment and Plan (1) Diabetic foot infection Assessment & Plan: PVD Acute OM with Gangrenous Right 1st and 4th Toes Continue Wound Care daily, and IV Vancomycin and Cefepime Continue ASA and Statin Scheduled for Toe Amputations for PM Computer Aided Drafter Clearance for the surgery appreciated. Medically Cleared for Toe amputations with Moderate Risk. Status: Acute
--- NOTE | 2017-03-12 05:14 | OP ---
PROCEDURE DATE: 03/11/2017 PREOPERATIVE DIAGNOSIS: Right foot first and fourth distal phalanx osteomyelitis with gangrene. POSTOPERATIVE DIAGNOSIS: Right foot first and fourth distal phalanx osteomyelitis with gangrene. NAME OF PROCEDURE: Right partial hallux amputation and fourth digit distal phalanx amputation. SURGEON: Sagrario Joyce DPM [facility] STRINGER: Natalya Sidhu PGY1 TYPE OF ANESTHESIA: IV sedation with local. ANESTHESIOLOGIST: Ivory Longoria MD INDICATIONS: The patient is a 61-year-old male with the above diagnosis. The patient has exhausted all conservative treatment at this time and now requires surgical intervention. The patient signed the consent after careful explanation of risks, benefits, complications, and alternatives of the surgical procedure. No guarantees were given nor implied. N.p.o. status was confirmed prior to taking the patient to the OR. PREPARATION: The patient was brought into the operating room and placed on the operating room table in a supine position. A time-out was performed for identification of the correct patient and procedure. After induction of IV sedation, the patient received a total of 20 mL of mixture of 1:1, 1% lidocaine plain to 0.5% Marcaine plain in local block-type fashion to the right foot. The right foot was then prepared and draped in normal sterile manner and the procedure began. No tourniquet was used during this procedure. PROCEDURE: Attention was drawn to the distal tip of the right hallux where distal elliptical incision was made using a #15 blade. Incision was then extended down through the subcutaneous layers down to the level of the bone from the medial and lateral aspect of the hallux proximal to the distal tip of the proximal phalanx of the right hallux. Using a bone clamp to stabilize the hallux, distal phalanx was then disarticulated from the foot at the level of the DIPJ. Using a sagittal saw approximately distal one third of the proximal phalanx was resected and passed from the operative field. Using a fresh #15 blade, all necrotic and nonviable tissues were then excisionally debrided from the surgical site. The wound was then copiously flushed with sterile saline using the bulb syringe. Distal phalanx of the right hallux as well as the distal aspect of the proximal phalanx was sent to pathology. The surgical site was then sutured and closed using 3-0 nylon superficial sutures. Attention was then drawn to the dorsal distal aspect of the right fourth digit where a fish-mouth incision was made at the level of DIPJ using a #15 blade. Incision was then extended down through the subcutaneous layer down to the level of bone. Using the bone clamp to stabilize the toe, the fourth distal phalanx was then disarticulated from the foot at the level of DIPJ and was passed from the operative field to prep and sent to pathology. Using a fresh #15 blade, all necrotic and nonviable tissues were then excisionally debrided from the surgical site. The wound was then copiously flushed with sterile saline using the bulb syringe. The surgical site was then sutured and closed using the 4-0 nylon superficial sutures. The wound was then dressed with Betadine soaked Adaptic, 4 x 4, gauze, and Kerlix. POSTOPERATIVE CONDITION: The patient tolerated the anesthesia and procedure well and was escorted to recovery room with vital signs stable and neurovascular status intact to the right foot. The patient is to remain partially bearing to the right lower extremity as tolerated using the surgical shoe with crutches. The patient is to return to floor and once discharge, we will followup at podiatry clinic with Dr. Joyce. Natalya Sidhu DPM [facility]
[2017-03-12 06:05] LABS: HEMATOCRIT 33.7 % (35.0-51.0); MEAN CELL VOLUME 89.3 fl (80.0-94.0); MEAN CORPUSCULAR HEMOGLOBIN 29.2 pg (27.0-31.0); MEAN CORPUSCULAR HGB CONC 32.6 g/dL (33.0-37.0); WHITE BLOOD COUNT 7.8 K/uL (4.8-10.8)
[2017-03-12 06:19] LABS: BLOOD UREA NITROGEN 33 mg/dl (9-20); CALCIUM 9.4 mg/dL (8.4-10.2); CARBON DIOXIDE 26 mmol/L (22-30); CHLORIDE 104 mmol/L (98-107); GFR AFRICAN-AMERICAN > 60; GLUCOSE,RANDOM 88 mg/dL (75-110); SODIUM 139 mmol/l (132-148)
[2017-03-12] MEDS: Insulin Lispro (humaLOG) 100 Units/ml Inj SC SCH ×4 (06:48→23:31)
[2017-03-12] MEDS: Lactated Ringer's 1,000 ML IV SCH ×3 (07:14→23:15)
--- NOTE | 2017-03-12 08:13 | CP.PCM.PN ---
Subjective - Date & Time of Evaluation Date of Evaluation: 03/12/17 Time of Evaluation: 08:21 - Subjective Subjective: Podiatry Progress Note - Dr. Joyce 61 y/o male patient seen at bedside 1 day s/p right foot 1st and 4th distal phalanx amputations. Patient is seen resting comfortably in bed, AAOx3 and NAD. Patient denies any acute events overnight. Patient admits to mild-moderate pain in the toes following surgery. Patient denies N/V/F/D/C/SOB/calf pain. Pt has no other pedal complaints at this time. Objective - Vital Signs/Intake and Output Vital Signs (last 24 hours): Temp Pulse Resp BP Pulse Ox 98.5 F 40 L 20 139/80 98 03/12/17 07:43 03/12/17 07:43 03/12/17 07:43 03/12/17 07:43 03/12/17 07:43 - Medications Medications: Current Medications Acetaminophen (Tylenol 325mg Tab) 650 mg PO Q6 PRN PRN Reason: Pain, Mild (1-3) Acetaminophen (Tylenol 325mg Tab) 650 mg PO Q4 PRN PRN Reason: Pain, Mild (1-3) Aspirin (Aspirin Chewable) 81 mg PO DAILY [facility] Last Admin: 03/11/17 08:04 Dose: Not Given Atorvastatin Calcium (Lipitor) 20 mg PO DAILY [facility] Last Admin: 03/11/17 08:05 Dose: Not Given Hydromorphone HCl (Dilaudid) 2 mg IVP Q4 PRN PRN Reason: Pain, severe (8-10) Last Admin: 03/12/17 04:37 Dose: 2 mg Hydromorphone HCl (Dilaudid) 0.5 mg IVP Q10M PRN PRN Reason: Pain, moderate (4-7) Vancomycin HCl 1 gm/ Sodium (Chloride) 250 mls @ 166.667 mls/hr IVPB DAILY [facility] Last Admin: 03/11/17 08:20 Dose: 166.667 mls/hr Cefepime HCl 1 gm/ Sodium (Chloride) 100 mls @ 100 mls/hr IVPB DAILY [facility] Last Admin: 03/11/17 08:19 Dose: 100 mls/hr Sodium Chloride (Sodium Chloride 0.9%) 1,000 mls @ 1,000 mls/hr IV .Q1H [facility] Stop: 03/12/17 11:03 Lactated Ringer's (Lactated Ringer's) 1,000 mls @ 125 mls/hr IV .Q8H [facility] Last Admin: 03/12/17 07:14 Dose: Not Given Insulin Human Lispro (Humalog) 0 units SC ACHS [facility] PRN Reason: Protocol Last Admin: 03/12/17 06:48 Dose: Not Given Metformin HCl (Glucophage) 500 mg PO BID [facility] Last Admin: 03/11/17 16:18 Dose: 500 mg Nicotine (Nicoderm Cq) 1 patch TD DAILY [facility] Last Admin: 03/11/17 10:19 Dose: Not Given Oxycodone/Acetaminophen (Percocet 5/325 Mg Tab) 1 tab PO Q4 PRN PRN Reason: Pain, moderate (4-7) Stop: 03/14/17 14:01 Oxycodone/Acetaminophen (Percocet 5/325 Mg Tab) 2 tab PO Q4 PRN PRN Reason: Pain, severe (8-10) Stop: 03/14/17 14:01 Trazodone HCl (Desyrel) 50 mg PO HS [facility] Last Admin: 03/11/17 22:06 Dose: 50 mg - Labs Labs: 03/12/17 05:15 03/12/17 05:15 PT 11.4 Seconds (9.8-13.1) 03/05/17 05:50 INR 1.1 (0.9-1.2) 03/05/17 05:50 APTT 30.0 Seconds (25.6-37.1) 03/05/17 05:50 - Constitutional Appears: Well, Non-toxic, No Acute Distress - Extremities Exam Additional comments: RLE focused examination: VASC: DP/PT pulses palpable 1/4, CFT 3-4 sec to all digits. TG warm to warm from proximal to distal, +1 pitting edema noted on the dorsum of foot. DERM: Surgical sites noted to distal aspect of 1st and 4th digits. Sutures are intact with no signs of over-tensioning or dehiscence. Skin edges are well- coapted at this time. No malodor, no purulence expressed. No serous drainage or maceration noted. NEURO: Protective sensation mildly diminished ORTHO: Pain on palpation of the distal tip of the 4th digit surgical site. Pain on palpation to hallux surgical site - Neurological Exam Neurological Exam: Alert, Awake, Oriented x3 - Psychiatric Exam Psychiatric exam: Normal Affect, Normal Mood Assessment and Plan - Assessment and Plan (Free Text) Assessment: 61 y/o male 1 day s/p R foot 1st and 4th distal phalanx amputations secondary to osteomyelitis Plan: Pt seen at bedside Discussed plan in detail with attending Dr. Joyce Chart, labs and vitals reviewed- afebrile, WBC 7.8 Cleansed surgical sites with saline Dressing applied to R foot with betadine soaked adaptic and DSD Upon discharge, patient to follow up in [facility] podiatry clinic with Dr. Joyce Should patient return to [facility], pt can also follow up with Dr. Irizarry in [facility] as he is known to their service Podiatry will continue to follow while in house
[2017-03-12] MEDS: Cefepime 1 GM in Sodium Chloride 0.9% 100 ML IVPB SCH (08:55)
--- NOTE | 2017-03-12 17:07 | CP.PCM.PN ---
Subjective - Date & Time of Evaluation Date of Evaluation: 03/12/17 Time of Evaluation: 09:00 - Subjective Subjective: rx in progress Objective - Vital Signs/Intake and Output Vital Signs (last 24 hours): Temp Pulse Resp BP Pulse Ox 99 F 45 L 18 123/60 98 03/12/17 16:06 03/12/17 16:06 03/12/17 16:06 03/12/17 16:06 03/12/17 16:06 - Medications Medications: Current Medications Acetaminophen (Tylenol 325mg Tab) 650 mg PO Q6 PRN PRN Reason: Pain, Mild (1-3) Acetaminophen (Tylenol 325mg Tab) 650 mg PO Q4 PRN PRN Reason: Pain, Mild (1-3) Aspirin (Aspirin Chewable) 81 mg PO DAILY [facility] Last Admin: 03/12/17 08:56 Dose: 81 mg Atorvastatin Calcium (Lipitor) 20 mg PO DAILY [facility] Last Admin: 03/12/17 08:56 Dose: 20 mg Hydromorphone HCl (Dilaudid) 2 mg IVP Q4 PRN PRN Reason: Pain, severe (8-10) Last Admin: 03/12/17 13:12 Dose: 2 mg Hydromorphone HCl (Dilaudid) 0.5 mg IVP Q10M PRN PRN Reason: Pain, moderate (4-7) Vancomycin HCl 1 gm/ Sodium (Chloride) 250 mls @ 166.667 mls/hr IVPB DAILY [facility] Last Admin: 03/12/17 08:55 Dose: 166.667 mls/hr Cefepime HCl 1 gm/ Sodium (Chloride) 100 mls @ 100 mls/hr IVPB DAILY [facility] Last Admin: 03/12/17 08:55 Dose: 100 mls/hr Lactated Ringer's (Lactated Ringer's) 1,000 mls @ 125 mls/hr IV .Q8H [facility] Last Admin: 03/12/17 16:07 Dose: Not Given Insulin Human Lispro (Humalog) 0 units SC ACHS [facility] PRN Reason: Protocol Last Admin: 03/12/17 16:06 Dose: Not Given Metformin HCl (Glucophage) 500 mg PO BID [facility] Last Admin: 03/12/17 16:06 Dose: 500 mg Nicotine (Nicoderm Cq) 1 patch TD DAILY [facility] Last Admin: 03/12/17 08:56 Dose: 1 patch Oxycodone/Acetaminophen (Percocet 5/325 Mg Tab) 1 tab PO Q4 PRN PRN Reason: Pain, moderate (4-7) Stop: 03/14/17 14:01 Oxycodone/Acetaminophen (Percocet 5/325 Mg Tab) 2 tab PO Q4 PRN PRN Reason: Pain, severe (8-10) Stop: 03/14/17 14:01 Trazodone HCl (Desyrel) 50 mg PO HS [facility] Last Admin: 03/11/17 22:06 Dose: 50 mg - Labs Labs: 03/12/17 05:15 03/12/17 05:15 PT 11.4 Seconds (9.8-13.1) 03/05/17 05:50 INR 1.1 (0.9-1.2) 03/05/17 05:50 APTT 30.0 Seconds (25.6-37.1) 03/05/17 05:50 - Constitutional Appears: Non-toxic, Chronically Ill - Head Exam Head Exam: NORMOCEPHALIC - Eye Exam Eye Exam: PERRL - ENT Exam ENT Exam: Mucous Membranes Dry - Neck Exam Neck Exam: absent: Lymphadenopathy - Respiratory Exam Respiratory Exam: Decreased Breath Sounds - Cardiovascular Exam Cardiovascular Exam: REGULAR RHYTHM - GI/Abdominal Exam GI & Abdominal Exam: Distended, Soft - Rectal Exam Rectal Exam: Deferred - Exam Exam: NORMAL INSPECTION - Extremities Exam Extremities Exam: absent: Pedal Edema - Back Exam Back Exam: absent: CVA tenderness (L), CVA tenderness (R) - Neurological Exam Neurological Exam: Alert, Awake Assessment and Plan (1) Diabetic foot infection Status: Acute (2) Diabetes Status: Chronic (3) Bradycardia Status: Acute (4) COPD (chronic obstructive pulmonary disease) Status: Acute (5) Chest pain Status: Acute (6) Depression Status: Acute (7) Diabetic neuropathy Status: Acute (8) Dry gangrene Status: Acute - Assessment and Plan (Free Text) Assessment: s/p amputation iv rx in progress cont same at TCU
[2017-03-12] MEDS: Oxycodone/Acetaminophen 5/325 mg Tab PO PRN (20:30)
--- NOTE | 2017-03-13 00:08 | CP.PCM.PN ---
Subjective - Date & Time of Evaluation Date of Evaluation: 03/12/17 Time of Evaluation: 23:40 Objective - Vital Signs/Intake and Output Vital Signs (last 24 hours): Temp Pulse Resp BP Pulse Ox 99 F 45 L 18 123/60 98 03/12/17 16:06 03/12/17 16:06 03/12/17 16:06 03/12/17 16:06 03/12/17 16:06 - Medications Medications: Current Medications Acetaminophen (Tylenol 325mg Tab) 650 mg PO Q6 PRN PRN Reason: Pain, Mild (1-3) Acetaminophen (Tylenol 325mg Tab) 650 mg PO Q4 PRN PRN Reason: Pain, Mild (1-3) Aspirin (Aspirin Chewable) 81 mg PO DAILY [facility] Last Admin: 03/12/17 08:56 Dose: 81 mg Atorvastatin Calcium (Lipitor) 20 mg PO DAILY [facility] Last Admin: 03/12/17 08:56 Dose: 20 mg Hydromorphone HCl (Dilaudid) 2 mg IVP Q4 PRN PRN Reason: Pain, severe (8-10) Last Admin: 03/12/17 18:56 Dose: 2 mg Hydromorphone HCl (Dilaudid) 0.5 mg IVP Q10M PRN PRN Reason: Pain, moderate (4-7) Vancomycin HCl 1 gm/ Sodium (Chloride) 250 mls @ 166.667 mls/hr IVPB DAILY [facility] Last Admin: 03/12/17 08:55 Dose: 166.667 mls/hr Cefepime HCl 1 gm/ Sodium (Chloride) 100 mls @ 100 mls/hr IVPB DAILY [facility] Last Admin: 03/12/17 08:55 Dose: 100 mls/hr Lactated Ringer's (Lactated Ringer's) 1,000 mls @ 125 mls/hr IV .Q8H [facility] Last Admin: 03/12/17 16:07 Dose: Not Given Insulin Human Lispro (Humalog) 0 units SC ACHS [facility] PRN Reason: Protocol Last Admin: 03/12/17 23:31 Dose: Not Given Metformin HCl (Glucophage) 500 mg PO BID [facility] Last Admin: 03/12/17 16:06 Dose: 500 mg Nicotine (Nicoderm Cq) 1 patch TD DAILY [facility] Last Admin: 03/12/17 08:56 Dose: 1 patch Oxycodone/Acetaminophen (Percocet 5/325 Mg Tab) 1 tab PO Q4 PRN PRN Reason: Pain, moderate (4-7) Stop: 03/14/17 14:01 Oxycodone/Acetaminophen (Percocet 5/325 Mg Tab) 2 tab PO Q4 PRN PRN Reason: Pain, severe (8-10) Stop: 03/14/17 14:01 Last Admin: 03/12/17 20:30 Dose: 2 tab Trazodone HCl (Desyrel) 50 mg PO HS [facility] Last Admin: 03/12/17 21:37 Dose: 50 mg - Labs Labs: 03/12/17 05:15 03/12/17 05:15 PT 11.4 Seconds (9.8-13.1) 03/05/17 05:50 INR 1.1 (0.9-1.2) 03/05/17 05:50 APTT 30.0 Seconds (25.6-37.1) 03/05/17 05:50 Assessment and Plan (1) Diabetic foot infection Status: Acute
[2017-03-13] MEDS: Lactated Ringer's 1,000 ML IV SCH ×3 (07:05→21:37)
[2017-03-13 07:39] VITALS: RESP 18
--- NOTE | 2017-03-13 07:58 | CP.PCM.PN ---
Subjective - Date & Time of Evaluation Date of Evaluation: 03/13/17 Time of Evaluation: 07:59 - Subjective Subjective: Podiatry Progress Note - Dr. Joyce 61 y/o male patient seen at bedside 2 days s/p R foot 1st and 4th distal phalanx amputations. Patient is seen resting comfortably in bed, AAOx3 and NAD. Patient denies any acute events overnight. Patient admits to mild-moderate pain in the toes following surgery and says he has a high tolerance for pain meds, so they aren't providing significant relief. However, patient states he is able to sleep through the night comfortably after taking his pain medication. Patient denies N/V/F/D/C/SOB/calf pain. Pt has no other pedal complaints at this time. Objective - Vital Signs/Intake and Output Vital Signs (last 24 hours): Temp Pulse Resp BP Pulse Ox 98.5 F 53 L 18 157/52 H 99 03/13/17 07:38 03/13/17 07:38 03/13/17 07:38 03/13/17 07:38 03/13/17 07:38 - Medications Medications: Current Medications Acetaminophen (Tylenol 325mg Tab) 650 mg PO Q6 PRN PRN Reason: Pain, Mild (1-3) Acetaminophen (Tylenol 325mg Tab) 650 mg PO Q4 PRN PRN Reason: Pain, Mild (1-3) Aspirin (Aspirin Chewable) 81 mg PO DAILY [facility] Last Admin: 03/12/17 08:56 Dose: 81 mg Atorvastatin Calcium (Lipitor) 20 mg PO DAILY [facility] Last Admin: 03/12/17 08:56 Dose: 20 mg Hydromorphone HCl (Dilaudid) 2 mg IVP Q4 PRN PRN Reason: Pain, severe (8-10) Last Admin: 03/13/17 00:38 Dose: 2 mg Hydromorphone HCl (Dilaudid) 0.5 mg IVP Q10M PRN PRN Reason: Pain, moderate (4-7) Vancomycin HCl 1 gm/ Sodium (Chloride) 250 mls @ 166.667 mls/hr IVPB DAILY [facility] Last Admin: 03/12/17 08:55 Dose: 166.667 mls/hr Cefepime HCl 1 gm/ Sodium (Chloride) 100 mls @ 100 mls/hr IVPB DAILY [facility] Last Admin: 03/12/17 08:55 Dose: 100 mls/hr Lactated Ringer's (Lactated Ringer's) 1,000 mls @ 125 mls/hr IV .Q8H [facility] Last Admin: 03/13/17 07:05 Dose: Not Given Insulin Human Lispro (Humalog) 0 units SC ACHS [facility] PRN Reason: Protocol Last Admin: 03/12/17 23:31 Dose: Not Given Metformin HCl (Glucophage) 500 mg PO BID [facility] Last Admin: 03/12/17 16:06 Dose: 500 mg Nicotine (Nicoderm Cq) 1 patch TD DAILY [facility] Last Admin: 03/12/17 08:56 Dose: 1 patch Oxycodone/Acetaminophen (Percocet 5/325 Mg Tab) 1 tab PO Q4 PRN PRN Reason: Pain, moderate (4-7) Stop: 03/14/17 14:01 Oxycodone/Acetaminophen (Percocet 5/325 Mg Tab) 2 tab PO Q4 PRN PRN Reason: Pain, severe (8-10) Stop: 03/14/17 14:01 Last Admin: 03/12/17 20:30 Dose: 2 tab Trazodone HCl (Desyrel) 50 mg PO HS [facility] Last Admin: 03/12/17 21:37 Dose: 50 mg - Labs Labs: 03/12/17 05:15 03/12/17 05:15 PT 11.4 Seconds (9.8-13.1) 03/05/17 05:50 INR 1.1 (0.9-1.2) 03/05/17 05:50 APTT 30.0 Seconds (25.6-37.1) 03/05/17 05:50 - Constitutional Appears: Well, Non-toxic, No Acute Distress - Extremities Exam Additional comments: RLE focused examination: VASC: DP/PT pulses palpable 1/4, CFT 3-4 sec to all digits. TG warm to warm from proximal to distal, +1 pitting edema noted on the dorsum of foot. DERM: Surgical sites noted to distal aspect of 1st and 4th digits. Sutures are intact with no signs of over-tensioning or dehiscence. Skin edges are well- coapted at this time. No malodor, no purulence expressed. No serous drainage or maceration noted. NEURO: Protective sensation mildly diminished ORTHO: Pain on palpation of the distal tip of the 4th digit surgical site. Minimal to no tenderness on palpation to hallux surgical site - Neurological Exam Neurological Exam: Alert, Awake, Oriented x3 - Psychiatric Exam Psychiatric exam: Normal Affect, Normal Mood Assessment and Plan - Assessment and Plan (Free Text) Assessment: 61 y/o male 2 days s/p R foot 1st and 4th distal phalanx amputations secondary to osteomyelitis Plan: Pt seen at bedside Discussed plan in detail with attending Dr. Joyce Chart, labs and vitals reviewed- afebrile, WBC 7.8 Cleansed surgical sites with saline Dressing applied to R foot with betadine soaked adaptic and DSD Pt to receive 7-14 days of IV abx in house and will likely be transferred to TCU - podiatry will continue to follow and proceed with daily dressing changes Pt to possibly go to [facility] following completion of IV abx Upon discharge, patient to follow up in [facility] podiatry clinic with Dr. Joyce Should patient return to [facility], pt can also follow up with Dr. Irizarry in Wound care center as he is known to their service
[2017-03-13] MEDS: Insulin Lispro (humaLOG) 100 Units/ml Inj SC SCH ×4 (08:53→21:20)
[2017-03-13] MEDS: Cefepime 1 GM in Sodium Chloride 0.9% 100 ML IVPB SCH (08:53)
[2017-03-13] MEDS: Oxycodone/Acetaminophen 5/325 mg Tab PO PRN ×3 (12:24→20:51)
--- NOTE | 2017-03-13 12:47 | CP.PCM.PCO ---
Assessment/Plan - Assessment/Plan Assessment (Free Text): Pt stable. Seen and cleeared for transfer to TCU by[address] Oneal. Per Dr. Temple, pt to continue same IV antibiotics for 7 days post surgery for toe amputation. Pt will complete 5 more days of IV abx in TCU - Problems Patient Problems: Problem List (Active/Current) Problem Status Onset Code Diabetic foot infection Acute E11.69, L08.9 Diabetes Chronic E11.9
--- NOTE | 2017-03-13 14:00 | CP.PCM.PN ---
Subjective - Date & Time of Evaluation Date of Evaluation: 03/13/17 Time of Evaluation: 10:00 - Subjective Subjective: improved rx in progress Objective - Vital Signs/Intake and Output Vital Signs (last 24 hours): Temp Pulse Resp BP Pulse Ox 98.5 F 53 L 18 157/52 H 99 03/13/17 07:38 03/13/17 07:38 03/13/17 07:38 03/13/17 07:38 03/13/17 07:38 - Medications Medications: Current Medications Acetaminophen (Tylenol 325mg Tab) 650 mg PO Q6 PRN PRN Reason: Pain, Mild (1-3) Acetaminophen (Tylenol 325mg Tab) 650 mg PO Q4 PRN PRN Reason: Pain, Mild (1-3) Aspirin (Aspirin Chewable) 81 mg PO DAILY [facility] Last Admin: 03/13/17 08:52 Dose: 81 mg Atorvastatin Calcium (Lipitor) 20 mg PO DAILY [facility] Last Admin: 03/13/17 08:53 Dose: 20 mg Hydromorphone HCl (Dilaudid) 0.5 mg IVP Q10M PRN PRN Reason: Pain, moderate (4-7) Vancomycin HCl 1 gm/ Sodium (Chloride) 250 mls @ 166.667 mls/hr IVPB DAILY [facility] Last Admin: 03/13/17 08:54 Dose: 166.667 mls/hr Cefepime HCl 1 gm/ Sodium (Chloride) 100 mls @ 100 mls/hr IVPB DAILY [facility] Last Admin: 03/13/17 08:53 Dose: 100 mls/hr Lactated Ringer's (Lactated Ringer's) 1,000 mls @ 125 mls/hr IV .Q8H [facility] Last Admin: 03/13/17 07:05 Dose: Not Given Insulin Human Lispro (Humalog) 0 units SC ACHS [facility] PRN Reason: Protocol Last Admin: 03/13/17 12:23 Dose: 2 units Metformin HCl (Glucophage) 500 mg PO BID [facility] Last Admin: 03/13/17 08:52 Dose: 500 mg Nicotine (Nicoderm Cq) 1 patch TD DAILY [facility] Last Admin: 03/13/17 08:54 Dose: 1 patch Oxycodone/Acetaminophen (Percocet 5/325 Mg Tab) 1 tab PO Q4 PRN PRN Reason: Pain, moderate (4-7) Stop: 03/14/17 14:01 Oxycodone/Acetaminophen (Percocet 5/325 Mg Tab) 2 tab PO Q4 PRN PRN Reason: Pain, severe (8-10) Stop: 03/14/17 14:01 Last Admin: 03/13/17 12:24 Dose: 2 tab Trazodone HCl (Desyrel) 50 mg PO HS [facility] Last Admin: 03/12/17 21:37 Dose: 50 mg - Labs Labs: 03/12/17 05:15 03/12/17 05:15 PT 11.4 Seconds (9.8-13.1) 03/05/17 05:50 INR 1.1 (0.9-1.2) 03/05/17 05:50 APTT 30.0 Seconds (25.6-37.1) 03/05/17 05:50 - Constitutional Appears: Non-toxic, Chronically Ill - Head Exam Head Exam: NORMOCEPHALIC - Eye Exam Eye Exam: PERRL - ENT Exam ENT Exam: Mucous Membranes Dry - Neck Exam Neck Exam: absent: Lymphadenopathy - Respiratory Exam Respiratory Exam: Decreased Breath Sounds - Cardiovascular Exam Cardiovascular Exam: REGULAR RHYTHM - GI/Abdominal Exam GI & Abdominal Exam: Distended Assessment and Plan (1) Diabetic foot infection Status: Acute (2) Diabetes Status: Chronic (3) Bradycardia Status: Acute (4) COPD (chronic obstructive pulmonary disease) Status: Acute (5) Chest pain Status: Acute (6) Depression Status: Acute (7) Diabetic neuropathy Status: Acute (8) Dry gangrene Status: Acute
[2017-03-13 16:50] VITALS: BP 147/65; PULSE 40; TEMP 98.7; O2SAT 100
[2017-03-13] MEDS ORDERED: Povidone Iodine Topical 10% Sol TOP ONE (17:09)
== END 2017-03-13 21:37 | DRG 617 ==
LOC: H.ER 09:48 → H.ERHOLD 10:16 → H.MEDSURG1 12:33
PROVIDERS: ADMIT Internal Medicine; ATTEND Internal Medicine
PROC: B40DYZZ Plain Radiography of Aorta and Bilateral Lower Extremity Arteries using Other Contrast (ICD-10-PCS; 2017-03-05)
PROC: 0Y6P0Z3 Detachment at Right 1st Toe, Low, Open Approach (ICD-10-PCS; 2017-03-11)
PROC: 0Y6V0Z3 Detachment at Right 4th Toe, Low, Open Approach (ICD-10-PCS; principal; 2017-03-11 12:30)
DX: E11.69 Type 2 diabetes mellitus with other specified complication (principal); E11.52 Type 2 diabetes mellitus with diabetic peripheral angiopathy with gangrene; M86.171 Other acute osteomyelitis, right ankle and foot; E11.40 Type 2 diabetes mellitus with diabetic neuropathy, unspecified; E11.628 Type 2 diabetes mellitus with other skin complications; E78.00 Pure hypercholesterolemia, unspecified; F17.210 Nicotine dependence, cigarettes, uncomplicated; F32.9 Major depressive disorder, single episode, unspecified; I10 Essential (primary) hypertension; I25.10 Atherosclerotic heart disease of native coronary artery without angina pectoris; I73.9 Peripheral vascular disease, unspecified; J44.9 Chronic obstructive pulmonary disease, unspecified; L03.031 Cellulitis of right toe; Z85.46 Personal history of malignant neoplasm of prostate; Z89.512 Acquired absence of left leg below knee; Z95.1 Presence of aortocoronary bypass graft; Z86.19 Personal history of other infectious and parasitic diseases; D64.9 Anemia, unspecified; F41.9 Anxiety disorder, unspecified; R60.0 Localized edema; Z79.84 Long term (current) use of oral hypoglycemic drugs; M79.676 Pain in unspecified toe(s); R00.1 Bradycardia, unspecified

== ENCOUNTER 2017-03-13 13:07 | Inpatient (IN) | payer OTHER ==
[2017-03-13 21:46] VITALS: BMI 26.3
[2017-03-13 22:04] VITALS: RESP 20
[2017-03-13] MEDS ORDERED: Oxycodone/Acetaminophen 5/325 mg Tab PO PRN (22:11)
[2017-03-14] MEDS: Insulin Lispro (humaLOG) 100 Units/ml Inj SC SCH ×3 (06:41→16:35)
[2017-03-14] MEDS: Oxycodone/Acetaminophen 5/325 mg Tab PO PRN ×3 (07:03→22:02)
[2017-03-14] MEDS ORDERED: Patient's Own Med (Vancomycin 1 Gm [Vancomycin 1gm In Normal Saline Addvantage] 1 GM) IVPB SCH (09:00)
[2017-03-14] MEDS ORDERED: Patient's Own Med (Cefepime 1gm In Ns 100ml [Maxipime 1gm] 1 GM) IVPB SCH (09:00)
[2017-03-14] MEDS: Cefepime 1 GM in Sodium Chloride 0.9% 100 ML IVPB SCH (09:01)
--- NOTE | 2017-03-14 10:23 | RAD ---
PROCEDURE: CHEST RADIOGRAPH, 1 VIEW HISTORY: Infected right foot COMPARISON: 02/28/2017. FINDINGS: LUNGS: Clear. PLEURA: No pneumothorax or pleural fluid seen. CARDIOVASCULAR: Cardiomegaly. No evidence of acute, significant cardiovascular disease. Incidental Finding(s): Postoperative changes related to sternotomy. OSSEOUS STRUCTURES: No significant abnormalities. VISUALIZED UPPER ABDOMEN: Normal. OTHER FINDINGS: None. IMPRESSION: No active disease. No acute/significant interval changes.
--- NOTE | 2017-03-14 11:29 | CP.PCM.PN ---
Subjective - Date & Time of Evaluation Date of Evaluation: 03/14/17 Time of Evaluation: 11:27 - Subjective Subjective: Podiatry Progress Note - Dr. Joyce 61 year old male seen at bedside 3 days s/p R foot 1st and 4th distal phalanx amputations. Patient is seen resting comfortably in bed, AAOx3 and NAD. Patient denies any acute events overnight. Patient admits to tenderness on palpation of the surgical sites. Patient denies N/V/F/D/C/SOB/calf pain. Pt has no other pedal complaints at this time. Objective - Vital Signs/Intake and Output Vital Signs (last 24 hours): Temp Pulse Resp BP Pulse Ox 98.2 F 45 L 20 167/81 H 98 03/14/17 08:25 03/14/17 08:25 03/14/17 08:25 03/14/17 08:25 03/14/17 08:25 - Medications Medications: Current Medications Acetaminophen (Tylenol 325mg Tab) 650 mg PO Q6 PRN PRN Reason: Pain, Mild (1-3) Aspirin (Aspirin Chewable) 81 mg PO DAILY [facility] Last Admin: 03/14/17 09:01 Dose: 81 mg Atorvastatin Calcium (Lipitor) 20 mg PO DAILY [facility] Last Admin: 03/14/17 09:01 Dose: 20 mg Cefepime HCl 1 gm/ Sodium (Chloride) 100 mls @ 100 mls/hr IVPB DAILY [facility] Last Admin: 03/14/17 09:01 Dose: 100 mls/hr Vancomycin HCl 1 gm/ Sodium (Chloride) 250 mls @ 166.667 mls/hr IVPB DAILY [facility] Last Admin: 03/14/17 09:03 Dose: 166.667 mls/hr Insulin Human Lispro (Humalog) 0 units SC ACHS [facility] PRN Reason: Protocol Last Admin: 03/14/17 06:41 Dose: Not Given Metformin HCl (Glucophage) 500 mg PO BID [facility] Last Admin: 03/14/17 09:01 Dose: 500 mg Nicotine (Nicoderm Cq) 1 patch TD DAILY [facility] Last Admin: 03/14/17 09:01 Dose: 1 patch Oxycodone/Acetaminophen (Percocet 5/325 Mg Tab) 1 tab PO Q4 PRN PRN Reason: Pain, moderate (4-7) Stop: 03/16/17 22:12 Oxycodone/Acetaminophen (Percocet 5/325 Mg Tab) 2 tab PO Q4 PRN PRN Reason: Pain, severe (8-10) Stop: 03/16/17 22:12 Last Admin: 03/14/17 07:03 Dose: 2 tab Povidone Iodine (Betadine 10% Topical Soln) 473 ml TOP DAILY [facility] Trazodone HCl (Desyrel) 50 mg PO HS [facility] - Constitutional Appears: Non-toxic, No Acute Distress - Extremities Exam Additional comments: Right lower extremity focused examination: VASC: DP and PT pulses palpable 1/4, CFT 3-4 sec to all digits. TG warm to warm from proximal to distal, +1 pitting edema noted on the dorsum of foot. DERM: Surgical sites noted to distal aspect of 1st and 4th digits. Sutures are intact with no signs of over-tensioning or dehiscence. Skin edges are well- coapted at this time. No malodor, no purulence expressed. No serous drainage or maceration noted. NEURO: Protective sensation diminished ORTHO: Tenderness on palpation of the distal tip of the 1st and 4th digit surgical site. - Neurological Exam Neurological Exam: Alert, Awake, Oriented x3 - Psychiatric Exam Psychiatric exam: Normal Affect, Normal Mood Assessment and Plan - Assessment and Plan (Free Text) Assessment: 61 y/o male 3 days s/p R foot 1st and 4th distal phalanx amputations secondary to osteomyelitis Plan: Patient examined and evaluated Discussed plan in detail with attending Dr. Joyce Chart, labs and vitals reviewed- afebrile Dressing applied to R foot with betadine soaked adaptic and DSD Patient to cont IV abx per ID Upon discharge, patient to follow up in [facility] podiatry clinic with Dr. Joyce Should patient return to [facility], pt can also follow up with Dr. Irizarry in Wound care center as he is known to their service
[2017-03-14] MEDS: Povidone Iodine Topical 10% Sol TOP SCH (11:50)
--- NOTE | 2017-03-14 23:38 | CP.PCM.HP ---
Past Patient History - Infectious Disease Hx of Infectious Diseases: None - Tetanus Immunizations Tetanus Immunization: Up to Date (07/2014) - Past Medical History & Family History Past Medical History?: Yes - Past Social History Smoking Status: Heavy Smoker > 10 Cigarettes Daily - CARDIAC Hx Cardiac Disorders: Yes Hx Hypercholesterolemia: Yes Hx Hypertension: Yes - PULMONARY Hx Respiratory Disorders: Yes Other/Comment: smokes 1 pack per day - NEUROLOGICAL Hx Neurological Disorder: No Hx Alzheimer's Disease: No - HEENT Hx HEENT Problems: No - RENAL Hx Chronic Kidney Disease: No - ENDOCRINE/METABOLIC Hx Diabetes Mellitus Type 2: Yes - HEMATOLOGICAL/ONCOLOGICAL Hx Blood Disorders: Yes (ANEMIA) Hx AIDS: No Hx Anemia: Yes Hx Cancer: Yes (PROSTATE) Hx Hepatitis C: Yes Hx Human Immunodeficiency Virus (HIV): No - INTEGUMENTARY Hx Dermatological Problems: Yes (SKIN DISCOLORATION) Other/Comment: l bka,rt 3RD,4TH TOES AND grt TOE - MUSCULOSKELETAL/RHEUMATOLOGICAL Hx Musculoskeletal Disorders: Yes (degenerative disorder) Hx Falls: No Hx Osteomyelitis: Yes - GASTROINTESTINAL Hx Gastrointestinal Disorders: No - GENITOURINARY/GYNECOLOGICAL Hx Genitourinary Disorders: Yes (Prostate CA) Hx Prostate Cancer: Yes Hx Prostate Problems: Yes - PSYCHIATRIC Hx Psychophysiologic Disorder: Yes (anxiety) Hx Anxiety: Yes Hx Substance Use: No - SURGICAL HISTORY Hx Surgeries: Yes Hx Amputation: Yes (LBKA) Hx Coronary Artery Bypass Graft: Yes (x 3) Hx Femoral-Popliteal Bypass Graft: Yes - ANESTHESIA Hx Anesthesia: Yes Hx Anesthesia Reactions: No Hx Malignant Hyperthermia: No Meds Allergies/Adverse Reactions: Allergies Allergy/AdvReac Type Severity Reaction Status Date / Time No Known Allergies Allergy Verified 02/28/17 10:00 Results - Vital Signs Recent Vital Signs: Last Vital Signs Temp 96.0 F L 03/14/17 21:07 Pulse 60 03/14/17 21:07 Resp 20 03/14/17 21:07 BP 183/57 H 03/14/17 21:07 Pulse Ox 100 03/14/17 21:07 - Labs Labs: Laboratory Results - last 24 hr 03/14/17 03/14/17 03/14/17 05:40 10:46 16:15 POC Glucose (mg/dL) 98 163 H 119 H 03/14/17 20:11 POC Glucose (mg/dL) 181 H
[2017-03-15] MEDS: Insulin Lispro (humaLOG) 100 Units/ml Inj SC SCH ×5 (05:14→22:15)
[2017-03-15] MEDS: Oxycodone/Acetaminophen 5/325 mg Tab PO PRN ×4 (06:54→20:57)
[2017-03-15] MEDS: Povidone Iodine Topical 10% Sol TOP SCH (08:44)
[2017-03-15] MEDS: Cefepime 1 GM in Sodium Chloride 0.9% 100 ML IVPB SCH (08:58)
--- NOTE | 2017-03-15 12:28 | CP.PCM.CON ---
History of Present Illness - History of Present Illness History of Present Illness: 61 year old male seen at bedside 3 days s/p R foot 1st and 4th distal phalanx amputations. Patient is seen resting comfortably in bed, AAOx3 and NAD. Patient denies any acute events overnight. Patient admits to tenderness on palpation of the surgical sites. Patient denies N/V/F/D/C/SOB/calf pain. Pt has no other pedal complaints at this time. Review of Systems - Constitutional Constitutional: As Per HPI - EENT Eyes: absent: As Per HPI, Blind Spots, Blurred Vision, Change in Vision, Decreased Night Vision, Diplopia, Discharge, Dry Eye, Exophthalmos, Floaters, Irritation, Itchy Eyes, Loss of Peripheral Vision, Pain, Photophobia, Requires Corrective Lenses, Sees Flashes, Spots in Vision, Tunnel Vision, Other Visual Disturbances, Loss of Vision, Other Ears: absent: As Per HPI, Decreased Hearing, Ear Discharge, Ear Pain, Tinnitus, Abnormal Hearing, Disequilibrium, Dizziness, Other Nose/Mouth/Throat: absent: As Per HPI, Epistaxis, Nasal Congestion, Nasal Discharge, Nasal Obstruction, Nasal Trauma, Nose Pain, Post Nasal Drip, Sinus Pain, Sinus Pressure, Bleeding Gums, Change in Voice, Dental Pain, Dry Mouth, Dysphagia, Halitosis, Hoarsness, Lip Swelling, Mouth Lesions, Mouth Pain, Odynophagia, Sore Throat, Throat Swelling, Tongue Swelling, Facial Pain, Neck Pain, Neck Mass, Other - Cardiovascular Cardiovascular: absent: As Per HPI, Acrocyanosis, Chest Pain, Chest Pain at Rest , Chest Pain with Activity, Claudication, Diaphoresis, Dyspnea, Dyspnea on Exertion, Edema, Irregular Heart Rhythm, Pain Radiating to Arm/Neck/Jaw, Leg Edema, Leg Ulcers, Lightheadedness, Orthopnea, Palpitations, Paroxysmal Nocturnal Dyspnea, Pedal Edema, Radiating Pain, Rapid Heart Rate, Slow Heart Rate, Syncope, Other - Respiratory Respiratory: absent: As Per HPI, Cough, Dyspnea, Hemoptysis, Dyspnea on Exertion , Wheezing, Snoring, Stridor, Pain on Inspiration, Chest Congestion, Excessive Mucous Production, Change in Mucous Color, Pain with Coughing, Other - Gastrointestinal Gastrointestinal: absent: As Per HPI, Abdominal Pain, Belching, Bloating, Change in Bowel Habits, Change in Stool Character, Coffee Ground Emesis, Constipation, Cramping, Diarrhea, Dyspepsia, Dysphagia, Early Satiety, Excessive Flatus, Fecal Incontinence, Heartburn, Hematemesis, Hematochezia, Loose Stools, Melena, Nausea, Odynophagia, Temesmus, Vomiting, Other - Genitourinary Genitourinary: absent: As Per HPI, Change in Urinary Stream, Difficulty Urinating, Dysuria, Flank Pain, Hematuria, Pyuria, Nocturia, Urinary Incontinence, Urinary Frequency, Urinary Hesitance, Urinary Urgency, Voiding Freq/Small Amts, Freq UTI, Hx Renal/Bladder Calculi, Hx /Renal Surgery, Bladder Distension, Other - Musculoskeletal Musculoskeletal: As Per HPI - Integumentary Integumentary: As Per HPI, Skin Pain, Wounds - Neurological Neurological: absent: As Per HPI, Abnormal Gait, Abnormal Hearing, Abnormal Movements, Abnormal Speech, Behavioral Changes, Burning Sensations, Confusion, Convulsions, Disequilibrium, Dizziness, Numbness, Focal Weakness, Frequent Falls , Headaches, Lack of Coordination, Loss of Vision, Memory Loss, Paresthesias, Radicular Pain, Restless Legs, Sensory Deficit, Syncope, Tingling, Tremor, Vertigo, Weakness, Other Visual Disturbances, Other - Psychiatric Psychiatric: absent: As Per HPI, Abnormal Sleep Pattern, Anhedonia, Anxiety, Auditory Hallucinations, Behavioral Changes, Change in Appetite, Change in Libido, Confusion, Depression, Difficulty Concentrating, Hallucinations, Homicidal Ideation, Hopelessness, Irritability, Memory Loss, Mood Swings, Panic Attacks, Paranoia, Suicidal Ideation, Visual Hallucinations, Tactile Hallucinations, Other - Endocrine Endocrine: absent: As Per HPI, Change in Body Appearance, Change in Libido, Cold Intolorance, Deepening of Voice, Excessive Sweating, Fatigue, Flushing, Heat Intolorance, Increase in Ring/Shoe/Hat Size, Palpitations, Polydipsia, Polyphagia, Polyuria, Other - Hematologic/Lymphatic Hematologic: absent: As Per HPI, Easy Bleeding, Easy Bruising, Lymphadenopathy, Other Past Patient History - Infectious Disease Hx of Infectious Diseases: None - Tetanus Immunizations Tetanus Immunization: Up to Date (07/2014) - Past Medical History & Family History Past Medical History?: Yes - Past Social History Smoking Status: Heavy Smoker > 10 Cigarettes Daily - CARDIAC Hx Cardiac Disorders: Yes Hx Hypercholesterolemia: Yes Hx Hypertension: Yes - PULMONARY Hx Respiratory Disorders: Yes Other/Comment: smokes 1 pack per day - NEUROLOGICAL Hx Neurological Disorder: No Hx Alzheimer's Disease: No - HEENT Hx HEENT Problems: No - RENAL Hx Chronic Kidney Disease: No - ENDOCRINE/METABOLIC Hx Diabetes Mellitus Type 2: Yes - HEMATOLOGICAL/ONCOLOGICAL Hx Blood Disorders: Yes (ANEMIA) Hx AIDS: No Hx Anemia: Yes Hx Cancer: Yes (PROSTATE) Hx Hepatitis C: Yes Hx Human Immunodeficiency Virus (HIV): No - INTEGUMENTARY Hx Dermatological Problems: Yes (SKIN DISCOLORATION) Other/Comment: l bka,rt 3RD,4TH TOES AND grt TOE - MUSCULOSKELETAL/RHEUMATOLOGICAL Hx Musculoskeletal Disorders: Yes (degenerative disorder) Hx Falls: No Hx Osteomyelitis: Yes - GASTROINTESTINAL Hx Gastrointestinal Disorders: No - GENITOURINARY/GYNECOLOGICAL Hx Genitourinary Disorders: Yes (Prostate CA) Hx Prostate Cancer: Yes Hx Prostate Problems: Yes - PSYCHIATRIC Hx Psychophysiologic Disorder: Yes (anxiety) Hx Anxiety: Yes Hx Substance Use: No - SURGICAL HISTORY Hx Surgeries: Yes Hx Amputation: Yes (LBKA) Hx Coronary Artery Bypass Graft: Yes (x 3) Hx Femoral-Popliteal Bypass Graft: Yes - ANESTHESIA Hx Anesthesia: Yes Hx Anesthesia Reactions: No Hx Malignant Hyperthermia: No Meds Allergies/Adverse Reactions: Allergies Allergy/AdvReac Type Severity Reaction Status Date / Time No Known Allergies Allergy Verified 02/28/17 10:00 - Medications Medications: Current Medications Acetaminophen (Tylenol 325mg Tab) 650 mg PO Q6 PRN PRN Reason: Pain, Mild (1-3) Aspirin (Aspirin Chewable) 81 mg PO DAILY [facility] Last Admin: 03/15/17 08:43 Dose: 81 mg Atorvastatin Calcium (Lipitor) 20 mg PO DAILY [facility] Last Admin: 03/15/17 08:44 Dose: 20 mg Cefepime HCl 1 gm/ Sodium (Chloride) 100 mls @ 100 mls/hr IVPB DAILY [facility] Last Admin: 03/15/17 08:58 Dose: 100 mls/hr Vancomycin HCl 1 gm/ Sodium (Chloride) 250 mls @ 166.667 mls/hr IVPB DAILY@ 1700 [facility] Insulin Human Lispro (Humalog) 0 units SC ACHS [facility] PRN Reason: Protocol Last Admin: 03/15/17 12:20 Dose: 3 units Metformin HCl (Glucophage) 500 mg PO BID [facility] Last Admin: 03/15/17 08:43 Dose: 500 mg Nicotine (Nicoderm Cq) 1 patch TD DAILY [facility] Last Admin: 03/15/17 08:43 Dose: 1 patch Oxycodone/Acetaminophen (Percocet 5/325 Mg Tab) 1 tab PO Q4 PRN PRN Reason: Pain, moderate (4-7) Stop: 03/16/17 22:12 Oxycodone/Acetaminophen (Percocet 5/325 Mg Tab) 2 tab PO Q4 PRN PRN Reason: Pain, severe (8-10) Stop: 03/16/17 22:12 Last Admin: 03/15/17 12:20 Dose: 2 tab Povidone Iodine (Betadine 10% Topical Soln) 473 ml TOP DAILY [facility] Last Admin: 03/15/17 08:44 Dose: Not Given Trazodone HCl (Desyrel) 50 mg PO HS [facility] Last Admin: 03/14/17 21:52 Dose: 50 mg Physical Exam - Constitutional Appears: Non-toxic, Cachectic, Chronically Ill - Head Exam Head Exam: NORMOCEPHALIC - Eye Exam Eye Exam: PERRL. absent: Scleral icterus - ENT Exam ENT Exam: Mucous Membranes Dry - Neck Exam Neck exam: Negative for: Lymphadenopathy - Respiratory Exam Respiratory Exam: Decreased Breath Sounds, Rhonchi - Cardiovascular Exam Cardiovascular Exam: REGULAR RHYTHM, +S1, +S2 - GI/Abdominal Exam GI & Abdominal Exam: Diminished Bowel Sounds, Soft. absent: Tenderness - Rectal Exam Rectal Exam: Deferred - Exam Exam: NORMAL INSPECTION - Extremities Exam Extremities exam: Positive for: pedal pulses present. Negative for: calf tenderness, pedal edema, tenderness Additional comments: LEFT BKA RIGHT FOOT WOUND C/D/I - Back Exam Back exam: absent: CVA tenderness (L), CVA tenderness (R) - Neurological Exam Neurological exam: Alert, CN II-XII Intact, Oriented x3, Reflexes Normal - Psychiatric Exam Psychiatric exam: Normal Mood - Skin Skin Exam: Dry, Intact Results - Vital Signs Recent Vital Signs: Last Vital Signs Temp 97.3 F L 03/15/17 09:34 Pulse 42 L 03/15/17 09:34 Resp 20 03/15/17 09:34 BP 182/72 H 03/15/17 09:34 Pulse Ox 100 03/15/17 09:34 - Labs Labs: Laboratory Results - last 24 hr 03/14/17 03/14/17 03/15/17 16:15 20:11 04:13 POC Glucose (mg/dL) 119 H 181 H 104 03/15/17 10:55 POC Glucose (mg/dL) 210 H Assessment & Plan (1) Gangrene Status: Acute - Assessment and Plan (Free Text) Assessment: S/P AMP OF DIGITS 2 AND 4 PAIN LESS CONT IV RX FOR 7 DAYS POST AMP
--- NOTE | 2017-03-15 12:35 | CP.PCM.PN ---
Subjective - Date & Time of Evaluation Date of Evaluation: 03/15/17 Time of Evaluation: 12:35 Objective - Vital Signs/Intake and Output Vital Signs (last 24 hours): Temp Pulse Resp BP Pulse Ox 97.3 F L 42 L 20 182/72 H 100 03/15/17 09:34 03/15/17 09:34 03/15/17 09:34 03/15/17 09:34 03/15/17 09:34 - Medications Medications: Current Medications Acetaminophen (Tylenol 325mg Tab) 650 mg PO Q6 PRN PRN Reason: Pain, Mild (1-3) Aspirin (Aspirin Chewable) 81 mg PO DAILY [facility] Last Admin: 03/15/17 08:43 Dose: 81 mg Atorvastatin Calcium (Lipitor) 20 mg PO DAILY [facility] Last Admin: 03/15/17 08:44 Dose: 20 mg Cefepime HCl 1 gm/ Sodium (Chloride) 100 mls @ 100 mls/hr IVPB DAILY [facility] Last Admin: 03/15/17 08:58 Dose: 100 mls/hr Vancomycin HCl 1 gm/ Sodium (Chloride) 250 mls @ 166.667 mls/hr IVPB DAILY@ 1700 [facility] Insulin Human Lispro (Humalog) 0 units SC ACHS [facility] PRN Reason: Protocol Last Admin: 03/15/17 12:20 Dose: 3 units Metformin HCl (Glucophage) 500 mg PO BID [facility] Last Admin: 03/15/17 08:43 Dose: 500 mg Nicotine (Nicoderm Cq) 1 patch TD DAILY [facility] Last Admin: 03/15/17 08:43 Dose: 1 patch Oxycodone/Acetaminophen (Percocet 5/325 Mg Tab) 1 tab PO Q4 PRN PRN Reason: Pain, moderate (4-7) Stop: 03/16/17 22:12 Oxycodone/Acetaminophen (Percocet 5/325 Mg Tab) 2 tab PO Q4 PRN PRN Reason: Pain, severe (8-10) Stop: 03/16/17 22:12 Last Admin: 03/15/17 12:20 Dose: 2 tab Povidone Iodine (Betadine 10% Topical Soln) 473 ml TOP DAILY [facility] Last Admin: 03/15/17 08:44 Dose: Not Given Trazodone HCl (Desyrel) 50 mg PO HS [facility] Last Admin: 03/14/17 21:52 Dose: 50 mg
--- NOTE | 2017-03-15 12:42 | CP.PCM.PN ---
Subjective - Date & Time of Evaluation Date of Evaluation: 03/15/17 Time of Evaluation: 12:40 - Subjective Subjective: Podiatry Progress Note - Dr. Joyce 61 year old male seen at bedside 4 days s/p R foot 1st and 4th distal phalanx amputations. Patient is seen resting comfortably in bed, AAOx3 and NAD. Patient denies any acute events overnight. Patient admits to tenderness on palpation of the surgical sites. He denies any n/v/f/c/sob/cp. Objective - Vital Signs/Intake and Output Vital Signs (last 24 hours): Temp Pulse Resp BP Pulse Ox 97.3 F L 42 L 20 182/72 H 100 03/15/17 09:34 03/15/17 09:34 03/15/17 09:34 03/15/17 09:34 03/15/17 09:34 - Medications Medications: Current Medications Acetaminophen (Tylenol 325mg Tab) 650 mg PO Q6 PRN PRN Reason: Pain, Mild (1-3) Aspirin (Aspirin Chewable) 81 mg PO DAILY [facility] Last Admin: 03/15/17 08:43 Dose: 81 mg Atorvastatin Calcium (Lipitor) 20 mg PO DAILY [facility] Last Admin: 03/15/17 08:44 Dose: 20 mg Cefepime HCl 1 gm/ Sodium (Chloride) 100 mls @ 100 mls/hr IVPB DAILY [facility] Last Admin: 03/15/17 08:58 Dose: 100 mls/hr Vancomycin HCl 1 gm/ Sodium (Chloride) 250 mls @ 166.667 mls/hr IVPB DAILY@ 1700 [facility] Insulin Human Lispro (Humalog) 0 units SC ACHS [facility] PRN Reason: Protocol Last Admin: 03/15/17 12:20 Dose: 3 units Metformin HCl (Glucophage) 500 mg PO BID [facility] Last Admin: 03/15/17 08:43 Dose: 500 mg Nicotine (Nicoderm Cq) 1 patch TD DAILY [facility] Last Admin: 03/15/17 08:43 Dose: 1 patch Oxycodone/Acetaminophen (Percocet 5/325 Mg Tab) 1 tab PO Q4 PRN PRN Reason: Pain, moderate (4-7) Stop: 03/16/17 22:12 Oxycodone/Acetaminophen (Percocet 5/325 Mg Tab) 2 tab PO Q4 PRN PRN Reason: Pain, severe (8-10) Stop: 03/16/17 22:12 Last Admin: 03/15/17 12:20 Dose: 2 tab Povidone Iodine (Betadine 10% Topical Soln) 473 ml TOP DAILY [facility] Last Admin: 03/15/17 08:44 Dose: Not Given Trazodone HCl (Desyrel) 50 mg PO HS [facility] Last Admin: 03/14/17 21:52 Dose: 50 mg - Constitutional Appears: Non-toxic, No Acute Distress - Extremities Exam Additional comments: Right lower extremity focused examination: VASC: DP and PT pulses palpable 1/4, CFT 3-4 sec to all digits. TG warm to warm from proximal to distal, +1 pitting edema noted on the dorsum of foot. DERM: Surgical sites noted to distal aspect of 1st and 4th digits. Sutures are intact with no signs of over-tensioning or dehiscence. Skin edges are well- coapted at this time. No malodor, no purulence expressed. No serous drainage or maceration noted. NEURO: Protective sensation diminished ORTHO: Tenderness on palpation of the distal tip of the 1st and 4th digit surgical site. - Neurological Exam Neurological Exam: Alert, Awake, Oriented x3 - Psychiatric Exam Psychiatric exam: Normal Affect, Normal Mood Assessment and Plan - Assessment and Plan (Free Text) Assessment: 61 year old male 4 days s/p R foot 1st and 4th distal phalanx amputations secondary to osteomyelitis Plan: Patient examined and evaluated Discussed with attending Dr. Joyce Chart, labs and vitals reviewed- afebrile Dressing applied to R foot with betadine soaked adaptic and DSD Patient to cont IV abx per ID Upon discharge, patient to follow up in [facility] podiatry clinic with Dr. Joyce Should patient return to [facility], pt can also follow up with Dr. Irizarry in Wound care center as he is known to their service
[2017-03-16 00:32] LABS: RBC URINE 8 /hpf (0-3); URINE BACTERIA MOD (<OCC); URINE BILIRUBIN NEGATIVE (NEGATIVE); URINE BLOOD SMALL (NEGATIVE); URINE COLOR YELLOW (YELLOW); URINE GLUCOSE (UA) NEG (Normal); URINE KETONE NEGATIVE (NEGATIVE); URINE LEUKOCYTE ESTERASE LARGE Leu/uL (Negative); URINE PROTEIN NEGATIVE (NEGATIVE); URINE UROBILINOGEN 0.2-1.0 mg/dL (0.2-1.0); WBC URINE 218 /hpf (0-5)
[2017-03-16] MEDS: Oxycodone/Acetaminophen 5/325 mg Tab PO PRN ×4 (06:35→21:12)
[2017-03-16] MEDS: Insulin Lispro (humaLOG) 100 Units/ml Inj SC SCH ×4 (06:37→21:54)
[2017-03-16 07:16] LABS: BASO # 0.1 K/uL (0.0-0.2); BASO % 0.9 % (0.0-2.0); EOS # 0.5 K/uL (0.0-0.7); EOS % 8.3 % (0.0-4.0); HEMATOCRIT 33.7 % (35.0-51.0); LYMPH # 1.9 K/uL (1.0-4.3); LYMPH % 31.7 % (20.0-40.0); MEAN CELL VOLUME 88.4 fl (80.0-94.0); MEAN CORPUSCULAR HEMOGLOBIN 29.3 pg (27.0-31.0); MEAN CORPUSCULAR HGB CONC 33.2 g/dL (33.0-37.0); MEAN PLATELET VOLUME 10.1 fl (7.2-11.7); MONO # 0.9 K/uL (0.0-0.8); MONO % 14.4 % (0.0-10.0); NEUT # 2.7 K/uL (1.8-7.0); NEUT % 44.7 % (50.0-75.0); RED CELL DISTRIBUTION WIDTH 13.7 % (11.5-14.5)
[2017-03-16 07:45] LABS: ALB/GLOB RATIO 1.1 (1.0-2.1); ALKALINE PHOSPHATASE 62 U/L (38-126); ALT/SGPT 35 U/L (21-72); AST/SGOT 27 U/L (17-59); BILIRUBIN,TOTAL 0.2 mg/dl (0.2-1.3); BLOOD UREA NITROGEN 28 mg/dl (9-20); CALCIUM 9.3 mg/dL (8.4-10.2); CARBON DIOXIDE 26 mmol/L (22-30); CHLORIDE 104 mmol/L (98-107); GFR AFRICAN-AMERICAN > 60; GLUCOSE,RANDOM 92 mg/dL (75-110); POTASSIUM 4.7 MMOL/L (3.6-5.0); SODIUM 138 mmol/l (132-148); TOTAL PROTEIN 7.1 G/DL (6.3-8.2)
--- NOTE | 2017-03-16 07:53 | CP.PCM.PN ---
Subjective - Date & Time of Evaluation Date of Evaluation: 03/16/17 Time of Evaluation: 07:51 - Subjective Subjective: Podiatry Progress Note - Dr. Joyce 61 year old male seen at bedside 5 days s/p R foot 1st and 4th distal phalanx amputations. Patient is seen resting comfortably in bed, AAOx3 and NAD. Patient denies any acute events overnight. Patient admits to having pain in the toes when any pressure is applied. Pt denies any F/C/N/V/CP/SOB. Objective - Vital Signs/Intake and Output Vital Signs (last 24 hours): Temp Pulse Resp BP Pulse Ox 95.2 F L 62 20 162/69 H 98 03/15/17 21:18 03/15/17 21:18 03/15/17 21:18 03/15/17 21:18 03/15/17 21:18 - Medications Medications: Current Medications Acetaminophen (Tylenol 325mg Tab) 650 mg PO Q6 PRN PRN Reason: Pain, Mild (1-3) Aspirin (Aspirin Chewable) 81 mg PO DAILY [facility] Last Admin: 03/15/17 08:43 Dose: 81 mg Atorvastatin Calcium (Lipitor) 20 mg PO DAILY [facility] Last Admin: 03/15/17 08:44 Dose: 20 mg Cefepime HCl 1 gm/ Sodium (Chloride) 100 mls @ 100 mls/hr IVPB DAILY [facility] Last Admin: 03/15/17 08:58 Dose: 100 mls/hr Vancomycin HCl 1 gm/ Sodium (Chloride) 250 mls @ 166.667 mls/hr IVPB DAILY@ 1700 [facility] Last Admin: 03/15/17 16:30 Dose: 166.667 mls/hr Insulin Human Lispro (Humalog) 0 units SC ACHS [facility] PRN Reason: Protocol Last Admin: 03/16/17 06:37 Dose: 2 units Metformin HCl (Glucophage) 500 mg PO BID [facility] Last Admin: 03/15/17 16:27 Dose: 500 mg Nicotine (Nicoderm Cq) 1 patch TD DAILY [facility] Last Admin: 03/15/17 08:43 Dose: 1 patch Oxycodone/Acetaminophen (Percocet 5/325 Mg Tab) 1 tab PO Q4 PRN PRN Reason: Pain, moderate (4-7) Stop: 03/16/17 22:12 Oxycodone/Acetaminophen (Percocet 5/325 Mg Tab) 2 tab PO Q4 PRN PRN Reason: Pain, severe (8-10) Stop: 03/16/17 22:12 Last Admin: 03/16/17 06:35 Dose: 2 tab Povidone Iodine (Betadine 10% Topical Soln) 473 ml TOP DAILY [facility] Last Admin: 03/15/17 08:44 Dose: Not Given Trazodone HCl (Desyrel) 50 mg PO HS [facility] Last Admin: 03/15/17 22:17 Dose: 50 mg - Labs Labs: 03/16/17 06:30 - Constitutional Appears: Well, Non-toxic, No Acute Distress - Extremities Exam Additional comments: Right lower extremity focused examination: VASC: DP and PT pulses palpable 1/4, CFT 3-4 sec to all digits. TG warm to warm from proximal to distal, +1 pitting edema noted on the dorsum of foot. DERM: Surgical sites noted to distal aspect of 1st and 4th digits. Sutures are intact with no signs of over-tensioning or dehiscence. Skin edges are well- coapted at this time. No malodor, no purulence expressed. No serous drainage or maceration noted. No tunneling or undermining noted. NEURO: Protective sensation grossly diminished ORTHO: Tenderness on palpation of the distal tip of the 1st and 4th digit surgical site. - Neurological Exam Neurological Exam: Alert, Awake, Oriented x3 - Psychiatric Exam Psychiatric exam: Normal Affect, Normal Mood Assessment and Plan - Assessment and Plan (Free Text) Assessment: 61 year old male 5 days s/p R foot 1st and 4th distal phalanx amputations secondary to osteomyelitis Plan: Patient examined and evaluated Discussed with attending Dr. Joyce Chart, labs and vitals reviewed- afebrile, WBC WNL at 6.0 Dressing applied to R foot with Betadine-soaked Adaptic and DSD Patient to continue full 7 day course of IV abx per ID in TCU Upon discharge, patient to follow up in [facility] podiatry clinic with Dr. Joyce Should patient return to [facility], pt can also follow up with Dr. Irizarry in Wound care center as he is known to their service
[2017-03-16] MEDS: Povidone Iodine Topical 10% Sol TOP SCH (08:54)
[2017-03-16] MEDS: Cefepime 1 GM in Sodium Chloride 0.9% 100 ML IVPB SCH (09:06)
--- NOTE | 2017-03-16 23:35 | CP.PCM.PN ---
Objective - Vital Signs/Intake and Output Vital Signs (last 24 hours): Temp Pulse Resp BP Pulse Ox 99.0 F 44 L 20 135/54 L 99 03/16/17 20:42 03/16/17 20:42 03/16/17 20:42 03/16/17 16:31 03/16/17 20:42 - Medications Medications: Current Medications Acetaminophen (Tylenol 325mg Tab) 650 mg PO Q6 PRN PRN Reason: Pain, Mild (1-3) Aspirin (Aspirin Chewable) 81 mg PO DAILY [facility] Last Admin: 03/16/17 09:04 Dose: 81 mg Atorvastatin Calcium (Lipitor) 20 mg PO DAILY [facility] Last Admin: 03/16/17 09:04 Dose: 20 mg Cefepime HCl 1 gm/ Sodium (Chloride) 100 mls @ 100 mls/hr IVPB DAILY [facility] Last Admin: 03/16/17 09:06 Dose: 100 mls/hr Vancomycin HCl 1 gm/ Sodium (Chloride) 250 mls @ 166.667 mls/hr IVPB DAILY@ 1700 [facility] Last Admin: 03/16/17 17:44 Dose: 166.667 mls/hr Insulin Human Lispro (Humalog) 0 units SC ACHS [facility] PRN Reason: Protocol Last Admin: 03/16/17 21:54 Dose: Not Given Metformin HCl (Glucophage) 500 mg PO BID [facility] Last Admin: 03/16/17 17:10 Dose: 500 mg Nicotine (Nicoderm Cq) 1 patch TD DAILY [facility] Last Admin: 03/16/17 09:04 Dose: 1 patch Oxycodone/Acetaminophen (Percocet 5/325 Mg Tab) 2 tab PO Q4 PRN PRN Reason: Pain, severe (8-10) Stop: 03/19/17 22:26 Povidone Iodine (Betadine 10% Topical Soln) 473 ml TOP DAILY [facility] Last Admin: 03/16/17 08:54 Dose: Not Given Trazodone HCl (Desyrel) 50 mg PO HS [facility] Last Admin: 03/16/17 21:10 Dose: 50 mg - Labs Labs: 03/16/17 06:30 03/16/17 06:30
[2017-03-17] MEDS: Oxycodone/Acetaminophen 5/325 mg Tab PO PRN ×4 (05:21→20:05)
[2017-03-17] MEDS: Insulin Lispro (humaLOG) 100 Units/ml Inj SC SCH ×4 (06:47→21:57)
--- NOTE | 2017-03-17 08:54 | CP.PCM.PN ---
Subjective - Date & Time of Evaluation Date of Evaluation: 03/17/17 Time of Evaluation: 08:51 - Subjective Subjective: Podiatry Progress Note - Dr. Joyce 61 year old male seen at bedside 6 days s/p R foot 1st and 4th distal phalanx amputations. Patient is seen resting comfortably in bed, AAOx3 and NAD. Patient denies any acute events overnight. Patient admits to having pain more so in the big toe now than the 4th, but says he is doing fine. Pt states he is ambulating well with the surgical shoes without any difficulty. Pt states he plans to follow up back in [place] with Dr. Irizarry. Pt denies any F/C/N/V/CP/SOB. Objective - Vital Signs/Intake and Output Vital Signs (last 24 hours): Temp Pulse Resp BP Pulse Ox 97.7 F 42 L 20 147/62 98 03/17/17 08:22 03/17/17 08:22 03/17/17 08:22 03/17/17 08:22 03/17/17 08:22 - Medications Medications: Current Medications Acetaminophen (Tylenol 325mg Tab) 650 mg PO Q6 PRN PRN Reason: Pain, Mild (1-3) Aspirin (Aspirin Chewable) 81 mg PO DAILY [facility] Last Admin: 03/16/17 09:04 Dose: 81 mg Atorvastatin Calcium (Lipitor) 20 mg PO DAILY [facility] Last Admin: 03/16/17 09:04 Dose: 20 mg Cefepime HCl 1 gm/ Sodium (Chloride) 100 mls @ 100 mls/hr IVPB DAILY [facility] Last Admin: 03/16/17 09:06 Dose: 100 mls/hr Vancomycin HCl 1 gm/ Sodium (Chloride) 250 mls @ 166.667 mls/hr IVPB DAILY@ 1700 [facility] Last Admin: 03/16/17 17:44 Dose: 166.667 mls/hr Insulin Human Lispro (Humalog) 0 units SC ACHS [facility] PRN Reason: Protocol Last Admin: 03/17/17 06:47 Dose: 2 units Metformin HCl (Glucophage) 500 mg PO BID [facility] Last Admin: 03/16/17 17:10 Dose: 500 mg Nicotine (Nicoderm Cq) 1 patch TD DAILY [facility] Last Admin: 03/16/17 09:04 Dose: 1 patch Oxycodone/Acetaminophen (Percocet 5/325 Mg Tab) 2 tab PO Q4 PRN PRN Reason: Pain, severe (8-10) Stop: 03/19/17 22:26 Last Admin: 03/17/17 05:21 Dose: 2 tab Povidone Iodine (Betadine 10% Topical Soln) 473 ml TOP DAILY [facility] Last Admin: 03/16/17 08:54 Dose: Not Given Trazodone HCl (Desyrel) 50 mg PO HS [facility] Last Admin: 03/16/17 21:10 Dose: 50 mg - Labs Labs: 03/16/17 06:30 03/16/17 06:30 - Constitutional Appears: Well, Non-toxic, No Acute Distress - Extremities Exam Additional comments: Right lower extremity focused examination: VASC: DP and PT pulses palpable 1/4, CFT 3-4 sec to all digits. Temperature gradient warm to cool from proximal to distal. +1 pitting edema noted on the dorsum of foot that is resolving. DERM: Surgical sites noted to distal aspect of 1st and 4th digits. Sutures are intact with no signs of over-tensioning or dehiscence. Skin edges are well- coapted at this time. No malodor, no purulence expressed. No serous drainage or maceration noted. No tunneling or undermining noted. NEURO: Protective sensation grossly diminished ORTHO: Tenderness on palpation of the distal tip of the 1st and 4th digit surgical sites. - Neurological Exam Neurological Exam: Alert, Awake, Oriented x3 - Psychiatric Exam Psychiatric exam: Normal Affect, Normal Mood Assessment and Plan - Assessment and Plan (Free Text) Assessment: 61 year old male 6 days s/p R foot 1st and 4th distal phalanx amputations secondary to osteomyelitis Plan: Patient examined and evaluated Discussed with attending Dr. Joyce Chart, labs and vitals reviewed- afebrile, WBC WNL 6.0 Dressing applied to R foot with Betadine-soaked Adaptic and DSD Patient to complete his 7 day course of IV abx per ID in TCU Pt to continue ambulation with surgical shoes on at all times weightbearing Upon discharge, patient to follow up with Dr. Irizarry in Wound care center or Juan C's office as he is known to her service Podiatry to continue with daily dressing changes and will continue to follow while patient is in house
[2017-03-17] MEDS: Cefepime 1 GM in Sodium Chloride 0.9% 100 ML IVPB SCH (09:05)
--- NOTE | 2017-03-17 13:06 | CP.PCM.PN ---
Subjective - Date & Time of Evaluation Date of Evaluation: 03/17/17 Time of Evaluation: 12:45 Objective - Vital Signs/Intake and Output Vital Signs (last 24 hours): Temp Pulse Resp BP Pulse Ox 97.7 F 42 L 20 147/62 98 03/17/17 08:22 03/17/17 08:22 03/17/17 08:22 03/17/17 08:22 03/17/17 08:22 - Medications Medications: Current Medications Acetaminophen (Tylenol 325mg Tab) 650 mg PO Q6 PRN PRN Reason: Pain, Mild (1-3) Aspirin (Aspirin Chewable) 81 mg PO DAILY [facility] Last Admin: 03/17/17 09:05 Dose: 81 mg Atorvastatin Calcium (Lipitor) 20 mg PO DAILY [facility] Last Admin: 03/17/17 09:06 Dose: 20 mg Cefepime HCl 1 gm/ Sodium (Chloride) 100 mls @ 100 mls/hr IVPB DAILY [facility] Last Admin: 03/17/17 09:05 Dose: 100 mls/hr Vancomycin HCl 1 gm/ Sodium (Chloride) 250 mls @ 166.667 mls/hr IVPB DAILY@ 1700 [facility] Last Admin: 03/16/17 17:44 Dose: 166.667 mls/hr Insulin Human Lispro (Humalog) 0 units SC ACHS [facility] PRN Reason: Protocol Last Admin: 03/17/17 12:52 Dose: 2 units Metformin HCl (Glucophage) 500 mg PO BID [facility] Last Admin: 03/17/17 09:05 Dose: 500 mg Nicotine (Nicoderm Cq) 1 patch TD DAILY [facility] Last Admin: 03/17/17 09:05 Dose: 1 patch Oxycodone/Acetaminophen (Percocet 5/325 Mg Tab) 2 tab PO Q4 PRN PRN Reason: Pain, severe (8-10) Stop: 03/19/17 22:26 Last Admin: 03/17/17 09:30 Dose: 2 tab Povidone Iodine (Betadine 10% Topical Soln) 473 ml TOP DAILY [facility] Last Admin: 03/16/17 08:54 Dose: Not Given Trazodone HCl (Desyrel) 50 mg PO HS [facility] Last Admin: 03/16/17 21:10 Dose: 50 mg - Labs Labs: 03/16/17 06:30 03/16/17 06:30
[2017-03-17] MEDS: Povidone Iodine Topical 10% Sol TOP SCH (19:34)
[2017-03-18] MEDS: Oxycodone/Acetaminophen 5/325 mg Tab PO PRN ×5 (02:58→21:26)
[2017-03-18] MEDS: Insulin Lispro (humaLOG) 100 Units/ml Inj SC SCH ×4 (06:37→21:28)
--- NOTE | 2017-03-18 07:15 | CP.PCM.PN ---
Subjective - Date & Time of Evaluation Date of Evaluation: 03/18/17 Time of Evaluation: 07:00 - Subjective Subjective: Podiatry Progress Note - Dr. Joyce 61 year old male seen at bedside in TCU 7 days s/p R foot 1st and 4th distal phalanx amputations. Patient is seen resting comfortably in bed, AAOx3 and NAD. Patient denies any acute events overnight. Patient admits to having pain more so in the big toe now than the 4th, but says he is doing fine. Pt scales the pain as an 8 out of 10 but says the pain meds are helping to alleviate it. Pt states he is ambulating well with the surgical shoes without any difficulty. Pt states he plans to follow up back in [place] with Dr. Irizarry and Dr. Colunga. Pt denies any F/C/N/V/CP/SOB. Objective - Vital Signs/Intake and Output Vital Signs (last 24 hours): Temp Pulse Resp BP Pulse Ox 97.3 F L 47 L 20 123/79 99 03/17/17 20:27 03/17/17 20:27 03/17/17 20:27 03/17/17 20:27 03/17/17 20:27 - Medications Medications: Current Medications Acetaminophen (Tylenol 325mg Tab) 650 mg PO Q6 PRN PRN Reason: Pain, Mild (1-3) Aspirin (Aspirin Chewable) 81 mg PO DAILY [facility] Last Admin: 03/17/17 09:05 Dose: 81 mg Atorvastatin Calcium (Lipitor) 20 mg PO DAILY [facility] Last Admin: 03/17/17 09:06 Dose: 20 mg Cefepime HCl 1 gm/ Sodium (Chloride) 100 mls @ 100 mls/hr IVPB DAILY [facility] Last Admin: 03/17/17 09:05 Dose: 100 mls/hr Vancomycin HCl 1 gm/ Sodium (Chloride) 250 mls @ 166.667 mls/hr IVPB DAILY@ 1700 [facility] Last Admin: 03/17/17 16:32 Dose: 166.667 mls/hr Insulin Human Lispro (Humalog) 0 units SC ACHS [facility] PRN Reason: Protocol Last Admin: 03/18/17 06:37 Dose: Not Given Metformin HCl (Glucophage) 500 mg PO BID [facility] Last Admin: 03/17/17 16:36 Dose: 500 mg Nicotine (Nicoderm Cq) 1 patch TD DAILY [facility] Last Admin: 03/17/17 09:05 Dose: 1 patch Oxycodone/Acetaminophen (Percocet 5/325 Mg Tab) 2 tab PO Q4 PRN PRN Reason: Pain, severe (8-10) Stop: 03/19/17 22:26 Last Admin: 03/18/17 02:58 Dose: 2 tab Povidone Iodine (Betadine 10% Topical Soln) 473 ml TOP DAILY [facility] Last Admin: 03/17/17 19:34 Dose: Not Given Trazodone HCl (Desyrel) 50 mg PO HS [facility] Last Admin: 03/17/17 21:49 Dose: 50 mg - Labs Labs: 03/16/17 06:30 03/16/17 06:30 - Constitutional Appears: Well, Non-toxic, No Acute Distress - Extremities Exam Additional comments: Right lower extremity focused examination: VASC: DP and PT pulses palpable 1/4, CFT <3 sec to all digits. Temperature gradient warm to cool from proximal to distal. +1 pitting edema noted on the dorsum of foot that is resolving. DERM: Surgical sites noted to distal aspect of 1st and 4th digits. Sutures are intact with no signs of increased tension or dehiscence. Skin edges are well coapted. No malodor, no purulence expressed. No serous drainage or maceration noted. No tunneling or undermining noted. NEURO: Protective sensation grossly diminished ORTHO: Tenderness on palpation of the distal tip of the 1st and 4th digit surgical sites. - Neurological Exam Neurological Exam: Alert, Awake, Oriented x3 - Psychiatric Exam Psychiatric exam: Normal Affect, Normal Mood Assessment and Plan - Assessment and Plan (Free Text) Assessment: 61 year old male 7 days s/p R foot 1st and 4th distal phalanx amputations secondary to osteomyelitis Plan: Patient examined and evaluated Discussed with attending Dr. Joyce Chart, labs and vitals reviewed- afebrile, last taken WBC WNL 6.0 Dressing applied to R foot with Betadine-soaked Adaptic and DSD Patient to complete his 7 day course of IV abx per ID in TCU Pt to continue ambulation with surgical shoes on at all times weightbearing Upon D/C, patient to follow up with Dr. Irizarry in Wound care center or Juan C' s office Podiatry to continue with daily dressing changes and will continue to follow while patient is in house
[2017-03-18] MEDS: Cefepime 1 GM in Sodium Chloride 0.9% 100 ML IVPB SCH (08:21)
[2017-03-18] MEDS: Povidone Iodine Topical 10% Sol TOP SCH (09:08)
--- NOTE | 2017-03-18 12:50 | CP.PCM.PN ---
Subjective - Date & Time of Evaluation Date of Evaluation: 03/18/17 Time of Evaluation: 09:00 - Subjective Subjective: pain less wounds healing cont iv rx Objective - Vital Signs/Intake and Output Vital Signs (last 24 hours): Temp Pulse Resp BP Pulse Ox 98.2 F 65 20 132/57 L 99 03/18/17 08:12 03/18/17 08:51 03/18/17 08:12 03/18/17 08:51 03/18/17 08:51 - Medications Medications: Current Medications Acetaminophen (Tylenol 325mg Tab) 650 mg PO Q6 PRN PRN Reason: Pain, Mild (1-3) Aspirin (Aspirin Chewable) 81 mg PO DAILY [facility] Last Admin: 03/18/17 08:13 Dose: 81 mg Atorvastatin Calcium (Lipitor) 20 mg PO DAILY [facility] Last Admin: 03/18/17 08:13 Dose: 20 mg Cefepime HCl 1 gm/ Sodium (Chloride) 100 mls @ 100 mls/hr IVPB DAILY [facility] Last Admin: 03/18/17 08:21 Dose: 100 mls/hr Vancomycin HCl 1 gm/ Sodium (Chloride) 250 mls @ 166.667 mls/hr IVPB DAILY@ 1700 [facility] Last Admin: 03/17/17 16:32 Dose: 166.667 mls/hr Insulin Human Lispro (Humalog) 0 units SC ACHS [facility] PRN Reason: Protocol Last Admin: 03/18/17 06:37 Dose: Not Given Metformin HCl (Glucophage) 500 mg PO BID [facility] Last Admin: 03/18/17 08:13 Dose: 500 mg Nicotine (Nicoderm Cq) 1 patch TD DAILY [facility] Last Admin: 03/18/17 08:13 Dose: 1 patch Oxycodone/Acetaminophen (Percocet 5/325 Mg Tab) 2 tab PO Q4 PRN PRN Reason: Pain, severe (8-10) Stop: 03/19/17 22:26 Last Admin: 03/18/17 12:31 Dose: 2 tab Povidone Iodine (Betadine 10% Topical Soln) 473 ml TOP DAILY [facility] Last Admin: 03/18/17 09:08 Dose: Not Given Trazodone HCl (Desyrel) 50 mg PO HS [facility] Last Admin: 03/17/17 21:49 Dose: 50 mg - Labs Labs: 03/16/17 06:30 03/16/17 06:30 - Constitutional Appears: Non-toxic, Cachectic, Chronically Ill - Head Exam Head Exam: NORMOCEPHALIC - Eye Exam Eye Exam: PERRL. absent: Scleral icterus - ENT Exam ENT Exam: Mucous Membranes Dry, Normal External Ear Exam - Neck Exam Neck Exam: absent: Lymphadenopathy - Respiratory Exam Respiratory Exam: Decreased Breath Sounds - Cardiovascular Exam Cardiovascular Exam: REGULAR RHYTHM - GI/Abdominal Exam GI & Abdominal Exam: Distended, Soft - Rectal Exam Rectal Exam: Deferred - Exam Exam: NORMAL INSPECTION - Extremities Exam Extremities Exam: Pedal Edema, Tenderness. absent: Calf Tenderness Additional comments: left bka - Back Exam Back Exam: absent: CVA tenderness (L), CVA tenderness (R) - Neurological Exam Neurological Exam: Alert, Awake, Oriented x3 - Psychiatric Exam Psychiatric exam: Normal Mood - Skin Skin Exam: Dry Assessment and Plan (1) Gangrene Status: Acute - Assessment and Plan (Free Text) Plan: cont iv rx and wound care
[2017-03-19] MEDS: Oxycodone/Acetaminophen 5/325 mg Tab PO PRN ×4 (01:19→20:38)
[2017-03-19] MEDS: Insulin Lispro (humaLOG) 100 Units/ml Inj SC SCH ×4 (08:20→21:51)
--- NOTE | 2017-03-19 08:39 | CP.PCM.PN ---
Subjective - Date & Time of Evaluation Date of Evaluation: 03/19/17 Time of Evaluation: 08:37 - Subjective Subjective: Podiatry Progress Note - Dr. Joyce 61 year old male seen at bedside in TCU 8 days s/p R foot 1st and 4th distal phalanx amputations. Patient is seen resting comfortably in bed, AAOx3 and NAD. Patient denies any acute events overnight. Patient states he is only having mild pain today. Pt says he is doing just fine with the surgical shoes without any difficulty. Pt states he plans to follow up back in [place] with Dr. Irizarry and Dr. Colunga. Pt denies any F/C/N/V/CP/SOB. Objective - Vital Signs/Intake and Output Vital Signs (last 24 hours): Temp Pulse Resp BP Pulse Ox 98.0 F 65 20 130/65 99 03/19/17 08:02 03/19/17 08:02 03/19/17 08:02 03/19/17 08:02 03/19/17 08:02 - Medications Medications: Current Medications Acetaminophen (Tylenol 325mg Tab) 650 mg PO Q6 PRN PRN Reason: Pain, Mild (1-3) Aspirin (Aspirin Chewable) 81 mg PO DAILY [facility] Last Admin: 03/19/17 08:19 Dose: 81 mg Atorvastatin Calcium (Lipitor) 20 mg PO DAILY [facility] Last Admin: 03/19/17 08:19 Dose: 20 mg Vancomycin HCl 1 gm/ Sodium (Chloride) 250 mls @ 166.667 mls/hr IVPB DAILY@ 1700 [facility] Last Admin: 03/18/17 16:28 Dose: 166.667 mls/hr Insulin Human Lispro (Humalog) 0 units SC ACHS [facility] PRN Reason: Protocol Last Admin: 03/19/17 08:20 Dose: Not Given Metformin HCl (Glucophage) 500 mg PO BID [facility] Last Admin: 03/19/17 08:19 Dose: 500 mg Nicotine (Nicoderm Cq) 1 patch TD DAILY [facility] Last Admin: 03/19/17 08:19 Dose: 1 patch Oxycodone/Acetaminophen (Percocet 5/325 Mg Tab) 2 tab PO Q4 PRN PRN Reason: Pain, severe (8-10) Stop: 03/19/17 22:26 Last Admin: 03/19/17 06:47 Dose: 2 tab Povidone Iodine (Betadine 10% Topical Soln) 473 ml TOP DAILY [facility] Last Admin: 03/18/17 09:08 Dose: Not Given Trazodone HCl (Desyrel) 50 mg PO HS [facility] Last Admin: 03/18/17 21:28 Dose: 50 mg - Labs Labs: 03/16/17 06:30 03/16/17 06:30 - Constitutional Appears: Well, Non-toxic, No Acute Distress - Extremities Exam Additional comments: Right lower extremity focused examination: VASC: DP and PT pulses palpable 1/4, CFT <3 sec to all digits. Temperature gradient warm to cool from proximal to distal. No pedal edema noted at this time. DERM: Surgical sites noted to distal aspect of 1st and 4th digits. Sutures are intact with no signs of increased tension or dehiscence. Skin edges are well coapted. No malodor, no purulence expressed. No serous drainage or maceration noted. No tunneling or undermining noted. NEURO: Protective sensation grossly diminished ORTHO: Tenderness on palpation of the distal tip of the 1st and 4th digit surgical sites. - Neurological Exam Neurological Exam: Alert, Awake, Oriented x3 - Psychiatric Exam Psychiatric exam: Normal Affect, Normal Mood Assessment and Plan - Assessment and Plan (Free Text) Assessment: 61 year old diabetic male 8 days s/p R foot 1st and 4th distal phalanx amputations secondary to osteomyelitis Plan: Patient examined and evaluated Discussed with attending Dr. Joyce Chart, labs and vitals reviewed- afebrile, last taken WBC WNL 6.0 Dressing applied to R foot with saline-soaked 4x4 gauze and DSD Patient to complete his course of IV abx per ID in TCU Pt to continue ambulation with surgical shoes on at all times weightbearing Upon D/C, patient to follow up with Dr. Irizarry in Wound care center or Juan C' s office Podiatry to continue with daily dressing changes We will continue to follow while patient is in house
[2017-03-19] MEDS: Povidone Iodine Topical 10% Sol TOP SCH (14:50)
[2017-03-20] MEDS ORDERED: Oxycodone/Acetaminophen 5/325 mg Tab PO ONE (06:15)
--- NOTE | 2017-03-20 06:48 | CP.PCM.PN ---
Subjective - Date & Time of Evaluation Date of Evaluation: 03/20/17 Time of Evaluation: 15:00 - Subjective Subjective: Podiatry Progress Note - Dr. Joyce 61 year old male seen at bedside in TCU 9 days s/p R foot 1st and 4th distal phalanx amputations. Patient is seen resting comfortably in bed, AAOx3 and NAD. Patient denies any acute events overnight. Pt states his pain is the same and occasionally causes a throbbing sensation. Pt states he plans to follow up back in [place] with Dr. Irizarry and Dr. Colunga. Pt denies any F/C/N/V/CP/SOB. Objective - Vital Signs/Intake and Output Vital Signs (last 24 hours): Temp Pulse Resp BP Pulse Ox 98.2 F 52 L 20 151/63 H 100 03/19/17 21:33 03/19/17 21:33 03/19/17 21:33 03/19/17 21:33 03/19/17 21:33 - Medications Medications: Current Medications Acetaminophen (Tylenol 325mg Tab) 650 mg PO Q6 PRN PRN Reason: Pain, Mild (1-3) Aspirin (Aspirin Chewable) 81 mg PO DAILY [facility] Last Admin: 03/19/17 08:19 Dose: 81 mg Atorvastatin Calcium (Lipitor) 20 mg PO DAILY [facility] Last Admin: 03/19/17 08:19 Dose: 20 mg Vancomycin HCl 1 gm/ Sodium (Chloride) 250 mls @ 166.667 mls/hr IVPB DAILY@ 1700 [facility] Last Admin: 03/19/17 17:11 Dose: 166.667 mls/hr Insulin Human Lispro (Humalog) 0 units SC ACHS [facility] PRN Reason: Protocol Last Admin: 03/19/17 21:51 Dose: Not Given Metformin HCl (Glucophage) 500 mg PO BID [facility] Last Admin: 03/19/17 17:12 Dose: 500 mg Nicotine (Nicoderm Cq) 1 patch TD DAILY [facility] Last Admin: 03/19/17 08:19 Dose: 1 patch Povidone Iodine (Betadine 10% Topical Soln) 473 ml TOP DAILY [facility] Last Admin: 03/19/17 14:50 Dose: Not Given Trazodone HCl (Desyrel) 50 mg PO HS [facility] Last Admin: 03/19/17 21:51 Dose: 50 mg - Labs Labs: 03/16/17 06:30 03/16/17 06:30 - Constitutional Appears: Well, Non-toxic, No Acute Distress - Extremities Exam Additional comments: Right lower extremity focused examination: VASC: DP and PT pulses palpable 1/4, CFT <3 sec to all digits. Temperature gradient warm to cool from proximal to distal. No pedal edema noted at this time. DERM: Surgical sites noted to distal aspect of 1st and 4th digits. Sutures are intact with no signs of increased tension or dehiscence. Skin edges are well coapted. No malodor, no purulence expressed. No serous drainage or maceration noted. No tunneling or undermining noted. NEURO: Protective sensation grossly diminished ORTHO: Tenderness on palpation of the distal tip of the 1st and 4th digit surgical sites. - Neurological Exam Neurological Exam: Alert, Awake, Oriented x3 - Psychiatric Exam Psychiatric exam: Normal Affect, Normal Mood Assessment and Plan - Assessment and Plan (Free Text) Assessment: 61 year old diabetic male 9 days s/p R foot 1st and 4th distal phalanx amputations secondary to osteomyelitis Plan: Patient examined and evaluated Discussed with attending Dr. Joyce Chart, labs and vitals reviewed- afebrile, last taken WBC WNL 6.0 Dressing applied to R foot with saline-soaked 4x4 gauze and DSD Patient to complete his course of IV abx per ID in TCU Pt to continue ambulation with surgical shoes on at all times weightbearing Upon D/C, patient to follow up with Dr. Irizarry in Wound care center or Juan C' s office Podiatry to continue with daily dressing changes We will continue to follow while patient is in house
[2017-03-20] MEDS: Insulin Lispro (humaLOG) 100 Units/ml Inj SC SCH ×4 (08:07→21:53)
[2017-03-20] MEDS: Povidone Iodine Topical 10% Sol TOP SCH (08:18)
[2017-03-20] MEDS: Oxycodone/Acetaminophen 5/325 mg Tab PO PRN ×3 (12:24→21:51)
--- NOTE | 2017-03-20 12:46 | CP.PCM.PN ---
Subjective - Date & Time of Evaluation Date of Evaluation: 03/20/17 Time of Evaluation: 09:00 - Subjective Subjective: improving on rx Objective - Vital Signs/Intake and Output Vital Signs (last 24 hours): Temp Pulse Resp BP Pulse Ox 98.2 F 53 L 20 193/93 H 99 03/20/17 08:15 03/20/17 08:15 03/20/17 08:15 03/20/17 08:15 03/20/17 08:15 - Medications Medications: Current Medications Acetaminophen (Tylenol 325mg Tab) 650 mg PO Q6 PRN PRN Reason: Pain, Mild (1-3) Aspirin (Aspirin Chewable) 81 mg PO DAILY [facility] Last Admin: 03/20/17 08:41 Dose: 81 mg Atorvastatin Calcium (Lipitor) 20 mg PO DAILY@2100 [facility] Vancomycin HCl 1 gm/ Sodium (Chloride) 250 mls @ 166.667 mls/hr IVPB DAILY@ 1700 [facility] Last Admin: 03/19/17 17:11 Dose: 166.667 mls/hr Insulin Human Lispro (Humalog) 0 units SC ACHS [facility] PRN Reason: Protocol Last Admin: 03/20/17 12:22 Dose: Not Given Metformin HCl (Glucophage) 500 mg PO BID [facility] Last Admin: 03/20/17 08:41 Dose: 500 mg Nicotine (Nicoderm Cq) 1 patch TD DAILY [facility] Last Admin: 03/20/17 08:41 Dose: 1 patch Oxycodone/Acetaminophen (Percocet 5/325 Mg Tab) 2 tab PO Q4 PRN PRN Reason: Pain, severe (8-10) Stop: 03/23/17 12:13 Last Admin: 03/20/17 12:24 Dose: 2 tab Povidone Iodine (Betadine 10% Topical Soln) 473 ml TOP DAILY [facility] Last Admin: 03/20/17 08:18 Dose: Not Given Trazodone HCl (Desyrel) 50 mg PO HS [facility] Last Admin: 03/19/17 21:51 Dose: 50 mg - Labs Labs: 03/16/17 06:30 03/16/17 06:30 - Constitutional Appears: Non-toxic, Cachectic, Chronically Ill - Head Exam Head Exam: NORMOCEPHALIC - Eye Exam Eye Exam: PERRL. absent: Nystagmus - ENT Exam ENT Exam: Mucous Membranes Dry, Normal External Ear Exam - Neck Exam Neck Exam: absent: Lymphadenopathy - Respiratory Exam Respiratory Exam: Decreased Breath Sounds, Clear to Ausculation Bilateral - Cardiovascular Exam Cardiovascular Exam: REGULAR RHYTHM - GI/Abdominal Exam GI & Abdominal Exam: Distended, Soft - Rectal Exam Rectal Exam: Deferred - Exam Exam: NORMAL INSPECTION Assessment and Plan (1) Gangrene Status: Acute - Assessment and Plan (Free Text) Plan: hx bka left s/p amp 2nd and 4th digits right improving
--- NOTE | 2017-03-20 23:48 | CP.PCM.PN ---
Subjective - Date & Time of Evaluation Date of Evaluation: 03/18/17 Time of Evaluation: 07:00 Objective - Vital Signs/Intake and Output Vital Signs (last 24 hours): Temp Pulse Resp BP Pulse Ox 96.1 F L 66 20 140/66 99 03/20/17 22:31 03/20/17 22:31 03/20/17 22:31 03/20/17 22:31 03/20/17 22:31 - Medications Medications: Current Medications Acetaminophen (Tylenol 325mg Tab) 650 mg PO Q6 PRN PRN Reason: Pain, Mild (1-3) Aspirin (Aspirin Chewable) 81 mg PO DAILY [facility] Last Admin: 03/20/17 08:41 Dose: 81 mg Atorvastatin Calcium (Lipitor) 20 mg PO DAILY@2100 [facility] Last Admin: 03/20/17 21:51 Dose: 20 mg Vancomycin HCl 1 gm/ Sodium (Chloride) 250 mls @ 166.667 mls/hr IVPB DAILY@ 1700 [facility] Last Admin: 03/20/17 16:23 Dose: 166.667 mls/hr Insulin Human Lispro (Humalog) 0 units SC ACHS [facility] PRN Reason: Protocol Last Admin: 03/20/17 21:53 Dose: Not Given Metformin HCl (Glucophage) 500 mg PO BID [facility] Last Admin: 03/20/17 16:22 Dose: 500 mg Nicotine (Nicoderm Cq) 1 patch TD DAILY [facility] Last Admin: 03/20/17 08:41 Dose: 1 patch Oxycodone/Acetaminophen (Percocet 5/325 Mg Tab) 2 tab PO Q4 PRN PRN Reason: Pain, severe (8-10) Stop: 03/23/17 12:13 Last Admin: 03/20/17 21:51 Dose: 2 tab Povidone Iodine (Betadine 10% Topical Soln) 473 ml TOP DAILY [facility] Last Admin: 03/20/17 08:18 Dose: Not Given Trazodone HCl (Desyrel) 50 mg PO HS [facility] Last Admin: 03/20/17 21:51 Dose: 50 mg - Labs Labs: 03/16/17 06:30 03/16/17 06:30
--- NOTE | 2017-03-20 23:49 | CP.PCM.PN ---
Subjective - Date & Time of Evaluation Date of Evaluation: 03/19/17 Time of Evaluation: 15:00 Objective - Vital Signs/Intake and Output Vital Signs (last 24 hours): Temp Pulse Resp BP Pulse Ox 96.1 F L 66 20 140/66 99 03/20/17 22:31 03/20/17 22:31 03/20/17 22:31 03/20/17 22:31 03/20/17 22:31 - Medications Medications: Current Medications Acetaminophen (Tylenol 325mg Tab) 650 mg PO Q6 PRN PRN Reason: Pain, Mild (1-3) Aspirin (Aspirin Chewable) 81 mg PO DAILY [facility] Last Admin: 03/20/17 08:41 Dose: 81 mg Atorvastatin Calcium (Lipitor) 20 mg PO DAILY@2100 [facility] Last Admin: 03/20/17 21:51 Dose: 20 mg Vancomycin HCl 1 gm/ Sodium (Chloride) 250 mls @ 166.667 mls/hr IVPB DAILY@ 1700 [facility] Last Admin: 03/20/17 16:23 Dose: 166.667 mls/hr Insulin Human Lispro (Humalog) 0 units SC ACHS [facility] PRN Reason: Protocol Last Admin: 03/20/17 21:53 Dose: Not Given Metformin HCl (Glucophage) 500 mg PO BID [facility] Last Admin: 03/20/17 16:22 Dose: 500 mg Nicotine (Nicoderm Cq) 1 patch TD DAILY [facility] Last Admin: 03/20/17 08:41 Dose: 1 patch Oxycodone/Acetaminophen (Percocet 5/325 Mg Tab) 2 tab PO Q4 PRN PRN Reason: Pain, severe (8-10) Stop: 03/23/17 12:13 Last Admin: 03/20/17 21:51 Dose: 2 tab Povidone Iodine (Betadine 10% Topical Soln) 473 ml TOP DAILY [facility] Last Admin: 03/20/17 08:18 Dose: Not Given Trazodone HCl (Desyrel) 50 mg PO HS [facility] Last Admin: 03/20/17 21:51 Dose: 50 mg - Labs Labs: 03/16/17 06:30 03/16/17 06:30
--- NOTE | 2017-03-20 23:50 | CP.PCM.PN ---
Subjective - Date & Time of Evaluation Date of Evaluation: 03/20/17 Time of Evaluation: 06:45 Objective - Vital Signs/Intake and Output Vital Signs (last 24 hours): Temp Pulse Resp BP Pulse Ox 96.1 F L 66 20 140/66 99 03/20/17 22:31 03/20/17 22:31 03/20/17 22:31 03/20/17 22:31 03/20/17 22:31 - Medications Medications: Current Medications Acetaminophen (Tylenol 325mg Tab) 650 mg PO Q6 PRN PRN Reason: Pain, Mild (1-3) Aspirin (Aspirin Chewable) 81 mg PO DAILY [facility] Last Admin: 03/20/17 08:41 Dose: 81 mg Atorvastatin Calcium (Lipitor) 20 mg PO DAILY@2100 [facility] Last Admin: 03/20/17 21:51 Dose: 20 mg Vancomycin HCl 1 gm/ Sodium (Chloride) 250 mls @ 166.667 mls/hr IVPB DAILY@ 1700 [facility] Last Admin: 03/20/17 16:23 Dose: 166.667 mls/hr Insulin Human Lispro (Humalog) 0 units SC ACHS [facility] PRN Reason: Protocol Last Admin: 03/20/17 21:53 Dose: Not Given Metformin HCl (Glucophage) 500 mg PO BID [facility] Last Admin: 03/20/17 16:22 Dose: 500 mg Nicotine (Nicoderm Cq) 1 patch TD DAILY [facility] Last Admin: 03/20/17 08:41 Dose: 1 patch Oxycodone/Acetaminophen (Percocet 5/325 Mg Tab) 2 tab PO Q4 PRN PRN Reason: Pain, severe (8-10) Stop: 03/23/17 12:13 Last Admin: 03/20/17 21:51 Dose: 2 tab Povidone Iodine (Betadine 10% Topical Soln) 473 ml TOP DAILY [facility] Last Admin: 03/20/17 08:18 Dose: Not Given Trazodone HCl (Desyrel) 50 mg PO HS [facility] Last Admin: 03/20/17 21:51 Dose: 50 mg - Labs Labs: 03/16/17 06:30 03/16/17 06:30
[2017-03-21] MEDS: Insulin Lispro (humaLOG) 100 Units/ml Inj SC SCH ×4 (07:10→21:44)
[2017-03-21] MEDS: Oxycodone/Acetaminophen 5/325 mg Tab PO PRN ×3 (07:57→21:37)
[2017-03-21] MEDS: Povidone Iodine Topical 10% Sol TOP SCH (08:20)
--- NOTE | 2017-03-21 09:13 | CP.PCM.PN ---
Subjective - Date & Time of Evaluation Date of Evaluation: 03/21/17 Time of Evaluation: 12:32 - Subjective Subjective: Podiatry Progress Note - Dr. Joyce 61 year old male seen at bedside in TCU 10 days s/p R foot 1st and 4th distal phalanx amputations. Patient is seen resting comfortably in bed, AAOx3 and NAD. Patient denies any acute events overnight. Pt states the pain is primarily in the 4th digit. Pt states he will be going home Thursday and returning to the [facility]. Pt states he plans to follow up back in [place] with Dr. Irizarry and Dr. Colunga. Pt denies any F/C/N/V/CP/SOB. Objective - Vital Signs/Intake and Output Vital Signs (last 24 hours): Temp Pulse Resp BP Pulse Ox 98.8 F 65 20 139/60 100 03/21/17 08:40 03/21/17 08:40 03/21/17 08:40 03/21/17 08:40 03/21/17 08:40 - Medications Medications: Current Medications Acetaminophen (Tylenol 325mg Tab) 650 mg PO Q6 PRN PRN Reason: Pain, Mild (1-3) Aspirin (Aspirin Chewable) 81 mg PO DAILY [facility] Last Admin: 03/21/17 08:21 Dose: 81 mg Atorvastatin Calcium (Lipitor) 20 mg PO DAILY@2100 [facility] Last Admin: 03/20/17 21:51 Dose: 20 mg Vancomycin HCl 1 gm/ Sodium (Chloride) 250 mls @ 166.667 mls/hr IVPB DAILY@ 1700 [facility] Last Admin: 03/20/17 16:23 Dose: 166.667 mls/hr Insulin Human Lispro (Humalog) 0 units SC ACHS [facility] PRN Reason: Protocol Last Admin: 03/21/17 07:10 Dose: Not Given Metformin HCl (Glucophage) 500 mg PO BID [facility] Last Admin: 03/21/17 08:22 Dose: 500 mg Nicotine (Nicoderm Cq) 1 patch TD DAILY [facility] Last Admin: 03/21/17 08:22 Dose: 1 patch Oxycodone/Acetaminophen (Percocet 5/325 Mg Tab) 2 tab PO Q4 PRN PRN Reason: Pain, severe (8-10) Stop: 03/23/17 12:13 Last Admin: 03/21/17 07:57 Dose: 2 tab Povidone Iodine (Betadine 10% Topical Soln) 473 ml TOP DAILY [facility] Last Admin: 03/21/17 08:20 Dose: Not Given Trazodone HCl (Desyrel) 50 mg PO HS [facility] Last Admin: 03/20/17 21:51 Dose: 50 mg - Labs Labs: 03/16/17 06:30 03/16/17 06:30 - Constitutional Appears: Well, Non-toxic, No Acute Distress - Extremities Exam Additional comments: Right lower extremity focused examination: VASC: DP and PT pulses palpable 1/4. CFT < 3 sec to all digits. Temperature gradient warm to cool from proximal to distal. No pedal edema noted. DERM: Surgical sites at distal aspect of 1st and 4th digits with sutures intact , no signs of increased tension or dehiscence at incision sites. Skin edges are well coapted. No malodor, no purulence expressed. No serous drainage or maceration noted. No tunneling or undermining noted. NEURO: Protective sensation grossly diminished ORTHO: Tenderness on palpation of the distal tip of the 4th digit surgical site. No tenderness to palpation noted to 1st digit. - Neurological Exam Neurological Exam: Alert, Awake, Oriented x3 - Psychiatric Exam Psychiatric exam: Normal Affect, Normal Mood Assessment and Plan - Assessment and Plan (Free Text) Assessment: 61 year old diabetic male 10 days s/p R foot 1st and 4th distal phalanx amputations secondary to osteomyelitis Plan: Patient examined and evaluated Discussed with attending Dr. Joyce Chart, labs and vitals reviewed- afebrile, last taken WBC WNL 6.0 Dressing applied to R foot with saline-soaked 4x4 gauze and DSD Patient to complete his course of IV abx per ID in TCU Pt to continue ambulation with surgical shoes on at all times weightbearing Upon D/C on Thursday, patient to follow up with Dr. Irizarry in Wound care center or Juan C's office Podiatry to continue with daily dressing changes We will continue to follow while patient is in house
[2017-03-22] MEDS: Oxycodone/Acetaminophen 5/325 mg Tab PO PRN ×4 (06:48→20:11)
[2017-03-22] MEDS: Insulin Lispro (humaLOG) 100 Units/ml Inj SC SCH ×4 (07:20→21:00)
[2017-03-22] MEDS: Povidone Iodine Topical 10% Sol TOP SCH (08:37)
--- NOTE | 2017-03-22 09:01 | CP.PCM.PN ---
Subjective - Date & Time of Evaluation Date of Evaluation: 03/22/17 Time of Evaluation: 09:03 - Subjective Subjective: Podiatry Progress Note - Dr. Joyce 61 year old male seen at bedside in TCU 10 days s/p R foot 1st and 4th distal phalanx amputations. Patient is seen resting comfortably in bed, sleeping at time of visit. Patient denies any acute events overnight. Pt states the pain is primarily in the 4th digit but he is fine at this time. Pt states he will be going home tomorrow and returning to the [facility] [place]. Pt states he plans to follow up back in [place] with Dr. Irizarry and Dr. Colunga. Pt denies any F/C/N/V /CP/SOB. Objective - Vital Signs/Intake and Output Vital Signs (last 24 hours): Temp Pulse Resp BP Pulse Ox 98.1 F 67 20 149/48 L 99 03/21/17 20:24 03/21/17 20:24 03/21/17 20:24 03/21/17 20:24 03/21/17 20:24 - Medications Medications: Current Medications Acetaminophen (Tylenol 325mg Tab) 650 mg PO Q6 PRN PRN Reason: Pain, Mild (1-3) Aspirin (Aspirin Chewable) 81 mg PO DAILY [facility] Last Admin: 03/22/17 08:38 Dose: 81 mg Atorvastatin Calcium (Lipitor) 20 mg PO DAILY@2100 [facility] Last Admin: 03/21/17 21:36 Dose: 20 mg Vancomycin HCl 1 gm/ Sodium (Chloride) 250 mls @ 166.667 mls/hr IVPB DAILY@ 1700 [facility] Last Admin: 03/21/17 17:05 Dose: 166.667 mls/hr Insulin Human Lispro (Humalog) 0 units SC ACHS [facility] PRN Reason: Protocol Last Admin: 03/22/17 07:20 Dose: Not Given Metformin HCl (Glucophage) 500 mg PO BID [facility] Last Admin: 03/22/17 08:38 Dose: 500 mg Nicotine (Nicoderm Cq) 1 patch TD DAILY [facility] Last Admin: 03/22/17 08:39 Dose: 1 patch Oxycodone/Acetaminophen (Percocet 5/325 Mg Tab) 2 tab PO Q4 PRN PRN Reason: Pain, severe (8-10) Stop: 03/23/17 12:13 Last Admin: 03/22/17 06:48 Dose: 2 tab Povidone Iodine (Betadine 10% Topical Soln) 473 ml TOP DAILY [facility] Last Admin: 03/22/17 08:37 Dose: Not Given Trazodone HCl (Desyrel) 50 mg PO HS [facility] Last Admin: 03/21/17 21:36 Dose: 50 mg - Labs Labs: 03/16/17 06:30 03/16/17 06:30 - Constitutional Appears: Well, Non-toxic, No Acute Distress - Extremities Exam Additional comments: Right lower extremity focused examination: VASC: DP and PT pulses palpable 1/4. CFT < 3 sec to all digits. Temperature gradient warm to cool from proximal to distal. No pedal edema noted. DERM: Surgical sites at distal aspect of 1st and 4th digits with sutures intact , no signs of increased tension or dehiscence at incision sites. Skin edges are well coapted. No malodor, no purulence expressed. No serous drainage or maceration noted. No tunneling or undermining noted. NEURO: Protective sensation grossly diminished ORTHO: Tenderness on palpation of the distal tip of the 4th digit surgical site. No tenderness to palpation noted to 1st digit. - Neurological Exam Neurological Exam: Alert, Awake, Oriented x3 - Psychiatric Exam Psychiatric exam: Normal Affect, Normal Mood Assessment and Plan - Assessment and Plan (Free Text) Assessment: 61 year old diabetic male 11 days s/p R foot 1st and 4th distal phalanx amputations secondary to osteomyelitis Plan: Patient examined and evaluated Discussed with attending Dr. Joyce Chart, labs and vitals reviewed- afebrile, last taken WBC WNL 6.0 Cleansed 1st and 4th digits of R foot with saline Dressing applied to R foot with saline-soaked 4x4 gauze and DSD Patient to complete his course of IV abx per ID in TCU Pt to continue ambulation with surgical shoe on at all times weightbearing Upon D/C Thursday, patient to follow up with Dr. Irizarry in Wound care center or Juan C's office Podiatry to continue with daily dressing changes We will continue to follow while patient is in house
--- NOTE | 2017-03-22 15:55 | CP.PCM.PN ---
Subjective - Date & Time of Evaluation Date of Evaluation: 03/22/17 Time of Evaluation: 09:00 - Subjective Subjective: 10 days s/p R foot 1st and 4th distal phalanx amputations. Objective - Vital Signs/Intake and Output Vital Signs (last 24 hours): Temp Pulse Resp BP Pulse Ox 97.2 F L 60 20 136/53 L 99 03/22/17 09:45 03/22/17 09:45 03/22/17 09:45 03/22/17 09:45 03/22/17 09:45 - Medications Medications: Current Medications Acetaminophen (Tylenol 325mg Tab) 650 mg PO Q6 PRN PRN Reason: Pain, Mild (1-3) Aspirin (Aspirin Chewable) 81 mg PO DAILY [facility] Last Admin: 03/22/17 08:38 Dose: 81 mg Atorvastatin Calcium (Lipitor) 20 mg PO DAILY@2100 [facility] Last Admin: 03/21/17 21:36 Dose: 20 mg Vancomycin HCl 1 gm/ Sodium (Chloride) 250 mls @ 166.667 mls/hr IVPB DAILY@ 1700 [facility] Last Admin: 03/21/17 17:05 Dose: 166.667 mls/hr Insulin Human Lispro (Humalog) 0 units SC ACHS [facility] PRN Reason: Protocol Last Admin: 03/22/17 12:26 Dose: Not Given Metformin HCl (Glucophage) 500 mg PO BID [facility] Last Admin: 03/22/17 08:38 Dose: 500 mg Nicotine (Nicoderm Cq) 1 patch TD DAILY [facility] Last Admin: 03/22/17 08:39 Dose: 1 patch Oxycodone/Acetaminophen (Percocet 5/325 Mg Tab) 2 tab PO Q4 PRN PRN Reason: Pain, severe (8-10) Stop: 03/23/17 12:13 Last Admin: 03/22/17 12:38 Dose: 2 tab Povidone Iodine (Betadine 10% Topical Soln) 473 ml TOP DAILY [facility] Last Admin: 03/22/17 08:37 Dose: Not Given Trazodone HCl (Desyrel) 50 mg PO HS [facility] Last Admin: 03/21/17 21:36 Dose: 50 mg - Labs Labs: 03/16/17 06:30 03/16/17 06:30 - Constitutional Appears: Non-toxic, Chronically Ill - Head Exam Head Exam: NORMOCEPHALIC - Eye Exam Eye Exam: PERRL - ENT Exam ENT Exam: Mucous Membranes Dry - Neck Exam Neck Exam: absent: Lymphadenopathy - Respiratory Exam Respiratory Exam: Decreased Breath Sounds - Cardiovascular Exam Cardiovascular Exam: REGULAR RHYTHM - GI/Abdominal Exam GI & Abdominal Exam: Distended, Soft Assessment and Plan (1) Gangrene Status: Acute
[2017-03-22 17:49] LABS: BLOOD UREA NITROGEN 38 mg/dl (9-20); CALCIUM 9.4 mg/dL (8.4-10.2); CARBON DIOXIDE 21 mmol/L (22-30); CHLORIDE 106 mmol/L (98-107); GFR AFRICAN-AMERICAN > 60; GLUCOSE,RANDOM 114 mg/dL (75-110); POTASSIUM 5.9 MMOL/L (3.6-5.0); SODIUM 138 mmol/l (132-148)
[2017-03-22 17:51] LABS: HEMATOCRIT 34.9 % (35.0-51.0); MEAN CELL VOLUME 88.8 fl (80.0-94.0); MEAN CORPUSCULAR HGB CONC 32.6 g/dL (33.0-37.0); RED CELL DISTRIBUTION WIDTH 13.8 % (11.5-14.5); WHITE BLOOD COUNT 9.4 K/uL (4.8-10.8)
--- NOTE | 2017-03-22 23:02 | CP.PCM.PN ---
Subjective - Date & Time of Evaluation Date of Evaluation: 03/21/17 Time of Evaluation: 13:00 Objective - Vital Signs/Intake and Output Vital Signs (last 24 hours): Temp Pulse Resp BP Pulse Ox 99.0 F 47 L 20 135/42 L 99 03/22/17 21:04 03/22/17 21:04 03/22/17 21:04 03/22/17 21:04 03/22/17 21:04 - Medications Medications: Current Medications Acetaminophen (Tylenol 325mg Tab) 650 mg PO Q6 PRN PRN Reason: Pain, Mild (1-3) Aspirin (Aspirin Chewable) 81 mg PO DAILY [facility] Last Admin: 03/22/17 08:38 Dose: 81 mg Atorvastatin Calcium (Lipitor) 20 mg PO DAILY@2100 [facility] Last Admin: 03/22/17 21:00 Dose: 20 mg Vancomycin HCl 1 gm/ Sodium (Chloride) 250 mls @ 166.667 mls/hr IVPB DAILY@ 1700 [facility] Last Admin: 03/22/17 16:41 Dose: 166.667 mls/hr Insulin Human Lispro (Humalog) 0 units SC ACHS [facility] PRN Reason: Protocol Last Admin: 03/22/17 21:00 Dose: Not Given Metformin HCl (Glucophage) 500 mg PO BID [facility] Last Admin: 03/22/17 16:41 Dose: 500 mg Nicotine (Nicoderm Cq) 1 patch TD DAILY [facility] Last Admin: 03/22/17 08:39 Dose: 1 patch Oxycodone/Acetaminophen (Percocet 5/325 Mg Tab) 2 tab PO Q4 PRN PRN Reason: Pain, severe (8-10) Stop: 03/23/17 12:13 Last Admin: 03/22/17 20:11 Dose: 2 tab Povidone Iodine (Betadine 10% Topical Soln) 473 ml TOP DAILY [facility] Last Admin: 03/22/17 08:37 Dose: Not Given Trazodone HCl (Desyrel) 50 mg PO HS [facility] Last Admin: 03/22/17 21:00 Dose: 50 mg - Labs Labs: 03/22/17 17:30 03/22/17 17:15
--- NOTE | 2017-03-22 23:03 | CP.PCM.PN ---
Subjective - Date & Time of Evaluation Date of Evaluation: 03/22/17 Time of Evaluation: 07:30 Objective - Vital Signs/Intake and Output Vital Signs (last 24 hours): Temp Pulse Resp BP Pulse Ox 99.0 F 47 L 20 135/42 L 99 03/22/17 21:04 03/22/17 21:04 03/22/17 21:04 03/22/17 21:04 03/22/17 21:04 - Medications Medications: Current Medications Acetaminophen (Tylenol 325mg Tab) 650 mg PO Q6 PRN PRN Reason: Pain, Mild (1-3) Aspirin (Aspirin Chewable) 81 mg PO DAILY [facility] Last Admin: 03/22/17 08:38 Dose: 81 mg Atorvastatin Calcium (Lipitor) 20 mg PO DAILY@2100 [facility] Last Admin: 03/22/17 21:00 Dose: 20 mg Vancomycin HCl 1 gm/ Sodium (Chloride) 250 mls @ 166.667 mls/hr IVPB DAILY@ 1700 [facility] Last Admin: 03/22/17 16:41 Dose: 166.667 mls/hr Insulin Human Lispro (Humalog) 0 units SC ACHS [facility] PRN Reason: Protocol Last Admin: 03/22/17 21:00 Dose: Not Given Metformin HCl (Glucophage) 500 mg PO BID [facility] Last Admin: 03/22/17 16:41 Dose: 500 mg Nicotine (Nicoderm Cq) 1 patch TD DAILY [facility] Last Admin: 03/22/17 08:39 Dose: 1 patch Oxycodone/Acetaminophen (Percocet 5/325 Mg Tab) 2 tab PO Q4 PRN PRN Reason: Pain, severe (8-10) Stop: 03/23/17 12:13 Last Admin: 03/22/17 20:11 Dose: 2 tab Povidone Iodine (Betadine 10% Topical Soln) 473 ml TOP DAILY [facility] Last Admin: 03/22/17 08:37 Dose: Not Given Trazodone HCl (Desyrel) 50 mg PO HS [facility] Last Admin: 03/22/17 21:00 Dose: 50 mg - Labs Labs: 03/22/17 17:30 03/22/17 17:15
[2017-03-23] MEDS: Oxycodone/Acetaminophen 5/325 mg Tab PO PRN ×2 (00:34→06:43)
--- NOTE | 2017-03-23 05:59 | CP.PCM.PN ---
Subjective - Date & Time of Evaluation Date of Evaluation: 03/23/17 Time of Evaluation: 06:42 - Subjective Subjective: Podiatry Progress Note - Dr. Joyce 61 year old male seen at bedside in TCU 11 days s/p R foot 1st and 4th distal phalanx amputations. Patient is seen resting comfortably in bed, sleeping at time of visit. Patient appears to be in NAD and is AAOx3. Patient denies any acute overnight events. Patient states he will be going home today and returning to the [facility]. Patient states he plans to follow up back in [place] with Dr. Irizarry and Dr. Colunga. Patient denies any F/C/N/V/CP/SOB. Patient denies of any other pedal complains at this time. Objective - Vital Signs/Intake and Output Vital Signs (last 24 hours): Temp Pulse Resp BP Pulse Ox 99.0 F 47 L 20 135/42 L 99 03/22/17 21:04 03/22/17 21:04 03/22/17 21:04 03/22/17 21:04 03/22/17 21:04 - Medications Medications: Current Medications Acetaminophen (Tylenol 325mg Tab) 650 mg PO Q6 PRN PRN Reason: Pain, Mild (1-3) Aspirin (Aspirin Chewable) 81 mg PO DAILY [facility] Last Admin: 03/22/17 08:38 Dose: 81 mg Atorvastatin Calcium (Lipitor) 20 mg PO DAILY@2100 [facility] Last Admin: 03/22/17 21:00 Dose: 20 mg Vancomycin HCl 1 gm/ Sodium (Chloride) 250 mls @ 166.667 mls/hr IVPB DAILY@ 1700 [facility] Last Admin: 03/22/17 16:41 Dose: 166.667 mls/hr Insulin Human Lispro (Humalog) 0 units SC ACHS [facility] PRN Reason: Protocol Last Admin: 03/22/17 21:00 Dose: Not Given Metformin HCl (Glucophage) 500 mg PO BID [facility] Last Admin: 03/22/17 16:41 Dose: 500 mg Nicotine (Nicoderm Cq) 1 patch TD DAILY [facility] Last Admin: 03/22/17 08:39 Dose: 1 patch Oxycodone/Acetaminophen (Percocet 5/325 Mg Tab) 2 tab PO Q4 PRN PRN Reason: Pain, severe (8-10) Stop: 03/23/17 12:13 Last Admin: 03/23/17 00:34 Dose: 2 tab Povidone Iodine (Betadine 10% Topical Soln) 473 ml TOP DAILY [facility] Last Admin: 03/22/17 08:37 Dose: Not Given Trazodone HCl (Desyrel) 50 mg PO HS [facility] Last Admin: 03/22/17 21:00 Dose: 50 mg - Labs Labs: 03/22/17 17:30 03/22/17 17:15 - Constitutional Appears: Well, Non-toxic, No Acute Distress - Extremities Exam Additional comments: Right lower extremity focused examination: VASC: DP and PT pulses palpable 1/4. CFT < 3 sec to all digits. Temperature gradient warm to cool from proximal to distal. No pedal edema noted. DERM: Surgical sites at distal aspect of 1st and 4th digits with sutures intact , no signs of increased tension or dehiscence at incision sites. Skin edges are well coapted. No malodor, no purulence expressed. No serous drainage or maceration noted. No tunneling or undermining noted. NEURO: Protective sensation grossly diminished ORTHO: Tenderness on palpation of the distal tip of the 4th digit surgical site. No tenderness to palpation noted to 1st digit. - Neurological Exam Neurological Exam: Alert, Awake, Oriented x3 - Psychiatric Exam Psychiatric exam: Normal Affect, Normal Mood Assessment and Plan - Assessment and Plan (Free Text) Assessment: 61 year old diabetic male 11 days s/p R foot 1st and 4th distal phalanx amputations secondary to osteomyelitis Plan: Patient examined and evaluated Discussed with attending Dr. Joyce Chart, labs and vitals reviewed- afebrile, last taken WBC @ 9.4 as of yesterday Cleansed 1st and 4th digits of R foot with saline Dressing applied to R foot with saline-soaked 4x4 gauze and DSD Patient to complete his course of IV abx per ID in TCU Pt to continue ambulation with surgical shoe on at all times weightbearing Upon D/C today, patient to follow up with Dr. Irizarry in Wound care center or Juan C's office - Patient demonstrated verbal understanding and agrees with the plan Podiatry to continue with daily dressing changes while patient is in house
[2017-03-23] MEDS: Insulin Lispro (humaLOG) 100 Units/ml Inj SC SCH (06:39)
[2017-03-23] MEDS ORDERED: Sod Polystyrene Sulf 15 gm/60 ml Oral Susp PO ONE (08:10)
[2017-03-23 08:23] VITALS: BP 159/75; PULSE 55; TEMP 99.3; O2SAT 98
[2017-03-23] MEDS: Povidone Iodine Topical 10% Sol TOP SCH (08:43)
--- NOTE | 2017-03-23 22:22 | CP.PCM.DIS ---
Provider - Provider Date of Admission: 03/13/17 21:46 Attending physician: Kimmy Oneal MD Time Spent in preparation of Discharge (in minutes): 25 Hospital Course - Lab Results Lab Results: Most Recent Lab Values WBC 9.4 K/uL (4.8-10.8) D 03/22/17 17:30 RBC 3.93 Mil/uL (4.40-5.90) L 03/22/17 17:30 Hgb 11.4 g/dL (12.0-18.0) L 03/22/17 17:30 Hct 34.9 % (35.0-51.0) L 03/22/17 17:30 MCV 88.8 fl (80.0-94.0) 03/22/17 17:30 MCH 29.0 pg (27.0-31.0) 03/22/17 17:30 MCHC 32.6 g/dL (33.0-37.0) L 03/22/17 17:30 RDW 13.8 % (11.5-14.5) 03/22/17 17:30 Plt Count 206 K/uL (130-400) 03/22/17 17:30 MPV 10.1 fl (7.2-11.7) 03/16/17 06:30 Neut % (Auto) 44.7 % (50.0-75.0) L 03/16/17 06:30 Lymph % (Auto) 31.7 % (20.0-40.0) 03/16/17 06:30 Major % (Auto) 14.4 % (0.0-10.0) H 03/16/17 06:30 Eos % (Auto) 8.3 % (0.0-4.0) H 03/16/17 06:30 Baso % (Auto) 0.9 % (0.0-2.0) 03/16/17 06:30 Neut # 2.7 K/uL (1.8-7.0) 03/16/17 06:30 Lymph # 1.9 K/uL (1.0-4.3) 03/16/17 06:30 Major # 0.9 K/uL (0.0-0.8) H 03/16/17 06:30 Eos # 0.5 K/uL (0.0-0.7) 03/16/17 06:30 Baso # 0.1 K/uL (0.0-0.2) 03/16/17 06:30 Sodium 138 mmol/l (132-148) 03/22/17 17:15 Potassium 5.9 MMOL/L (3.6-5.0) H 03/22/17 17:15 Chloride 106 mmol/L (98-107) 03/22/17 17:15 Carbon Dioxide 21 mmol/L (22-30) L 03/22/17 17:15 Anion Gap 17 (10-20) 03/22/17 17:15 BUN 38 mg/dl (9-20) H 03/22/17 17:15 Creatinine 1.2 mg/dL (0.8-1.5) 03/22/17 17:15 Est GFR ( Amer) > 60 03/22/17 17:15 Est GFR (Non-Af Amer) > 60 03/22/17 17:15 POC Glucose (mg/dL) 82 mg/dL (65-110) 03/23/17 06:37 Random Glucose 114 mg/dL (75-110) H 03/22/17 17:15 Calcium 9.4 mg/dL (8.4-10.2) 03/22/17 17:15 Total Bilirubin 0.2 mg/dl (0.2-1.3) 03/16/17 06:30 AST 27 U/L (17-59) 03/16/17 06:30 ALT 35 U/L (21-72) 03/16/17 06:30 Alkaline Phosphatase 62 U/L (38-126) 03/16/17 06:30 Total Protein 7.1 G/DL (6.3-8.2) 03/16/17 06:30 Albumin 3.7 g/dL (3.5-5.0) 03/16/17 06:30 Globulin 3.4 gm/dL (2.2-3.9) 03/16/17 06:30 Albumin/Globulin Ratio 1.1 (1.0-2.1) 03/16/17 06:30 Prostate Specific Ag 0.950 ng/ML (0.00-4.0) 03/15/17 14:30 Urine Color Yellow (YELLOW) 03/15/17 23:59 Urine Clarity Cloudy (Clear) 03/15/17 23:59 Urine pH 5.0 (5.0-8.0) 03/15/17 23:59 Ur Specific [place] 1.021 (1.003-1.030) 03/15/17 23:59 Urine Protein Negative mg/dL (NEGATIVE) 03/15/17 23:59 Urine Glucose (UA) Neg mg/dL (Normal) 03/15/17 23:59 Urine Ketones Negative mg/dL (NEGATIVE) 03/15/17 23:59 Urine Blood Small (NEGATIVE) 03/15/17 23:59 Urine Nitrate Negative (NEGATIVE) 03/15/17 23:59 Urine Bilirubin Negative (NEGATIVE) 03/15/17 23:59 Urine Urobilinogen 0.2-1.0 mg/dL (0.2-1.0) 03/15/17 23:59 Ur Leukocyte Esterase Large [place]/uL (Negative) 03/15/17 23:59 Urine RBC (Auto) 8 /hpf (0-3) H 03/15/17 23:59 Urine Microscopic WBC 218 /hpf (0-5) H 03/15/17 23:59 Ur Squamous Epith Cells 1 /hpf (0-5) 03/15/17 23:59 Urine Bacteria Mod (<OCC) H 03/15/17 23:59 Vancomycin Trough 7.5 ug/mL (5.0-10.0) 03/16/17 16:33 Discharge Exam - Head Exam Head Exam: NORMOCEPHALIC Discharge Plan - Follow Up Plan Condition: GOOD Disposition: HOME/ ROUTINE Instructions: Chronic Wound Care (DC), Surgical Site Infections (DC), Toe Amputation (DC), Fall Prevention (DC) Additional Instructions: [facility] UP [facility] [place] [facility] [place] Referrals: Neena Irizarry DPM [[facility]] - Sagrario Joyce DPM [Staff Provider] -
== END 2017-03-23 08:45 | disposition home or self-care (01) | DRG 560 ==
LOC: H.TCU 21:46 → UNDODISIN 22:45
PROVIDERS: ADMIT Internal Medicine; ATTEND Internal Medicine
PROC: F07M6FZ Therapeutic Exercise Treatment of Musculoskeletal System - Whole Body using Assistive, Adaptive, Supportive or Protective Equipment (ICD-10-PCS; principal; 2017-03-14)
PROC: F08Z4FZ Home Management Treatment using Assistive, Adaptive, Supportive or Protective Equipment (ICD-10-PCS; 2017-03-14)
DX: Z47.81 Encounter for orthopedic aftercare following surgical amputation (principal); E11.52 Type 2 diabetes mellitus with diabetic peripheral angiopathy with gangrene; Z89.512 Acquired absence of left leg below knee; M86.9 Osteomyelitis, unspecified; E11.9 Type 2 diabetes mellitus without complications; I10 Essential (primary) hypertension; D64.9 Anemia, unspecified; F41.9 Anxiety disorder, unspecified; F17.210 Nicotine dependence, cigarettes, uncomplicated; E78.00 Pure hypercholesterolemia, unspecified; Z85.46 Personal history of malignant neoplasm of prostate; Z95.1 Presence of aortocoronary bypass graft; Z86.19 Personal history of other infectious and parasitic diseases; M79.676 Pain in unspecified toe(s); Z89.421 Acquired absence of other right toe(s); Z89.411 Acquired absence of right great toe